=== PATIENT | female | born 1950 | race Hispanic/Latino ===

== ENCOUNTER 2017-12-26 18:25 | Emergency (ER) | payer MEDICARE ==
[~2017-12-26] VITALS: Ht 157.5 cm; Wt 98.0 kg
[~2017-12-26 18:25] MED LIST: ALDACTONE25 MG PO; ASPIRIN81 MG PO; ATORVASTATIN CA20 MG PO; CLOPIDOGREL75 MG PO; FAMOTIDINE20 MG PO; FUROSEMIDE40 MG PO; HYDROXYZINE HCL25 MG PO; LISINOPRIL10 MG PO; LOSARTAN POTASS25 MG PO; METOPROLOL TART25 MG PO; METOPROLOL TART50 MG PO; PREDNISONE10 MG PO; PROTONIX40 MG/ML PO
[2017-12-26] MEDS ORDERED: METHYLPREDNISOLONE SOD SUCC 125 MG/2ML VIAL IM ONE (18:45)
[2017-12-26 19:08] VITALS: BP 145/71
== END 2017-12-26 19:13 | disposition home or self-care (01) ==
LOC: FSED 18:25
DX: L27.0 Generalized skin eruption due to drugs and medicaments taken internally (principal); T39.1X5A Adverse effect of 4-Aminophenol derivatives, initial encounter
CPT/HCPCS: 99282; J2930

== ENCOUNTER 2018-12-13 17:32 | Emergency (ER) | payer MEDICARE ==
[~2018-12-13] VITALS: Ht 157.5 cm; Wt 98.0 kg
--- OUTSIDE RECORDS SUMMARY | 2018-12-13 17:34 | XMS REPORT | Clinical Summary ---
Author Author [facility] Organization [facility] Address Unknown Phone Unavailable Care Team Providers Care Guitar Maker Hand Name Role Phone Sharpless PCP Diego Salvador Unavailable Allergies Comments Active Allergy Reactions Severity Noted Date Rash, eosinophilia Ertapenem 03/09/2015 Medications End Date Status Medication Sig Dispensed Refills Start Date Active insulin lispro (HUMALOG) <150 No 10 mL 0 100 unit/mL injection Insulin. 5 151 - 200 1 unit 201 - 250 2 units 251 - 300 4 units 301 - 350 6 units 351 - 400 8 units. >400, give 8 u call pcp. Active famotidine (PEPCID) 40 MG Take 40 mg by 0 tablet mouth daily. Active docusate sodium (COLACE) Take 100 mg 0 100 MG capsule by mouth 2 (two) times daily. Active Problems Problem Noted Date Acute myocardial infarction of inferolateral wall, initial episode of care 02/11/2015 Multiple vessel coronary artery disease 02/11/2015 Chronic total occlusion of coronary artery 02/11/2015 Diabetes mellitus with complication 02/11/2015 Cardiac arrest 02/07/2015 Social History Date Tobacco Use Types Packs/Day Years Used Unknown If Ever Smoked Alcohol Use Drinks/Week oz/Week Comments No Sex Assigned at Date Recorded Not on file Industry Job Start Date Occupation Not on file Not on file Not on file Travel End Travel History Travel Start No recent travel history available. 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 02/17/2016 [id number] / / [id number] Promus Premier [place] Implanted: Qty: 1 on 02/07/2015 SCIENTIFIC 04/14/2016 [id number] / / [id number] Promus Premier [place] Implanted: Qty: 1 on 02/07/2015 [employer]ENTIFIC 03/10/2016 [id number] / / [id number] Promus Premier [place] Implanted: Qty: 1 on 02/07/2015 [employer]ENTIFIC Results Not on fileafter 12/12/2017 Insurance Payer Benefit Subscriber ID Type Phone Address Plan / Group MEDICARE MEDICARE A xxxxxxxxxx Medicare B MEDICAID MEDICAID xxxxxxxxx Medicaid OF [place] Advance Directives For more information, please contact: [facility] [address] [place] [address] Date Inactivated Comments Code Status Date Activated 05/22/2015 11:31 PM Full Code 02/07/2015 11:51 AM This code status was determined by: Patient
--- OUTSIDE RECORDS SUMMARY | 2018-12-13 17:34 | XMS REPORT ---
Author Author [facility] Address Unknown Phone Unavailable Care Team Providers Care Greenhouse Specialist Name Role Phone RITIKA GILBERT Unavailable Unavailable Problems This patient has no known problems. Allergies, Adverse Reactions, Alerts This patient has no known allergies or adverse reactions. Medications This patient has no known medications. Results Test Description Test Time Test Comments Text Results Atomic Results Result Comments AMIKACIN LEVEL, RANDOM 2017-10-28 11:13:00 AMIKACIN, RANDOM (HAY) (test [id number]) 13.4 mcg/mL SCAN RESULT (test [id number])
--- NOTE | 2018-12-13 21:02 | Diagnostic Imaging Report ---
CXR 2 VIEW - HOPD, 12/13/2018 12:00 AM Technique: CXR 2 VIEW - HOPD Comparison: None available. Clinical history: Flu Findings: See Impression Impression: 1. Mildly enlarged cardiac silhouette. 2. Prominent ben which may be related to enlargement of the central pulmonary arteries. Adenopathy not excluded but considered less likely. Recommend comparison with priors or attention on follow-up. 3. No consolidation or edema. No effusion or pneumothorax. Signed by: Dr Laura Al MD on 12/13/2018 8:59 PM
[2018-12-13 21:32] VITALS: BP 143/81
== END 2018-12-13 21:36 | disposition home or self-care (01) ==
LOC: FSED 17:32
DX: R05 Cough (principal); J20.9 Acute bronchitis, unspecified; J02.9 Acute pharyngitis, unspecified
CPT/HCPCS: 71046; 80053; 81003; 82553; 83518; 84484; 85025; 87400; 93005; 99283

== ENCOUNTER 2020-04-30 20:49 | Inpatient (IN) | payer MEDICARE, OTHER ==
[~2020-04-30] VITALS: Ht 157.5 cm; Wt 98.9 kg
[~2020-04-30 20:49] MED LIST changes: +ETOMIDATE 2 MG/ML 10 ML INJ IV ONE; +MIDAZOLAM HCL 2 MG/2 ML VIAL ONE; +SUCCINYLCHOLINE CHLORIDE 20 MG/ML 10ML VIAL ONE
[2020-04-30] MEDS ORDERED: AMIODARONE HCL 150MG 100 ML ONE (21:20)
[2020-04-30] MEDS ORDERED: PROPOFOL IV EMULSION 10MG/ML 100 ML ONE (21:21)
[2020-04-30] MEDS ORDERED: AMIODARONE 900MG 500 ML IV ONE (21:30)
[2020-04-30] MEDS ORDERED: SODIUM CHLORIDE 0.9% 1000ML 2,000 ML ONE (21:45)
[2020-04-30 21:46] LABS: BASOPHILS % 0.1 % (0.0-1.0); EOSINOPHILS % 0.4 % (0.0-6.0); HEMATOCRIT 39.1 % (34.2-44.1); HEMOGLOBIN 11.8 g/dL (12.0-16.0); LYMPHOCYTES # (AUTO) 1.5 (1.0-3.2); LYMPHOCYTES % 20.3 % (18.0-39.1); MEAN CORPUSCULAR HEMOGLOBIN 29.4 pg (28-32); MEAN CORPUSCULAR HGB CONC 30.2 g/dL (31-35); MEAN CORPUSCULAR VOLUME 97.3 fL (81-99); MONOCYTES # (AUTO) 0.2 (0.2-0.8); MONOCYTES % 2.1 % (4.4-11.3); NEUTROPHILS # (AUTO) 5.6 (2.1-6.9); NEUTROPHILS % 75.4 % (38.7-80.0); PLATELET COUNT 143 x10e3/uL (140-360); RED BLOOD COUNT 4.02 x10e6/uL (3.6-5.1); RED CELL DISTRIBUTION WIDTH 13.6 % (11.7-14.4)
[2020-04-30 21:58] LABS: INR 0.98; PROTHROMBIN TIME 13.6 seconds (11.9-14.5)
[2020-04-30 21:59] LABS: PARTIAL THROMBOPLASTIN TIME 35.7 seconds (23.8-35.5)
[2020-04-30] MEDS ORDERED: CEFTRIAXONE SOD 1 GM/NS 50 ML 50 ML IV ONE (22:00)
[2020-04-30] MEDS ORDERED: AZITHROMYCIN 500MG/NS 250 ML 250 ML IV ONE (22:00)
[2020-04-30] MEDS ORDERED: SODIUM CHLORIDE 0.9% 1000ML 1,000 ML IV ONE ×2 (22:00)
[2020-04-30] MEDS ORDERED: ACETAMINOPHEN 325 MG/10 ML UDC NG ONE (22:00)
[2020-04-30 22:03] LABS: ABG PH 7.26 (7.35-7.45)
[2020-04-30 22:04] LABS: ABG HCO3 20 mmol/L (22-26); ABG PCO2 46 mmHg (35-45); ABG PO2 66 mmHg (80-105)
[2020-04-30 22:07] LABS: ALBUMIN 2.5 g/dL (3.5-5.0); ALBUMIN/GLOBULIN RATIO 0.6 (0.8-2.0); ANION GAP 16.6 mmol/L (8-16); CREATININE, SERUM 1.56 mg/dL (0.57-1.11); POTASSIUM 4.6 mmol/L (3.5-5.1)
[2020-04-30] MEDS ORDERED: PROPOFOL IV EMULSION 10MG/ML 100 ML IV PRN (22:15)
[2020-04-30 22:21] LABS: CALCIUM 7.5 mg/dL (8.4-10.2)
--- NOTE | 2020-04-30 22:22 | NUR ---
DEBORAH MARIE NOTIFIED AND AWARE OF CRITICAL LAB VALUE, BLOOD GLUCOSE 457.
[2020-04-30] MEDS ORDERED: INSULIN REGULAR, HUMAN 100 UNIT/1 ML 3ML VIAL SQ ONE (22:30)
[2020-04-30 22:41] LABS: CLARITY,URINE CLOUDY (CLEAR); COLOR,URINE YELLOW (YELLOW); KETONES,URINE NEGATIVE (NEGATIVE); LEUKOCYTE ESTERASE ,URINE NEGATIVE (NEGATIVE); NITRITE,URINE NEGATIVE (NEGATIVE)
[2020-04-30 22:42] LABS: BILIRUBIN,URINE NEGATIVE (NEGATIVE); PROTEIN,URINE DIPSTICK >=300 (NEGATIVE)
[2020-04-30 22:54] LABS: AMORPHOUS SEDIMENT,URINE MANY (FEW); BACTERIA,URINE MANY /HPF; EPITHELIAL CELLS,URINE MANY /LPF; RBC,URINE >50 /HPF (0-5); WBC,URINE (MAN) 21-50 /HPF (0-5)
[2020-04-30] MEDS ORDERED: ACETAMINOPHEN 1000 MG/100 ML IV STA (23:01)
[2020-04-30] MEDS ORDERED: NOREPINEPHRINE 8 MG/D5W 250 ML 250 ML ONE (23:06)
[2020-04-30] MEDS ORDERED: AMIODARONE HCL 150 MG/100 ML BAG IV ONE (23:15)
[2020-04-30] MEDS ORDERED: NOREPINEPHRINE INJ 4MG/4ML 8 MG in DEXTROSE 5% 250ML 250 ML IV PRN (23:15)
[2020-04-30] MEDS ORDERED: MIDAZOLAM HCL 5MG/ML 10ML VIAL 100 ML IV ONE (23:27)
[2020-04-30] MEDS ORDERED: FENTANYL 2000MCG/NS 250 250 ML ONE (23:27)
[2020-04-30] MEDS: MIDAZOLAM HCL 50 MG in SODIUM CHLORIDE 0.9% 100 ML 90 ML IV PRN (23:28)
[2020-04-30] MEDS: FENTANYL CITRATE INJ 2,000 MCG in SODIUM CHLORIDE 0.9% 250ML 210 ML IV PRN (23:28)
[2020-05-01] VITALS (38 sets, daily range): BP systolic 80–141; BP diastolic 42–117
[2020-05-01] MEDS: NOREPINEPHRINE INJ 4MG/4ML 8 MG in DEXTROSE 5% 250ML 242 ML IV PRN ×2 (00:12→06:00)
--- NOTE | 2020-05-01 00:39 | Emergency Department Note ---
History of Present Illnes History of Present Illness Chief Complaint: Respiratory History of Present Illness This is a 69 year old female ARRIVED VIA EMS WITH REPORT OF SEIZURE ACTIVITY AND NOW UNRESPONSIVE AND NOT BREATHING.PT IS BEING BAGGED BY EMS ON ARRIVAL WITH 02 SATS OF 86 %. . 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 Any updates have been documented here. 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) Sulfa (Sulfonamide Antibiotics) (Verified Allergy, Unknown, 08/11/16) losartan (Verified Allergy, Unknown, rash over body, 08/12/16) Triage Vital Signs Vital Signs Date Time Temp Pulse Resp B/P (MAP) Pulse Ox O2 Delivery O2 Flow Rate FiO2 04/30/20 21:20 133 30 89 33.0 04/30/20 23:16 100.8 102/58 Vital signs reviewed: Yes Physical Exam CONSTITUTIONAL Constitutional: Present ill appearing, Present other (BEING BAGGED BY EMS ON ARRIVAL) HENT HENT: Present normocephalic, Present atraumatic HENT L/R: Present left ext ear normal, Present right ext ear normal EYES Eyes: Reports PERRL, Reports conjunctivae normal NECK Neck: Present ROM normal PULMONARY Pulmonary: Present respiratory distress, Present rhonchi (AT BASE BILATERAL), Present other (BEING BAGGED BY EMS ON ARRIVAL) CARDIOVASCULAR Cardiovascular: Present regular rhythm, Present heart sounds normal, Present ca pillary refill normal, Present normal rate GASTROINTESTINAL Abdominal: Present soft, Present nontender, Present bowel sounds normal GENITOURINARY Genitourinary: Present exam deferred SKIN Skin: Present warm, Present dry MUSCULOSKELETAL Musculoskeletal: Present ROM normal NEUROLOGICAL Neurological: Present other (PT UNRESPONSIVE, NO RESPONSE TO PAINFUL STIMULI ) PSYCHOLOGICAL Psychological: Present mood/affect normal, Present judgement normal Results Laboratory Result Diagram: 04/30/20213004/30/202130 Laboratory Laboratory Tests Test 04/30/20 23:29 04/30/20 22:07 04/30/20 21:49 04/30/20 21:31 Lactic Acid Level 2.2 mmol/L (0.5-2.0) 5.0 mmol/L (0.5-2.0) B-Type Natriuretic Peptide 358.0 pg/mL (0-100) Arterial Blood pH 7.26 (7.35-7.45) Arterial Blood Partial Pressure CO2 46 mmHg (35-45) Arterial Blood Partial Pressure O2 66 mmHg (80-105) Arterial Blood HCO3 20 mmol/L (22-26) Arterial Blood Oxygen Saturation 89.0 % (95-98) Arterial Blood Base Excess -7.0 mmol/L (-2 - 3) FiO2 100 % White Blood Count 7.49 x10e3/uL (4.8-10.8) Red Blood Count 4.02 x10e6/uL (3.6-5.1) Hemoglobin 11.8 g/dL (12.0-16.0) Hematocrit 39.1 % (34.2-44.1) Mean Corpuscular Volume 97.3 fL (81-99) Mean Corpuscular Hemoglobin 29.4 pg (28-32) Mean Corpuscular Hemoglobin Concent 30.2 g/dL (31-35) Red Cell Distribution Width 13.6 % (11.7-14.4) Platelet Count 143 x10e3/uL (140-360) Neutrophils (%) (Auto) 75.4 % (38.7-80.0) Lymphocytes (%) (Auto) 20.3 % (18.0-39.1) Monocytes (%) (Auto) 2.1 % (4.4-11.3) Eosinophils (%) (Auto) 0.4 % (0.0-6.0) Basophils (%) (Auto) 0.1 % (0.0-1.0) Neutrophils # (Auto) 5.6 (2.1-6.9) Lymphocytes # (Auto) 1.5 (1.0-3.2) Monocytes # (Auto) 0.2 (0.2-0.8) Eosinophils # (Auto) 0.0 (0.0-0.4) Basophils # (Auto) 0.0 (0.0-0.1) Absolute Immature Granulocyte (auto 0.13 x10e3/uL (0-0.1) Prothrombin Time 13.6 seconds (11.9-14.5) Prothromb Time International Ratio 0.98 Activated Partial Thromboplast Time 35.7 seconds (23.8-35.5) Urine Color Yellow (YELLOW) Urine Clarity Cloudy (CLEAR) Urine pH 6 (5 - 7) Urine Specific [place] >=1.030 (1.010-1.025) Urine Protein >=300 (NEGATIVE) Urine Glucose (UA) 2+ (NEGATIVE) Urine Ketones Negative (NEGATIVE) Urine Blood 2+ (NEGATIVE) Urine Nitrite Negative (NEGATIVE) Urine Bilirubin Negative (NEGATIVE) Urine Urobilinogen 4.0 mg/dL (0.2 - 1) Urine Leukocyte Esterase Negative (NEGATIVE) Urine RBC >50 /HPF (0-5) Urine WBC 21-50 /HPF (0-5) Urine Epithelial Cells Many /LPF (NONE) Urine Amorphous Sediment Many (FEW) Urine Bacteria Many /HPF (NONE) Urine Hyaline Casts 2-5 (0-1) Urine Fine Granular Casts 6-10 (0) Urine Coarse Granular Casts 6-10 (0) Sodium Level 132 mmol/L (136-145) Potassium Level 4.6 mmol/L (3.5-5.1) Chloride Level 99 mmol/L (98-107) Carbon Dioxide Level 21 mmol/L (22-29) Anion Gap 16.6 mmol/L (8-16) Blood Urea Nitrogen 15 mg/dL (7-26) Creatinine 1.56 mg/dL (0.57-1.11) Estimat Glomerular Filtration Rate 33 ML/MIN (60-) BUN/Creatinine Ratio 10 (6-25) Glucose Level 457 mg/dL (74-118) Calcium Level 7.5 mg/dL (8.4-10.2) Total Bilirubin 0.5 mg/dL (0.2-1.2) Aspartate Amino Transf (AST/SGOT) 175 IU/L (5-34) Alanine Aminotransferase (ALT/SGPT) 75 IU/L (0-55) Alkaline Phosphatase 185 IU/L (40-150) Creatine Kinase 201 IU/L (29-168) Creatine Kinase MB 3.00 ng/mL (0-5.0) Troponin I 0.033 ng/mL (0-0.300) Total Protein 6.5 g/dL (6.5-8.1) Albumin 2.5 g/dL (3.5-5.0) Globulin 4.0 g/dL (2.3-3.5) Albumin/Globulin Ratio 0.6 (0.8-2.0) Lab results reviewed: Yes Imaging Imaging results reviewed: Yes Impressions EXAMINATION: CHEST SINGLE (PORTABLE) INDICATION: Short of breath, intubated COMPARISON: None FINDINGS: TUBES and LINES: ET tube tip 4.2 cm above eliseo.. LUNGS: Extensive bilateral patchy airspace opacities. PLEURA: No pleural effusion or pneumothorax. HEART AND MEDIASTINUM: The cardiomediastinal silhouette is unremarkable. BONES AND SOFT TISSUES: No acute osseous lesion. Soft tissues are unremarkable. UPPER ABDOMEN: No free air under the diaphragm. IMPRESSION: Extensive airspace disease concerning for multifocal pneumonia, likely viral. Edema is also a possibility. ET tube tip 4.2 cm above eliseo.. Signed by: Rupert Coronel DO on 05/01/2020 1:[address] MPRESSION: 1. No acute intracranial abnormalities. 2. Mild supratentorial chronic microvascular ischemic change with old right charles radiata lacunar infarct. 3. Mild generalized cerebral volume loss. Signed by: Dr. Roque Angeles M.D. on 05/01/2020 1:45 AM Imaging Comments et tube advance 2 cm Procedures 12 Lead ECG Interpretation ECG Interpretation : ECG: ECG 1 Conductor/Engineer: Interpreted by ED physician Date: May 01, 2020 Time: 21:01 Rhythm: atrial flutter Rate: tachycardia BPM: 129 QRS axis: normal ST segments normal: No (NON SPECIFIC CHANGES) T waves normal: No (NON PSECIFIC CHANGES) Q waves: II, III, aVF, V1 Clinical Impression: abnormal ECG Central Line Placement Central Line Location: right femoral Time out performed: No Patient Placed on Monitor/Puls: Yes Prep: mask, gown, gloves Central Line Prep: Chlorhexidine scrub Ultrasound Used for Placement: No Central Line Lumen Inserted: triple Post Procedure: sutured in place, good blood return, all ports aspirated/flushed/capped, sterile dressing applied Patient tolerated procedure: well Complications: none Intubation Time out performed: No Sedative: Etomidate Mg given: 20 Paralytic: Succinylcholine Mg given: 100 Laryngoscope: fiber optic video scope Endotracheal tube size: 7.5 ET tube uncuffed: Yes Tube secured depth (cm): 22 Tube secured location: teeth Tube placement confirmation: visualize tube passing cords, equal breath sounds bilaterally, no breath sounds over epigastrium, capnometry Patient tolerated procedure: well Complications: none Critical Care Time Total Critical Care Time (min): 55 Time ED Physician saw patient: 20:50 Critical care time exclusive o: treating other patients Critcal care necessary due to: circulatory failure, PARKING INSPECTOR failure or compromise, respiratory failure, sepsis, shock Critcal care time spent by me: develop tx plan w patient/surrogate, discussion w consultants, interpret cardiac output measures, evaluation patient response to tx, examination of patient, obtaining hx from patient/surrogate, order/perform tx or interventions, order/review laboratory studies, order/review radiographic studies, pulse oximetry, re-evaluation of patient condition, review of old charts, vascular access procedures, ventilator management Assessment & Plan Medical Decision Making MDM PT UNRESPONSIVE, FEBRILE WITH RESPIRATORY DISTRESS ON ARRIVAL CBC, CMP, EKG, LACTIC ACID, BLOOD CULTURE, URINE CULTURE, UA, CXR, CT BRAIN , COVID 19, CARDIAC ENZYMES, ORDERED TO EVAL FOR SEPSIS, PNEUMONIA, UTI, COVID 19, ELECTROLYTE ABNORMALITY, MYOCARDIAL INFARCTION, PULMONARY EDEMA, PT REQUIRES INTUBATION ON ARRIVAL ROCEPHIN 1 GRAM IV ORDERED ZITHROMAX 500 MG IV ORDERED PT BECAME HYPOTENSIVE, NS 30CC/KG ORDERED PT'S IDEAL BODY WEIGHT OF 50 KG USED FOR THIS BOLUS PT BECAME HYPOTENSIVE AGAIN AT 0005 AND LEVOPHED STARTED, I COMPLETED BEDSIDE FLUID RESUSCITATION EXAM AT 0005 PT'S FAMILY SHOWED UP AT 2225 AND STATES PT HAD A POSITIVE COVID 19 TEST ON FRIDAY, as we have no icu beds pt will need transfer to another facility i spoke with dr Garner at [facility] and he accepts pt for transfer Assessment & Plan Final Impression: (1) COVID-19 (2) Viral pneumonia (3) UTI (urinary tract infection) (4) Respiratory failure (5) Septic shock Depart Disposition: TRANS TO OTHER [facility] FAC[facility] Last Vital Signs Date Time Temp Pulse Resp B/P (MAP) Pulse Ox O2 Delivery O2 Flow Rate FiO2 05/01/20 00:19 100.2 77 24 71/46 90 04/30/20 21:20 33.0 Home Meds Active Scripts Pantoprazole Sod (PROTONIX) 40 Mg/Ml Susp, 40 MG PO ACB for 30 Days Prov:DILCIA DIXON 08/12/16 Lisinopril (LISINOPRIL) 10 Mg Tablet, 10 MG PO Q12HR for 30 Days Prov:DILCIA DIXON 08/12/16 Reported Medications Furosemide (FUROSEMIDE) 40 Mg Tablet, 20 MG PO Daily, #30 TAB 08/11/16 Metoprolol Tartrate (METOPROLOL TARTRATE) 50 Mg Tablet, 50 MG PO DAILY, TAB 08/11/16 Aspirin (ASPIRIN) 81 Mg Tab.chew, 81 MG PO DAILY 11/14/15 Atorvastatin Calcium (ATORVASTATIN CALCIUM) 20 Mg Tablet, 20 MG PO 2100, TAB 11/14/15 Clopidogrel Bisulfate (CLOPIDOGREL) 75 Mg Tablet, 75 MG PO DAILY, #30 TAB 11/14/15 Medications in the ED Amiodarone HCl 100 ml @ ud STK-MED ONCE .ROUTE ; Start 04/30/20 at 21:20; Stop 04/30/20 at 21:15; Status DC Propofol 100 ml @ ud STK-MED ONCE .ROUTE ; Start 04/30/20 at 21:21; Stop at 21:15; Status DC Amiodarone HCl 500 ml @ ud STK-MED ONCE IV ; Start 04/30/20 at 21:30; Stop 04/30/20 at 21:25; Status DC Sodium Chloride 2,000 ml @ ud STK-MED ONCE .ROUTE ; Start 04/30/20 at 21:45; Stop 04/30/20 at 21:40; Status DC Sodium Chloride 1,000 ml @ 0 mls/hr Q0M ONCE IV Last administered on 04/30/20at 22:00; Admin Dose 999 MLS/HR; Start 04/30/20 at 22:00; Stop 04/30/20 at 22:01; Status DC Sodium Chloride 1,000 ml @ 0 mls/hr Q0M ONCE IV Last administered on 04/30/20at 22:30; Admin Dose 999 MLS/HR; Start 04/30/20 at 22:00; Stop 04/30/20 at 22:01; Status DC Ceftriaxone Sodium 50 ml @ 100 mls/hr ONCE ONCE IV Last administered on 04/30/20at 23:28; Admin Dose 100 MLS/HR; Start 04/30/20 at 22:00; Stop 04/30/20 at 22:29; Status DC Azithromycin 250 ml @ 200 mls/hr NOW ONCE IV Last administered on 04/30/20at 23:28; Admin Dose 200 MLS/HR; Start 04/30/20 at 22:00; Stop 04/30/20 at 23:14; Status DC Acetaminophen 975 mg ONCE ONCE NG ; Start 04/30/20 at 22:00; Stop 04/30/20 at 23:02; Status DC Propofol 100 ml @ 0 mls/hr TITRATE PRN IV SEDATION; Start 04/30/20 at 22:15; Stop 05/30/20 at 22:14 Insulin Human Regular 12 unit ONCE ONCE SQ Last administered on 04/30/20at 22:35; Admin Dose 12 UNIT; Start 04/30/20 at 22:30; Stop 04/30/20 at 22:34; Status DC Acetaminophen 1,000 mg NOW STAT IV Last administered on 04/30/20at 22:15; Admin Dose 1,000 MG; Start 04/30/20 at 23:01; Stop 04/30/20 at 23:03; Status DC Norepinephrine Bitartrate 250 ml @ ud STK-MED ONCE .ROUTE ; Start 04/30/20 at 23:06; Stop 04/30/20 at 23:01; Status DC Norepinephrine 8 mg/Dextrose 258 ml @ 0 mls/hr TITRATE PRN IV HYPOTENSION; Start 04/30/20 at 23:15; Stop 04/30/20 at 23:12; Status DC Norepinephrine 8 mg/Dextrose 250 ml @ 0 mls/hr TITRATE PRN IV HYPOTENSTION Last administered on 05/01/20at 00:12; Admin Dose 9.4 MLS/HR; Start 04/30/20 at 23:15; Stop 05/30/20 at 23:14 Amiodarone HCl 150 mg ONCE ONCE IV Last administered on 04/30/20at 21:30; Admin Dose 150 MG; Start 04/30/20 at 23:15; Stop 04/30/20 at 23:16; Status DC Midazolam HCl 50 mg/Sodium Chloride 100 ml @ 0 mls/hr TITRATE PRN IV SEDATION Last administered on 04/30/20at 23:28; Admin Dose 6 MLS/HR; Start 04/30/20 at 23:30; Stop 05/07/20 at 23:29 Fentanyl 2000 mcg/ Sodium Chloride 250 ml @ 0 mls/hr TITRATE PRN IV SEDATION Last administered on 04/30/20at 23:28; Admin Dose 12.5 MLS/HR; Start 04/30/20 at 23:30; Stop 05/07/20 at 23:29 Midazolam HCl 100 ml @ ud STK-MED ONCE IV ; Start 04/30/20 at 23:27; Stop 04/30/20 at 23:22; Status DC Fentanyl Citrate 250 ml @ ud STK-MED ONCE .ROUTE ; Start 04/30/20 at 23:27; S top 04/30/20 at 23:22; Status DC DUSTIN FLOYD MD May 01, 2020 00:39
[2020-05-01] MEDS ORDERED: DEXTROSE 50% SYRINGE 50 ML IV STA (00:53)
[2020-05-01] MEDS ORDERED: DEXTROSE 50% SYRINGE 50 ML IV ONE ×2 (00:54→00:56)
--- NOTE | 2020-05-01 01:16 | Diagnostic Imaging Report ---
EXAMINATION: CHEST SINGLE (PORTABLE) INDICATION: Short of breath, intubated COMPARISON: None FINDINGS: TUBES and LINES: ET tube tip 4.2 cm above eliseo.. LUNGS: Extensive bilateral patchy airspace opacities. PLEURA: No pleural effusion or pneumothorax. HEART AND MEDIASTINUM: The cardiomediastinal silhouette is unremarkable. BONES AND SOFT TISSUES: No acute osseous lesion. Soft tissues are unremarkable. UPPER ABDOMEN: No free air under the diaphragm. IMPRESSION: Extensive airspace disease concerning for multifocal pneumonia, likely viral. Edema is also a possibility. ET tube tip 4.2 cm above eliseo.. Signed by: Rupert Coronel DO on 05/01/2020 1:12 AM
--- NOTE | 2020-05-01 01:49 | Diagnostic Imaging Report ---
CT BRAIN WO HISTORY: Altered mental status COMPARISON: None. Technique: Noncontrast axial scans were obtained from skull base to the vertex. Coronal and sagittal reconstructions obtained from the axial data. One or more of the following dose reduction techniques were used: Automated exposure control, adjustment of the mA and/or kV according to patient size, and/or utilization of iterative reconstruction technique. DISCUSSION: Scalp/Skull: Unremarkable. Brain sulci: Mildly prominent. Ventricles: Compensatory dilatation. Extra-axial spaces: No masses or fluid collections. Carotid siphon calcifications are present. Parenchyma: Mild bilateral deep white matter hypodensity is likely chronic microvascular ischemic change. There is an old lacunar infarct in the right charles radiata. Otherwise, no masses, hemorrhage, or large vascular territory acute infarct. Dural sinuses: No abnormal densities. Sellar/Suprasellar region: Nonspecific empty sella. Skull base: Intact. Incidental findings: Mild scattered bilateral paranasal sinus mucosal thickening is present. A small amount of fluid layers in the nasopharynx. Sclerotic left mastoid air cells may be from remote/chronic inflammation. IMPRESSION: 1. No acute intracranial abnormalities. 2. Mild supratentorial chronic microvascular ischemic change with old right charles radiata lacunar infarct. 3. Mild generalized cerebral volume loss. Signed by: Dr. Roque Angeles M.D. on 05/01/2020 1:45 AM
--- NOTE | 2020-05-01 02:29 | Diagnostic Imaging Report ---
EXAM: CT Chest WITHOUT contrast INDICATION: Short of breath COMPARISON: None TECHNIQUE: Chest was scanned utilizing a multidetector helical scanner from the lung apex through the level of the adrenal glands without administration of IV contrast. Absence of intravenous contrast decreases sensitivity for detection of lymphadenopathy and vascular pathology. Coronal and sagittal reformations were obtained. Routine protocol was performed. IV CONTRAST: None COMPLICATIONS: None RADIATION DOSE: Total DLP: 1290 mGy*cm Estimated effective dose: (DLP x 0.014 x size factor) mSv CTDIvol has been reviewed. It is below the limits set by the Radiation Protocol Committee (RPC). Dose modulation, iterative reconstruction, and/or weight based adjustment of the mA/kV was utilized to reduce the radiation dose to as low as reasonably achievable. FINDINGS: LINES/ TUBES: ET tube tip 4 cm above eliseo.. LUNGS AND AIRWAYS: Extensive groundglass and consolidative opacities scattered throughout the lungs Airways are normal. PLEURA: The pleural spaces are clear. HEART AND MEDIASTINUM: The thyroid gland is normal. No mediastinal, hilar or axillary lymphadenopathy. Mild cardiomegaly.. There is no pericardial effusion. Calcifications of the aorta and major branches including the coronary arteries. Left ventricular lateral papillary muscle calcification. Mild pulmonary artery dilation. UPPER ABDOMEN: Fatty infiltration of the pancreas. BONES: The visualized bony thorax is within normal limits. Degenerative changes. Osseous demineralization. SOFT TISSUES: Unremarkable. IMPRESSION: Extensive groundglass and consolidative opacities scattered throughout the lungs can be severe multifocal pneumonia, possibly viral, although edema is also possible. Triple vessel coronary artery calcific atherosclerosis. Mild cardiomegaly. Left ventricular lateral papillary muscle calcification can be due to prior/remote myocardial infarction. Mild pulmonary artery dilation can be seen with pulmonary hypertension. Signed by: Rupert Coronel DO on 05/01/2020 2:26 AM
--- NOTE | 2020-05-01 03:45 | NUR ---
PT SPO2 DESATURATED TO 80% ON VENT. PT TOO UNSTABLE TO TRANSFER TO RECEIVING HOS[facility]. ER MD, ER STAFF AND RT AT BEDSIDE.
[2020-05-01] MEDS ORDERED: DEXAMETHASONE SOD PHOS 10 MG/1 ML VIAL ONE (03:48)
[2020-05-01] MEDS ORDERED: DEXAMETHASONE SOD PHOS 10 MG/1 ML VIAL IV ONE (04:00)
[2020-05-01] MEDS ORDERED: SODIUM CHLORIDE 0.9% 1000ML 1,000 ML IV ONE (04:15)
[2020-05-01] MEDS ORDERED: DEXTROSE 50% SYRINGE 50 ML IV PRN ×2 (04:15→04:45)
--- NOTE | 2020-05-01 04:27 | NUR ---
SPOKE WITH [facility]ANDNI [place], [employer]EDIT [employer]F TO CANCEL TRANSFER TO [facility].
--- NOTE | 2020-05-01 04:30 | NUR ---
SPOKE TO XAVIER AMARAL ER CHARGE AT [facility] TO NOTIFY CANCEL OF TRANSFER. PLUMBING WAREHOUSE HELPER NOTIFIED AND AWARE.
[2020-05-01] MEDS ORDERED: VECURONIUM BROMIDE FOR INJ 20 MG VIAL IV PRN (04:45)
[2020-05-01] MEDS ORDERED: INSULIN REGULAR, HUMAN 3ML VL 300 UNIT in SODIUM CHLORIDE 0.45% 100 ML 300 ML IV SCH ×2 (04:45)
[2020-05-01] MEDS ORDERED: WATER STERILE 10 ML VIAL IV PRN (04:45)
[2020-05-01] MEDS ORDERED: VECURONIUM BROMIDE FOR INJ 20 MG VIAL ONE (04:50)
[2020-05-01] MEDS ORDERED: SODIUM BICARBONATE 8.4% SYRING 50 ML ONE ×3 (05:28→06:30)
[2020-05-01] MEDS ORDERED: NOREPINEPHRINE 8 MG/D5W 250 ML 250 ML ONE ×2 (05:36→15:24)
[2020-05-01] MEDS ORDERED: ROCURONIUM BROMIDE IV ONE (05:48)
[2020-05-01] MEDS ORDERED: SODIUM CHLORIDE 0.9% 250ML 250 ML ONE (05:48)
[2020-05-01 05:50] LABS: ABG PCO2 63 mmHg (35-45); ABG PH 7.21 (7.35-7.45)
[2020-05-01 05:51] LABS: ABG PO2 49 mmHg (80-105)
[2020-05-01] MEDS ORDERED: ROCURONIUM BROMIDE 1 ML IV ONE (05:51)
[2020-05-01 05:52] LABS: ABG HCO3 25 mmol/L (22-26)
--- NOTE | 2020-05-01 05:59 | Consultation ---
DATE OF CONSULTATION: Pulmonary Critical Care Consultation ADDITIONAL ATTENDING PHSYICIAN: Dr. Diego Espinoza. CHIEF COMPLAINT: Difficulty breathing, poor responsiveness and a positive COVID test. HISTORY OF PRESENT ILLNESS: The patient is a 69-year-old woman. She has a history of diabetes and hypertension. She also has a history of prior cardiac disease. She had 3 prior cardiac stents. According to the family, she has had difficulty breathing for about a week. She has also had increased cough and some fever. She had diarrhea. An outside COVID test was positive. PAST SURGICAL HISTORY: 1. Status post cardiac stents x3. 2. Status post knee replacement. 3. Tubal ligation. PAST MEDICAL HISTORY: 1. Hypertension. 2. Diabetes. 3. Congestive heart failure. SOCIAL HISTORY: Not obtainable. ALLERGIES: NO KNOWN DRUG ALLERGIES. FAMILY HISTORY: Noncontributory. REVIEW OF SYSTEMS: The patient did have some fevers. There is no headache. She has no neck pain. She did not complain of chest pain. She had dyspnea and cough. She has no abdominal pain. She had some diarrhea. She had no leg edema. PHYSICAL EXAMINATION: VITAL SIGNS: The patient is afebrile. The blood pressure is now 90/45 on Levophed at 30 mcg. She is on a PRVC mode of ventilation at a rate of 30 with a tidal volume of 390 and a PEEP of 20. Her FiO2 is set at 100%. Her saturations are 86%. She is on Versed at 8 mg along with fentanyl 150 mcg. She received vecuronium. She has no oral endotracheal tube. CARDIAC: Reveals regular rate and rhythm with normal S1 and S2. LUNGS: Auscultation of lungs shows decreased breath sounds at the bases. There is no wheezing. ABDOMEN: Soft and nontender. There is no rebound or guarding. EXTREMITIES: Shows no leg edema or calf tenderness. There is no cyanosis or clubbing. NEUROLOGICAL: Shows the patient to be paralyzed. LABORATORY DATA: White blood cell count is 7.49, hemoglobin is 11.8. The platelet count is 143. BUN to creatinine ratio is 15 to 1.86. The AST is 175 and the ALT is 75. Alkaline phosphatase is 185. Albumin is 2.5. RADIOGRAPHIC DATA: Chest CT shows extensive ground-glass infiltrates. There are also calcified coronary arteries. IMPRESSION: 1. Acute respiratory failure. 2. Viral pneumonia and COVID-19 infection. 3. Chronic systolic congestive heart failure. 4. Acute kidney injury. 5. Diabetic ketoacidosis. 6. Hepatitis secondary to COVID-19 infection. 7. Gastroenteritis. 8. Anemia, unspecified. PLAN: 1. The patient will be continued on PRVC mode of ventilation. We will obtain a stat ABG. 2. Continue to adjust pressures and PEEP to try and optimize blood pressure. 3. Echocardiogram. 4. Begin insulin drip. 5. The patient has started antibiotics. 6. Dexamethasone daily. 7. Lovenox to prevent DVT prophylaxis. 8. Specialty bed. 9. Place NG tube and begin enteral feedings. 10. Prognosis is poor. Ayush Welch MD [facility]/HARDIK /[id number]
[2020-05-01] MEDS: ROCURONIUM BROMIDE 250 MG in SODIUM CHLORIDE 0.9% 250ML 225 ML IV PRN ×4 (06:00→22:30)
--- NOTE | 2020-05-01 06:01 | Diagnostic Imaging Report ---
EXAMINATION: CHEST SINGLE (PORTABLE) INDICATION: Short of breath COMPARISON: Day prior chest CT FINDINGS: TUBES and LINES: ET tube tip 4 cm above eliseo. LUNGS: Normal lung volumes. Extensive bilateral patchy and consolidated airspace opacities. PLEURA: No pleural effusion or pneumothorax. HEART AND MEDIASTINUM: Cardiac size is mildly enlarged. BONES AND SOFT TISSUES: No acute osseous lesion. Soft tissues are unremarkable. UPPER ABDOMEN: No free air under the diaphragm. IMPRESSION: Multifocal pneumonia, likely viral. A component of pulmonary edema is possible. Mild cardiomegaly. Signed by: Rupert Coronel DO on 05/01/2020 5:57 AM
[2020-05-01 06:17] LABS: BASOPHILS % 0.1 % (0.0-1.0); EOSINOPHILS % 0.1 % (0.0-6.0); HEMATOCRIT 38.5 % (34.2-44.1); HEMOGLOBIN 11.8 g/dL (12.0-16.0); LYMPHOCYTES # (AUTO) 0.4 (1.0-3.2); LYMPHOCYTES % 5.3 % (18.0-39.1); MEAN CORPUSCULAR HEMOGLOBIN 29.4 pg (28-32); MEAN CORPUSCULAR HGB CONC 30.6 g/dL (31-35); MEAN CORPUSCULAR VOLUME 95.8 fL (81-99); MONOCYTES # (AUTO) 0.1 (0.2-0.8); MONOCYTES % 1.5 % (4.4-11.3); NEUTROPHILS # (AUTO) 7.4 (2.1-6.9); NEUTROPHILS % 92.3 % (38.7-80.0); PLATELET COUNT 159 x10e3/uL (140-360); RED BLOOD COUNT 4.02 x10e6/uL (3.6-5.1); RED CELL DISTRIBUTION WIDTH 13.9 % (11.7-14.4)
[2020-05-01] MEDS ORDERED: SODIUM BICARBONATE 8.4% INJ 50 ML SYR IV STA (06:27)
[2020-05-01 06:41] LABS: ALBUMIN 2.2 g/dL (3.5-5.0); ALBUMIN/GLOBULIN RATIO 0.6 (0.8-2.0); ANION GAP 13.5 mmol/L (8-16); CALCIUM 7.1 mg/dL (8.4-10.2); CREATININE, SERUM 1.78 mg/dL (0.57-1.11); POTASSIUM 3.5 mmol/L (3.5-5.1)
--- NOTE | 2020-05-01 07:25 | Operative Report ---
DATE OF PROCEDURE: SURGEON: Ayush Welch MD PROCEDURE: Central line placement under ultrasound guidance. PREOPERATIVE DIAGNOSES: Acute kidney injury; hypotension, requiring Levophed; and coronavirus disease 2019 infection. POSTOPERATIVE DIAGNOSES: Acute kidney injury; hypotension, requiring Levophed; and coronavirus disease 2019 infection. CONSENT: Consent was deemed emergent due to refractory hypotension. ANESTHESIA: 1% lidocaine for local anesthesia. DESCRIPTION OF PROCEDURE: The patient was placed in a supine position. An ultrasound machine was used to locate the right internal jugular vein. The patient was then prepped sterilely with chlorhexidine. A full-length sterile drape, sterile gown, sterile gloves, and mask were used. 1% lidocaine was applied for local anesthesia. A 16-gauge needle was placed into the right internal jugular vein under direct visualization. A wire was placed through the needle and a dilator was used to open the skin. A triple-lumen catheter was placed over the wire by the Seldinger technique. All the ports were flushed. COMPLICATIONS: None. ESTIMATED BLOOD LOSS: None. Ayush Welch MD [facility]/MODL /[id number]
[2020-05-01] MEDS ORDERED: PANTOPRAZOLE SOD 40 MG TABEC PO SCH (07:30)
[2020-05-01] MEDS ORDERED: INSULIN REGULAR, HUMAN 100 UNIT/1 ML 3ML VIAL SQ SCH (07:30)
--- NOTE | 2020-05-01 07:36 | NUR ---
blood glucose checked result was 120.
--- NOTE | 2020-05-01 07:43 | NUR ---
Patient reevaluated in the emergency department, on maximum dose of Levothroid, requiring multiple bicarbonate pushes, on a Rocoronium drip as a paralytic. Spoke at length to patient's daughter-Hayden Farfan about her mother's clinical status. Patient is critical and is a high degree of mortality over the next few hours. Spoke to daughter about chest x-ray/chest CT findings and grave concerns about end organ dysfunction. Daughter requested initiation of Redesmivir- daughter informed that infectious disease can evaluate the patient and the ED, however, given the extent o her disease process coupled with the need for pressor support she will unlikely be a candidate for this trial medication. Patient's daughter informed that there is no cure for Coban 19, I encouraged supportive care and that CPR will not result in prolongation of life. Daughter expressed understanding and understands critical status mother, however, wishes the patient be full code. Will Comply with daughter's wishes at this time, daughter understands that despite aggressive resuscitation patient will not survive. The preceding discussion was made in a language that was understandable to the patient and she expressed understanding with her mother's current status as well as prognosis. Patient will be monitored in the ED. Dr. Espinoza informed of change of status.
[2020-05-01 07:54] LABS: BAND NEUTROPHILS % (MANUAL) 7 %; LYMPHOCYTES % (MANUAL) 6 % (19-48); MONOCYTES % (MANUAL) 1 % (3.4-9.0); NEUTROPHILS % (MANUAL) 86 % (40-74)
[2020-05-01 07:55] LABS: PLATELET ESTIMATE ADEQUATE; PLATELET MORPHOLOGY COMMENT NORMAL; RBC MORPHOLOGY COMMENT NORMAL
--- NOTE | 2020-05-01 08:25 | NUR ---
additional bag of versed spike and hung.
--- NOTE | 2020-05-01 08:40 | NUR ---
senior games technician and Dr. Welch at bedside.
--- NOTE | 2020-05-01 08:44 | NUR ---
Levophed decreased to [address] Welch.
--- NOTE | 2020-05-01 09:10 | Diagnostic Imaging Report ---
X-ray chest AP portable Comparison: 05/01/2020 at 4:06 AM History: Right IJ central line placement Findings: A right IJ central line is placed with the tip overlying SVC. There is no pneumothorax. There is no pleural effusion. Pulmonary infiltrates remain relatively unchanged compared with the previous exam. An endotracheal tube ends approximately 5 cm above the eliseo. No other acute changes. Impression: Right IJ central line with the tip overlying SVC. Signed by: Tarik Garces MD on 05/01/2020 9:06 AM
[2020-05-01] MEDS: PANTOPRAZOLE 40 MG 10ML VIAL IV SCH (10:00)
[2020-05-01] MEDS: ENOXAPARIN SOD INJ 40 MG/0.4 ML SYR SC SCH ×3 (10:00→22:30)
--- NOTE | 2020-05-01 10:06 | NUR ---
SECOND BAG OF LEVOPHED AND ROCURONIUM HUNG.
[2020-05-01] MEDS ORDERED: MIDAZOLAM HCL 5MG/ML 10ML VIAL 100 ML IV ONE (12:08)
[2020-05-01] MEDS ORDERED: FENTANYL 2000MCG/NS 250 250 ML ONE (12:09)
[2020-05-01] MEDS ORDERED: FUROSEMIDE INJ 10 MG/ML 4 ML VIAL IV SCH (12:30)
[2020-05-01] MEDS ORDERED: ALBUMIN 25% 12.5GM 0.25 GM/ML BTL IV SCH (12:30)
[2020-05-01 12:33] LABS: ABG HCO3 22 mmol/L (22-26); ABG PCO2 48 mmHg (35-45); ABG PH 7.27 (7.35-7.45); ABG PO2 55 mmHg (80-105)
[2020-05-01] MEDS: FENTANYL CITRATE INJ 2,000 MCG in SODIUM CHLORIDE 0.9% 250ML 210 ML IV PRN (12:48)
[2020-05-01] MEDS: MIDAZOLAM HCL 50 MG in SODIUM CHLORIDE 0.9% 100 ML 90 ML IV PRN (14:12)
[2020-05-01 14:38] LABS: ALBUMIN 2.8 g/dL (3.5-5.0); ALBUMIN/GLOBULIN RATIO 0.8 (0.8-2.0); ANION GAP 16.1 mmol/L (8-16); CALCIUM 7.1 mg/dL (8.4-10.2); CREATININE, SERUM 1.87 mg/dL (0.57-1.11); POTASSIUM 3.1 mmol/L (3.5-5.1)
[2020-05-01 15:08] LABS: CREATINE KINASE MB 6.1 ng/mL (0-5.0)
[2020-05-01] MEDS ORDERED: FUROSEMIDE INJ 10 MG/ML 4 ML VIAL IV ONE ×2 (15:15→17:30)
[2020-05-01] MEDS ORDERED: MIDAZOLAM HCL 5MG/ML 10ML VIAL 100 ML IV PRN (15:30)
[2020-05-01] MEDS ORDERED: NOREPINEPHRINE 8 MG/D5W 250 ML 250 ML IV PRN (15:30)
--- NOTE | 2020-05-01 15:30 | NUR ---
Patient placed in prone position per Dr Welch's order, tolerating well.
--- NOTE | 2020-05-01 16:20 | NUR ---
Dr Bo consulted per Dr Welch's orders, spoke with Vandana. Awaiting return call
[2020-05-01] MEDS ORDERED: POTASSIUM CHLORIDE 20MEQ/100ML 200 ML IV ONE (17:30)
[2020-05-01] MEDS ORDERED: POTASSIUM CHLORIDE 20MEQ/100ML 100 ML IV ONE (18:00)
--- NOTE | 2020-05-01 20:15 | NUR ---
Notified Dr. Welch of AB results. ordered to titrate FiO2 to 65% as pt tolerates. Zuhair PARK aware. Addendum: 05/02/20 at 0011 by Tanisha Ames RN VENOUS BLOOD GAS PERFORMED, AWARE
[2020-05-01] MEDS: MIDAZOLAM HCL 5MG/ML 10ML VIAL 100 ML IV PRN (20:24)
[2020-05-01] MEDS ORDERED: ATORVASTATIN 20 MG TAB PO SCH (21:00)
--- NOTE | 2020-05-01 21:54 | Consultation ---
DATE OF CONSULTATION: Initial Nephrology Consultation Report REASON FOR CONSULTATION: Elevated serum creatinine, acute kidney injury. HISTORY OF PRESENT ILLNESS: Ms. Rome Farfan is a 69-year-old lady with multiple medical problems among which are diabetes, hypertension. She presents to the hospital, she is here in the ICU. She is intubated. She is on a ventilator. She is on some pressors. I am not able to obtain a history, so the history is obtained from the patient's medical record and nursing staff and caregivers. The patient had some shortness of breath prior to coming into the hospital. She present to the emergency room. COVID test was done and COVID test was positive. As far as the patient's serum creatinine is 1.87 at this time. Apparently, it seems that when the patient presented the serum creatinine was about 1.54, then it went to 1.78 and now it is 1.87. Going back to 2016, there was a creatinine of 1.08, but then there was also another one later about 1.4, so it appears that she has been in and out of acute kidney injury in the past. The patient right now is not making much urine. PAST MEDICAL HISTORY: 1. The patient has a history of diabetes. 2. Hypertension. 3. Coronary artery disease. 4. Coronary artery stent placement. PAST SURGICAL HISTORY: She has had a knee replacement. REVIEW OF SYSTEMS: Really cannot be obtained. FAMILY HISTORY: Cannot be obtained. MEDICINES: As per MAR. PHYSICAL EXAMINATION: VITAL SIGNS: Blood pressure is 110/61, pulse is 66. The patient is on about 10 mcg of Levophed. The patient is intubated on a ventilator. She is in the prone position. CARDIOVASCULAR: Regular rate and rhythm. LUNGS: Decreased breath sounds. ABDOMEN: Decreased bowel sounds. EXTREMITIES: Trace edema of the ankles. LABORATORY RESULTS: White count 8, hemoglobin and hematocrit 11 and 38 respectively, platelet count 159,000. Sodium 143, potassium 3.1, chloride 107, bicarb 23, BUN and creatinine 20 and 1.8 respectively, glucose is 137, calcium is 7.1, AST 156, ALT 84, albumin is 2.8. Urinalysis shows protein in the urine, ketones positive, blood on the dipstick, greater than 50 red cells, 21-50 white cells, many bacteria, some granular casts. Chest x-ray shows extensive bilateral patchy consolidative airspace opacities. IMPRESSION: 1. Acute kidney injury. 2. Rule out urinary tract infection, urosepsis. 3. Coronavirus disease. 4. Possible multifocal pneumonia secondary to coronavirus disease. 5. Diabetes. 6. Hypertension. 7. History of coronary artery disease. 8. History of congestive heart failure. PLAN: At the present time, the patient is intubated on a ventilator. She is having some renal failure and it appears that she does have a component of ATN, which is causing the renal failure as demonstrated by the granular casts on her urinalysis. Her urinalysis is also showing red cells and white cells, which showed many bacteria, however, the leukocyte esterase and nitrite are both negative. However, urine culture will still be sent nonetheless. NSAIDs, EVANS-2 inhibitors, and IV contrast should be avoided. The main emphasis will be to keep the patient slightly negative fluid balance. She was given 40 mg of Lasix, she did not respond much to this. I will go ahead and give her 80 mg of Lasix IV x1 and also I gave her some Zaroxolyn about 30 minutes after that, we will see if she has a diuresis with this. I do not want to give her any IV fluids at this time since that will probably worsen her respiratory status. There is no need for renal replacement therapy at this time. I will follow the patient with you. Thank you, Dr. Espinoza, for allowing me to participate in the care of this patient with you. Ather MD LEONARDO Sánchez/MODL /[id number]
[2020-05-01] MEDS ORDERED: AZITHROMYCIN 500MG/NS 250 ML 250 ML IV SCH (22:00)
[2020-05-01] MEDS ORDERED: CEFTRIAXONE SOD 1 GM/NS 50 ML 50 ML IV SCH (22:00)
--- NOTE | 2020-05-01 22:09 | Consultation ---
DATE OF CONSULTATION: REASON FOR CONSULTATION: Sepsis, septic shock, pneumonia, bacteria, and COVID-19. HISTORY OF PRESENT ILLNESS: This patient, who is a 69-year-old female, who has history of congestive heart failure before, chronic kidney disease. The patient apparently had coronary artery disease, status post cardiac stent, osteoarthritis, total knee replacement, tubal ligation, hypertension, diabetes mellitus, . She has been sick for the last 3 to 4 days, became really short of breath. Family brought her to the emergency room. In the emergency room, she had to be intubated, started on vasopressor. She was admitted here urgently and she was seen by Dr. Ayush Welch. She is currently intubated. Discussed with Dr. Welch events since she came here, seems to be a little bit more stable now since been intubated and vent settings are being addressed. I also called the family and discussed with her daughter. Apparently, the family all were sick in the last week, diagnosed with COVID-19. PHYSICAL EXAMINATION: GENERAL: She is currently intubated and sedated. VITAL SIGNS: Stable, currently afebrile. Temperature , heart rate 62, respirations 32, and pulse oximetry 86. HEENT: Normocephalic. NECK: Supple. Oral intubation. CHEST: Few crackles. COR: S1 and S2. No S3, S4, or murmurs. ABDOMEN: Soft. LABORATORY DATA: White count 8.05, hemoglobin 11.9, and platelet 159. Her sodium 143, potassium 3.1 with a creatinine of 1.87. ALT of 156. IMPRESSION: 1. Multiorgan failure, respiratory failure. 2. COVID-19. 3. Vweae-sb-qtqugfz kidney disease. 4. Congestive heart failure. 5. Concern about hepatitis. 6. Superimposed bacterial pneumonia. RECOMMENDATIONS: Agree with Rocephin, azithromycin, and Lovenox. Agree with supportive care as ordered. She is not a candidate for remdesivir at the present point. She is in renal failure and elevated liver enzyme. Recheck CBC. Recheck chem panel. Discussed with the medical team. Prognosis is very poor. Agree with renal evaluation and cardiac evaluation. Discussed with family. Please refer to the orders. MD ELIZABETH Demarco/HARDIK /[id number]
[2020-05-01] MEDS ORDERED: AZITHROMYCIN 500MG/NS 250 ML 250 ML ONE (22:28)
[2020-05-01] MEDS ORDERED: CEFTRIAXONE SOD 1 GM/NS 50 ML 50 ML IV ONE (22:28)
[2020-05-02] VITALS (60 sets, daily range): BP systolic 87–125; BP diastolic 43–79
[2020-05-02] MEDS: FENTANYL 2000MCG/NS 250 250 ML IV PRN ×2 (02:03→14:11)
[2020-05-02] MEDS: MIDAZOLAM HCL 5MG/ML 10ML VIAL 100 ML IV PRN ×4 (02:03→20:24)
[2020-05-02] MEDS: ROCURONIUM BROMIDE 250 MG in SODIUM CHLORIDE 0.9% 250ML 225 ML IV PRN ×2 (03:52→07:30)
[2020-05-02] MEDS: NOREPINEPHRINE 8 MG/D5W 250 ML 250 ML IV PRN (06:11)
[2020-05-02 06:36] LABS: INR 1.31; PROTHROMBIN TIME 17.2 seconds (11.9-14.5)
[2020-05-02 06:47] LABS: ALBUMIN 2.2 g/dL (3.5-5.0); ALBUMIN/GLOBULIN RATIO 0.6 (0.8-2.0); ANION GAP 18.2 mmol/L (8-16); CREATININE, SERUM 1.61 mg/dL (0.57-1.11); POTASSIUM 4.2 mmol/L (3.5-5.1)
[2020-05-02 06:53] LABS: CALCIUM 6.8 mg/dL (8.4-10.2)
[2020-05-02 07:08] LABS: MAGNESIUM 1.4 MG/DL (1.3-2.1); PHOSPHORUS 4.7 MG/DL (2.3-4.7)
[2020-05-02 07:32] LABS: BASOPHILS # (AUTO) 0.1 (0.0-0.1); BASOPHILS % 0.5 % (0.0-1.0); LYMPHOCYTES # (AUTO) 0.6 (1.0-3.2); LYMPHOCYTES % 2.7 % (18.0-39.1); MEAN CORPUSCULAR HEMOGLOBIN 29.6 pg (28-32); MEAN CORPUSCULAR HGB CONC 31.4 g/dL (31-35); MEAN CORPUSCULAR VOLUME 94.1 fL (81-99); MONOCYTES # (AUTO) 0.5 (0.2-0.8); MONOCYTES % 2.3 % (4.4-11.3); NEUTROPHILS # (AUTO) 18.2 (2.1-6.9); NEUTROPHILS % 83.7 % (38.7-80.0); PLATELET COUNT 151 x10e3/uL (140-360); RED BLOOD COUNT 3.72 x10e6/uL (3.6-5.1); RED CELL DISTRIBUTION WIDTH 14.1 % (11.7-14.4)
--- NOTE | 2020-05-02 08:16 | Progress Note ---
DATE: SUBJECTIVE: The patient was placed in the prone position last night. She is now back in the supine position. She is on 65% oxygen. She is on a PRVC at a rate of 32 with the respiratory tidal volume of 380. Her PEEP is set at 10. Her Levophed is weaned down to 10 mcg. She remains sedated on Versed and fentanyl. She is also on low-dose rocuronium. PHYSICAL EXAMINATION: VITAL SIGNS: Blood pressure is 96/84 and the pulse is 72, saturation is 95%. HEENT: Shows no facial swelling. There is a right IJ line in good position. The site looks clean. There is an oral endotracheal tube. CARDIAC: Reveals a regular rate and rhythm with normal S1, S2. LUNGS: Auscultation of lungs reveals rhonchorous breath sounds bilaterally. There is no wheezing. ABDOMEN: Soft, nontender. There is no rebound or guarding. EXTREMITIES: Shows no leg edema or calf tenderness. There is no cyanosis or clubbing. SKIN: Shows no rashes. NEUROLOGIC: Shows the patient to be sedated. LABORATORY DATA: The BUN to creatinine ratio has improved to 25/1.61 and the sodium is 146. The carbon dioxide is 24. There is an increased anion gap of 18 and the glucose is 125. The total bilirubin is 1.3 and the AST is 115. The ALT is 86. The albumin is 2.2. RADIOGRAPHIC DATA: Shows bilateral pulmonary infiltrates. IMPRESSION: 1. Acute respiratory failure. 2. Viral pneumonia and coronavirus disease 2019 infection. 3. Iviaj-dw-pldjxuy systolic congestive heart failure. 4. Acute kidney injury. 5. Diabetes. 6. Hepatitis. 7. Gastroenteritis. 8. Anemia. PLAN: 1. Repeat ABG and continue current ventilation. Continue lung protective strategy. 2. Stop rocuronium, but continue Versed and fentanyl. 3. Continue insulin drip. 4. Continue current antibiotics. 5. Lovenox to prevent DVT prophylaxis. 6. Specialty bed. 7. Enteral feedings. 8. Case discussed with shift supervisor melting nursing, dayshift nursing, Respiratory, Infectious Disease, Nephrology, administration, and family. Greater than 35 minutes in direct critical care time apart from any procedures performed. Ayush Welch MD [facility]/HARDIK /[id number]
[2020-05-02] MEDS: ZINC SULFATE 220 MG CAP PO SCH (09:00)
[2020-05-02] MEDS: ASCORBIC ACID 500 MG TAB PO SCH ×2 (09:00→16:38)
[2020-05-02] MEDS: EYE LUBRICANT OPTH OINT 3.5GM TUBE OP SCH (09:05)
[2020-05-02] MEDS: PANTOPRAZOLE 40 MG 10ML VIAL IV SCH (09:05)
[2020-05-02] MEDS: ENOXAPARIN SOD INJ 40 MG/0.4 ML SYR SC SCH (09:06)
--- NOTE | 2020-05-02 09:53 | Diagnostic Imaging Report ---
EXAMINATION: CHEST SINGLE (PORTABLE) INDICATION: Respiratory failure COMPARISON: Chest radiograph of 05/01/2020 FINDINGS: LINES/TUBES:Support lines and tubes unchanged. LUNGS:The lungs are moderately inflated. Slight interval increase in bilateral multifocal interstitial and airspace opacities. PLEURA:No pleural effusion or pneumothorax. MEDIASTINUM:The cardiomediastinal silhouette appears unchanged in size and shape. BONES/SOFT TISSUES:No acute osseous injury. ABDOMEN:No free air under the diaphragm. IMPRESSION: Slight interval increase in bilateral multifocal airspace and interstitial opacities. Signed by: Graciela Henning MD on 05/02/2020 9:49 AM
[2020-05-02 11:38] LABS: BAND NEUTROPHILS % (MANUAL) 22 %; LYMPHOCYTES % (MANUAL) 1 % (19-48); METAMYELOCYTES % (MANUAL) 4 % (0-0); MONOCYTES % (MANUAL) 5 % (3.4-9.0); MYELOCYTES % (MANUAL) 1 % (0-0); NEUTROPHILS % (MANUAL) 67 % (40-74)
--- NOTE | 2020-05-02 11:42 | History and Physical ---
PRIMARY CARE PHYSICIAN: Dr. Callum Hernandes. CONSULTANTS: 1. Dr. Ayush Welch. 2. Dr. Nabil Manuel. 3. Dr. Lashay Sánchez. 4. Dr. Mariely Hugo. CHIEF COMPLAINT: Sepsis, respiratory failure, intubated. COVID-19 positive. HISTORY OF PRESENT ILLNESS: The patient is a 69-year-old female, who came in with septic shock, pneumonia, bacterial; COVID-19 rapid test positive. The patient is a 69-year-old female with multiple medical problems including congestive heart failure with chronic kidney disease. The patient has also had coronary artery disease with previous stenting. She has multiple surgical intervention including total knee replacement, tubal ligation. The patient had shortness of breath for the past three-four days. The patient was brought to the emergency room. The patient is subsequently intubated. The patient is on pressor support. The patient is admitted to the ICU for ventilator support and treatment. PAST MEDICAL HISTORY: As above. PAST SURGICAL HISTORY: As above. SOCIAL HISTORY: The patient does not smoke or use alcohol. No regular drug. ALLERGIES: LOSARTAN, SPIRONOLACTONE, SULFA. HOME MEDICATION: Not available. PHYSICAL EXAMINATION: VITAL SIGNS: Temperature was 101, blood pressure 102/58, pulse rate 84, respiration 22. GENERAL: The patient is on ventilator support. HEENT: Normocephalic and atraumatic. Anicteric. NECK: Supple grossly. PULMONARY: Diminished breath sounds significantly with coarses. CARDIOVASCULAR: Regular rate and rhythm, tachycardia. ABDOMEN: Soft, obese. EXTREMITIES: No cyanosis or edema. NEUROLOGIC: The patient is sedated on vent support. LABORATORY DATA: WBC 7.5, hemoglobin 11.8, hematocrit 39, platelets 143. Chemistry; sodium is 132, potassium 4.6, chloride 99, bicarb 21, BUN is 15, creatinine 1.6, glucose is 257. Lactic acid was 5.0. Chest x-ray, extensive airspace disease. CT scan follow up with that showed that the patient had extensive ground-glass and consolidation opacities scattered throughout the lungs, severe multilobar pneumonia. Triple vessel coronary artery atherosclerosis. IMPRESSION: 1. Sepsis with shock. 2. Respiratory failure. 3. COVID-19 positive. 4. Ventilated mechanical ventilator support. 5. Multiorgan failure. 6. Multiple baseline problems. PLAN: The patient is in the ICU. Dr. Ayush Welch is the critical care physician. Continue with order by Dr. Ayush Welch. Continue with ventilator support. Supportive medication. Antibiotics. The patient did receive dexamethasone in the emergency room. Leukocytosis will increase. Continue with current management. MD VIRAJ Phipps/MODL /[id number]
[2020-05-02 11:50] LABS: PLATELET ESTIMATE ADEQUATE; PLATELET MORPHOLOGY COMMENT NORMAL; RBC MORPHOLOGY COMMENT NORMAL
--- NOTE | 2020-05-02 12:23 | Diagnostic Imaging Report ---
EXAMINATION: CHEST SINGLE (PORTABLE) INDICATION: NG tube placement COMPARISON: Chest radiograph of 05/02/2020 FINDINGS: LINES/TUBES:Interval placement of nasogastric tube which is coiled in the upper esophagus. Endotracheal tube and right IJ central venous catheter unchanged. LUNGS:The lungs are moderately inflated. Unchanged bilateral focal patchy airspace opacities. PLEURA:No pleural effusion or pneumothorax. MEDIASTINUM:The cardiomediastinal silhouette appears unchanged in size and shape. BONES/SOFT TISSUES:No acute osseous injury. ABDOMEN:No free air under the diaphragm. IMPRESSION: NG tube is coiled in the upper esophagus. Recommend repositioning followed by repeat radiograph. Otherwise, no significant interval change. Signed by: Graciela Henning MD on 05/02/2020 12:20 PM
--- NOTE | 2020-05-02 14:00 | NUR ---
NG tube insertion attempted X 2, Dr Welch made aware, per MD "We can attempt again tomorrow."
[2020-05-02] MEDS: FUROSEMIDE INJ 100 MG in SODIUM CHLORIDE 0.9% 100 ML 90 ML IV SCH (14:11)
--- NOTE | 2020-05-02 16:04 | NUR ---
Patient placed in prone position at this time per Dr Welch's order, patient tolerating well at this time.
[2020-05-02] MEDS ORDERED: BALSAM PERU/CASTOR OIL 60 GM OINT...G. TP PRN (16:15)
--- NOTE | 2020-05-02 19:36 | Diagnostic Imaging Report ---
EXAM: Abdomen Radiograph INDICATION: ^[id number] ^[id number] ^NG TUBE PLACEMENT COMPARISON: None FINDINGS: TUBES and LINES: Suboptimal position for evaluation of NG tube. No definite NG tube seen. There is a temperature probe. LOWER CHEST: No abnormalities in the lower chest. ABDOMEN: The bowel loops are unremarkable with no dilatation or signs of obstruction. No pneumoperitoneum. No abnormal abdominal calcifications. BONES AND SOFT TISSUES: No acute osseous lesion. Soft tissues are unremarkable. IMPRESSION: No acute abdominal radiographic abnormality. Signed by: Mariusz So MD on 05/02/2020 7:33 PM
--- NOTE | 2020-05-02 21:03 | Progress Note ---
DATE: SUBJECTIVE: Ms. Peter remains in intensive care unit and intubated. She seems to be little bit more better. She is on 65% oxygen with the rate of 32 and PEEP of 10. Her Levophed was reduced to 10 mcg. PHYSICAL EXAMINATION: GENERAL: She is currently intubated, sedated. VITAL SIGNS: Stable, afebrile. HEENT: She is not icteric. NECK: Supple. CHEST: Crackles, bilateral coarse. COR: S1, S2. No murmur. ABDOMEN: Soft. IMPRESSION: 1. Sepsis on admission, multiorgan failure seems to be getting better. Her white count is 21.78, but she received Decadron yesterday in the emergency room. Platelet 151. 2. Coronavirus disease-19 as mentioned. 3. Leukocytosis, probably reactive. 4. Upper respiratory failure. 5. We will recheck CBC. Recheck Chem panel. Continue with the Lovenox, azithromycin, Rocephin. Supportive care as ordered. We will follow. MD ELIZABETH Demarco/MODL /[id number]
--- NOTE | 2020-05-02 21:29 | Consultation ---
DATE OF CONSULTATION: 05/02/2020 Cardiology Consultation REQUESTING PHYSICIAN: Diego Espinoza MD. REASON FOR CONSULTATION: Heart failure. HISTORY OF PRESENT ILLNESS: This is a 69-year-old woman with history of chronic systolic heart failure, coronary disease status post LAD and circumflex stents, diabetes mellitus, hypertension, and hyperlipidemia, who presented with complaints of altered mental status and hypoxia. She was reported to have had seizure-like activity with subsequent unresponsiveness. On the patient arrival to the ER, she was hypoxic with oxygen saturation of 86%. The patient was subsequently intubated in the ER for acute hypoxic respiratory failure. She was treated with IV antibiotics and bolused fluids and given NS for fluid resuscitation for sepsis. After family arrived, she was reported to have had shortness of breath, cough, and fever with positive COVID test at an outside facility. This was confirmed on testing at [facility]. She was subsequently admitted to the ICU for further care. Cardiology is consulted for management of congestive heart failure. No history could be obtained from the patient due to her intubation and sedation. REVIEW OF SYSTEMS: Unable to obtain secondary to intubation and sedation. PAST MEDICAL HISTORY: As above. PAST SURGICAL HISTORY: 1. Knee replacement. 2. Tubal ligation. ALLERGIES: PLEASE SEE EMR. MEDICATIONS: Please see medication list. SOCIAL HISTORY: Unable to obtain. FAMILY HISTORY: Noncontributory to current illness. PHYSICAL EXAMINATION: VITAL SIGNS: Temperature 97.7 degrees, pulse 74, respiratory rate 30, blood pressure 114/79, oxygen saturation 91% on mechanical ventilation. The patient was not examined due to isolation for COVID-19. LABORATORY DATA: Sodium 146, potassium 4.2, chloride 108, CO2 24, BUN 25, and creatinine 1.61. CK 480, CK-MB 6.1, troponin 0.271. WBC 21.78, hemoglobin 11, hematocrit 35, platelets 151. Chest x-ray, NG tube is coiled in the upper esophagus. Otherwise, no significant interval change. EKG, sinus rhythm with premature atrial complexes with aberrant conduction. IMPRESSION: 1. Acute hypoxic respiratory failure. 2. Coronavirus disease-2019 viral pneumonia. 3. Acute kidney injury. 4. Elevated CK. 5. Elevated BNP. 6. Chronic systolic heart failure. 7. Coronary artery disease with prior left anterior descending and circumflex stents. 8. Diabetes mellitus. 9. Hypertension. 10. Hyperlipidemia. RECOMMENDATIONS: Although CKs were elevated, she only had a mild troponin elevation, which has now resolved. I suspect this is demand ischemia in the setting of acute hypoxic respiratory failure and sepsis secondary to COVID-19 pneumonia. Recommend medical therapy with aspirin and statin. No beta-blockade can be used at this time due to pressor requirement. Continue supportive care with Levophed. Given her known systolic heart failure and rising BNP, I agree with IV Lasix for diuresis. Monitor volume status closely. Management of COVID-19 per Infectious Disease. I agree with anticoagulation. Ventilator management per Pulmonary. The patient's prognosis is poor, can consider further ischemic evaluation once the patient improves from her acute illness. Thank you for this consult. We will continue to follow. Khloe Hayward MD ABS/MODL /[id number] MTDD
[2020-05-02] MEDS ORDERED: AZITHROMYCIN 500MG/NS 250 ML 250 ML IV SCH (22:00)
[2020-05-02] MEDS ORDERED: CEFTRIAXONE SOD 1 GM/NS 50 ML 50 ML IV SCH (23:00)
[2020-05-02 23:43] LABS: ABG PCO2 53 mmHg (35-45); ABG PH 7.32 (7.35-7.45); ABG PO2 48 mmHg (80-105)
[2020-05-02 23:44] LABS: ABG HCO3 27 mmol/L (22-26)
[2020-05-03] VITALS (24 sets, daily range): BP systolic 94–148; BP diastolic 49–72
[2020-05-03] MEDS: NOREPINEPHRINE 8 MG/D5W 250 ML 250 ML IV PRN (00:30)
[2020-05-03] MEDS: FENTANYL 2000MCG/NS 250 250 ML IV PRN ×2 (02:00→17:54)
[2020-05-03] MEDS: MIDAZOLAM HCL 5MG/ML 10ML VIAL 100 ML IV PRN ×2 (02:44→11:00)
[2020-05-03] MEDS ORDERED: FUROSEMIDE INJ 10 MG/ML 10 ML VIAL ONE (06:23)
[2020-05-03] MEDS ORDERED: SODIUM CHLORIDE 0.9% 100 ML ONE (06:24)
[2020-05-03] MEDS: FUROSEMIDE INJ 100 MG in SODIUM CHLORIDE 0.9% 100 ML 90 ML IV SCH (06:25)
[2020-05-03 07:02] LABS: BASOPHILS # (AUTO) 0.1 (0.0-0.1); BASOPHILS % 0.5 % (0.0-1.0); HEMATOCRIT 34.2 % (34.2-44.1); HEMOGLOBIN 10.9 g/dL (12.0-16.0); LYMPHOCYTES # (AUTO) 0.6 (1.0-3.2); LYMPHOCYTES % 2.3 % (18.0-39.1); MEAN CORPUSCULAR HEMOGLOBIN 29.9 pg (28-32); MEAN CORPUSCULAR HGB CONC 31.9 g/dL (31-35); MONOCYTES # (AUTO) 0.4 (0.2-0.8); MONOCYTES % 1.6 % (4.4-11.3); NEUTROPHILS # (AUTO) 22.8 (2.1-6.9); NEUTROPHILS % 88.9 % (38.7-80.0); PLATELET COUNT 192 x10e3/uL (140-360); RED BLOOD COUNT 3.64 x10e6/uL (3.6-5.1); RED CELL DISTRIBUTION WIDTH 14.2 % (11.7-14.4)
[2020-05-03 07:22] LABS: ALBUMIN 2.1 g/dL (3.5-5.0); ALBUMIN/GLOBULIN RATIO 0.6 (0.8-2.0); ANION GAP 14.9 mmol/L (8-16); CALCIUM 7.2 mg/dL (8.4-10.2); CREATININE, SERUM 1.6 mg/dL (0.57-1.11); POTASSIUM 3.9 mmol/L (3.5-5.1)
[2020-05-03 08:27] LABS: ABG HCO3 27 mmol/L (22-26); ABG PCO2 44 mmHg (35-45); ABG PO2 65 mmHg (80-105)
--- NOTE | 2020-05-03 08:44 | Diagnostic Imaging Report ---
EXAM: CHEST SINGLE (PORTABLE) DATE: 05/03/2020 8:20 AM INDICATION: Respiratory failure COMPARISON: 05/02/2020 FINDINGS: Endotracheal tube terminates approximately 4.4 cm above the eliseo. Right IJ central venous catheter again terminates over the SVC. Enteric tube is no longer visualized. Again identified are grossly stable appearing bilateral patchy airspace opacities. There is no evidence for pneumothorax or significant volume pleural effusion. The cardiomediastinal silhouette is stable in appearance. No acute osseous abnormalities identified. IMPRESSION: No significant interval change from 05/02/2020. Grossly stable appearing bilateral multifocal airspace opacities again identified. Signed by: Dr. Antonio Lees MD on 05/03/2020 8:41 AM
[2020-05-03] MEDS: ASCORBIC ACID 500 MG TAB PO SCH ×2 (09:00→17:00)
[2020-05-03] MEDS: ZINC SULFATE 220 MG CAP PO SCH (09:00)
[2020-05-03] MEDS ORDERED: ASPIRIN 81 MG ENTERIC COATED PO SCH (09:00)
[2020-05-03] MEDS: EYE LUBRICANT OPTH OINT 3.5GM TUBE OP SCH (09:00)
[2020-05-03] MEDS: PANTOPRAZOLE 40 MG 10ML VIAL IV SCH (09:07)
[2020-05-03] MEDS: ENOXAPARIN SOD INJ 40 MG/0.4 ML SYR SC SCH ×2 (09:08→20:52)
--- NOTE | 2020-05-03 09:11 | Progress Note ---
DATE: Pulmonary Critical Care Progress Note SUBJECTIVE: The patient was placed in the prone position last night. She is now back in the supine position. She is on a PRVC at a rate of 30 with a tidal volume of 380. Her PEEP is set at 10 and her FiO2 is set at 55%. Her oxygen saturation is 91%. Her Levophed has been decreased to 5 mcg. She is on Versed at 5 mg as well as fentanyl. The patient was seen by Cardiology yesterday. PHYSICAL EXAMINATION: VITAL SIGNS: The blood pressure is 118/61, saturation is 93%, and the respiratory rate is 30. She is on a PRVC. The Levophed is at 5. She has an oral endotracheal tube. She has a right IJ line. The site looks clean. There is no drainage. CARDIAC: Reveals regular rate and rhythm with normal S1 and S2. LUNGS: Auscultation of lungs reveals crackles at the bases. There is no wheezing. ABDOMEN: Soft and nontender. There is no rebound or guarding. EXTREMITIES: Shows no leg edema or calf tenderness. There is no cyanosis or clubbing. SKIN: Shows no rashes. NEUROLOGICAL: Shows no focal abnormalities. The patient is sedated. LABORATORY DATA: White blood cell count is increased to 25.6 and the hemoglobin is 10.9. The platelet count is 192. The BUN to creatinine ratio is 37 to 1.6, and the other electrolytes are within normal limits. The total bilirubin is 2.3 and the albumin is 2.1. RADIOGRAPHIC DATA: Chest x-ray shows bilateral infiltrates. IMPRESSION: 1. Acute respiratory failure. 2. Viral pneumonia and COVID-19 infection. 3. Chronic systolic congestive heart failure. 4. Acute kidney injury. 5. Diabetes. 6. Elevated liver enzymes. 7. Viral gastroenteritis. 8. Anemia, unspecified. PLAN: 1. Switch antibiotics to Zyvox and Merrem today to cover for any superimposed bacterial infection. 2. Repeat ABG and continue to adjust ventilator as tolerated. 3. Begin tube feedings. 4. Specialty bed to prevent decubitus ulcers. 5. Lovenox at half a mg subcu twice daily. 6. Continue to monitor creatinine. 7. Continue to wean Levophed. 8. Case discussed with nightshift nursing, dayshift nursing, Respiratory, Infectious Disease, Nephrology, and family. Greater than 35 minutes in direct critical care time. MD NIRANJAN Artis/HARDIK /[id number]
[2020-05-03] MEDS: LINEZOLID 600 MG/D5W 300ML 300 ML IV SCH ×2 (10:00→20:52)
[2020-05-03] MEDS: MEROPENEM 1GM 100 ML IV SCH ×2 (10:50→19:04)
--- NOTE | 2020-05-03 11:15 | Diagnostic Imaging Report ---
EXAM: ABDOMEN-1VIEW (KUB) DATE: 05/03/2020 10:52 AM INDICATION: Dobbhoff placement COMPARISON: None FINDINGS/IMPRESSION: Enteric tube identified coursing below the diaphragm with distal tip terminating over the mid abdomen in the expected region of the pylorus. Bowel gas pattern appears nonobstructive. No abnormal intra-abdominal calcification is identified. No acute osseous abnormality is identified. Signed by: Dr. Antonio Lees MD on 05/03/2020 11:12 AM
[2020-05-03 11:23] LABS: LYMPHOCYTES % (MANUAL) 5 % (19-48); MONOCYTES % (MANUAL) 1 % (3.4-9.0); NEUTROPHILS % (MANUAL) 94 % (40-74); PLATELET ESTIMATE ADEQUATE; PLATELET MORPHOLOGY COMMENT NORMAL; RBC MORPHOLOGY COMMENT NORMAL
--- NOTE | 2020-05-03 12:36 | NUR ---
WOUND CARE CONSULT FOR 69 YO FEMALE HX OF covid 19,RESP FAIL ,SEPTIC MOISES 10 ON STRICT PUP STATUS AND INTERVENTIONS AND ALTERNATING PRESSURE MATTRESS LABS: WBC-25.67 HGB_10.9 GLUCOSE-PEND [id number] SKIN ASSESSMENT COMPLETE PATIENT PRESENTS WITH PARTIAL THICKNESS WOUND LEFT SIDE OF NECK [id number] SACRUM STAGE 2 ULCERATION 16CM X2CM X0.1CM RECOMMENDATIONS: NURSING TO CONTINUE TO MAINTAIN STRICT PUP STATUS AND INTERVENTIONS AND ALTERNATING PRESSURE MATTRESS NURSING TO CONTINUE TO ASSIST PATIENT OUT OF BED FOR MEALS AND MUCH TOLERATED NURSING TO CONTINUE TO ASSIST PATIENT NEEDED WITH MEALS AND NUTRITIONAL SUPPLEMENTS TO ENSURE PROPER REQUIREMENTS FOR HEALING NURSING TO CONTINUE TO OFFLOAD FEET AND HEELS NEEDED WITH PILLOW SUSPENSION WHEN IN BED NURSING TO CLEAN PARTIAL THICKNESS WOUND LEFT SIDE OF NECK WITH NORMAL SALINE DAILY AND APPLY BACTROBAN OINTMENT AND LEAVE OPEN TO AIR NURSING TO CLEAN SACRAL STAGE 2 ULCERATION WITH NORMAL SALINE DAILY AND APPLY VENELEX OINTMENT AND ALLEVYN FOAM DRESSING Addendum: 05/03/20 at 1247 by Kenny Bill RN Amended: Links added.
[2020-05-03] MEDS ORDERED: SODIUM CHLORIDE 0.9% 1000ML 1,000 ML ONE (13:35)
--- NOTE | 2020-05-03 14:22 | NUR ---
Nutrition Intervention Note RD Recommendation(s) for Physician: - Recommend TF of Vital AF at 10 ml/hr, as hemodynamically stable advance TF as tolerated to goal rate of 45 ml/hr (to provide 1296 kcal and 81 gm protein) - Water flushes per MD Plan of Care: RD following, TF rec's, monitoring for tolerance and adequacy Nutrition reason for involvement: Vent, EN RD Assessment 05/03: 69 YOF admitted for respiratory failure, septic shock, and covid-19. Pt evaluated today per intubation and pending TF. Pt remains intubated and sedated with 1 low dose pressor. Pt required proning yesterday. TF pending initiation. Pt appears well nourished. Chart reviewed. TF rec's provided. Will continue to monitor. Principal Problems/Diagnoses: covid-19, respiratory failure, septic shock PMH: CHF, CKD, CAD, DM GI: LBM 05/03- liquid stool Skin: sacrum stage II PU Labs: 05/03: Na 148, K 3.9, BUN 37, Cr 1.6, Gluc 147, POC Gluc 91-117 Meds: zinc sulfate, vitamin C, protonix, abx IVF/Drips: Levophed at 3 mcg/min, furosemide drip, fentanyl drip Ht: 62 in Wt: 226 lb BMI: 41.3 kg/m2 IBW: 110 lb Malnutrition Evaluation (05/03/20) The patient does not meet criteria for a specified degree of malnutrition at this time. Will re-evaluate at follow-up as appropriate. Unable to assess per current isolation precautions Nutrition Prescription (Diet Order): Vital AF at 20 ml/hr- pending initiation Estimated Nutritional Needs: [id number] calories/day (22-25 kcal/kg IBW) 75-100 g protein/day (1.5-2 g pro/kg IBW) Diet Adequacy: Not meeting calorie needs, Not meeting protein needs Diet Tolerance: pending Diet Education Needs Assessment: Diet education not indicated, pt intubated. Nutrition Care Level: moderate Nutrition Diagnosis: Inadequate energy and protein intake related to intubation as evidenced by requiring EN on vent Goal: Patient will meet 75-100% of estimated needs by follow up Progress: N/A Interventions: - Composition, Rate, Route, IVF, Prescription medications, Recommended Modifications Monitoring/Evaluation: - Total energy intake, Total protein intake, Formula/Solution, IVF, Prescription medication Signed: Yu Wells RD, LD, CNSC
[2020-05-03] MEDS ORDERED: CALCIUM GLUCONATE 10% INJ 4.65 MEQ in SODIUM CHLORIDE 0.9% 50ML 50 ML IV ONE (16:15)
[2020-05-03] MEDS: BALSAM PERU/CASTOR OIL 60 GM OINT...G. TP SCH (16:19)
[2020-05-03] MEDS: MUPIROCIN 2% OINT 22 GM TUBE TOP SCH (16:19)
--- NOTE | 2020-05-03 18:01 | Diagnostic Imaging Report ---
EXAM: CHEST SINGLE (PORTABLE) DATE: 05/03/2020 5:32 PM INDICATION: Respiratory failure COMPARISON: 05/03/2020 at 8:26 AM FINDINGS: Endotracheal tube terminates approximately 3.8 cm above the eliseo. Right IJ central venous catheter again terminates over the SVC. Enteric tube is no longer visualized. Bilateral patchy airspace opacities are unchanged. Bibasilar opacities have a slightly worsened, likely due to combination of atelectasis and effusion.. The cardiomediastinal silhouette is stable in appearance. No acute osseous abnormalities identified. IMPRESSION: 1. Slightly worsened bibasilar opacities, likely due to combination of atelectasis and effusion. 2. Stable bilateral patchy airspace opacities are likely due to multifocal pneumonia. Signed by: Mariusz So MD on 05/03/2020 5:57 PM
--- NOTE | 2020-05-03 19:12 | Progress Note ---
DATE: 05/03/2020 Cardiology Progress Note SUBJECTIVE: Patient discussed with nursing staff. The patient remains intubated and sedated, remains on Levophed. OBJECTIVE: VITAL SIGNS: Temperature 97.3 degrees, pulse 64, respiratory rate 30, blood pressure 118/61, oxygen saturation 93% on mechanical ventilation. Patient was not examined due to isolation for COVID-19. CARDIAC MEDICATIONS: 1. Enoxaparin 40 mg subcu q.12 hours. 2. Furosemide drip. 3. Levophed drip. 4. Aspirin 81 mg p.o. daily. LABORATORY DATA: WBC 25.67, hemoglobin 10.9, hematocrit 34.2, platelets 192. Sodium 148, potassium 3.9, chloride 109, CO2 of 28, BUN 37, and creatinine 1.6. TELEMETRY: Personally reviewed and interpreted, revealing normal sinus rhythm. IMPRESSION: 1. Acute hypoxic respiratory failure. 2. COVID- 19 viral pneumonia. 3. Acute kidney injury. 4. Elevated CK and troponin. 5. Elevated BNP. 6. Chronic systolic heart failure. 7. Coronary disease with prior LAD and circumflex stents. 8. Diabetes mellitus. 9. Hypertension. 10. Hyperlipidemia. RECOMMEND: Suspect troponin elevation secondary to demand ischemia in the setting of acute hypoxic respiratory failure and sepsis secondary to COVID-19 pneumonia. Medical therapy with aspirin and statin. No beta blockade at this time due to pressor requirement. Continue Levophed. Continue IV diuretics. She has had adequate urine output. Monitor volume status closely. Replete electrolytes. Monitor creatinine. Continue anticoagulation. Ventilator management per Pulmonary. The patient's prognosis is poor. Further ischemic evaluation can be considered if the patient improves from her current illness. Thank you for this consult. We will continue to follow. Khloe Hayward MD ABS/MODL /[id number] MTDD
--- NOTE | 2020-05-03 20:28 | Progress Note ---
DATE: SUBJECTIVE: Ms. Peter is still in the hospital day #3 on the ventilator. The patient who is on PEEP of 10, FiO2 of 55%, O2 saturation 91%. Levophed was able to be reduced to 5. PHYSICAL EXAMINATION: GENERAL: The patient is intubated and sedated. VITAL SIGNS: Blood pressure 118/61, O2 saturation 93%, respiratory rate of 30. HEENT: She is not icteric. CHEST: Few crackles. HEART: S1, S2. No murmur. ABDOMEN: Soft. IMPRESSION: Acute respiratory failure, pneumonia, COVID-19, acute kidney injury, diabetes mellitus, liver injury, hepatitis, viral gastroenteritis, and anemia. LABORATORY DATA: Reviewed. White count today went up to 25, hemoglobin 10,. Sodium 148, creatinine 1.60. Concerned about aspiration pneumonia. We will change to her to meropenem and Zyvox. Continue with supportive care. Recheck CBC. We will start her on steroid. Continue with Lovenox. MD ELIZABETH Demarco/MODL /[id number]
[2020-05-03] MEDS: DEXAMETHASONE SOD PHOS 10 MG/1 ML VIAL IV SCH (20:52)
[2020-05-03] MEDS ORDERED: ROCURONIUM BROMIDE 250 MG in SODIUM CHLORIDE 0.9% 250ML 225 ML IV SCH (21:00)
[2020-05-03 22:17] LABS: ABG PCO2 46 mmHg (35-45); ABG PH 7.46 (7.35-7.45); ABG PO2 64 mmHg (80-105)
[2020-05-03 22:18] LABS: ABG HCO3 33 mmol/L (22-26)
[2020-05-04] VITALS (24 sets, daily range): BP systolic 84–195; BP diastolic 36–91
--- NOTE | 2020-05-04 00:04 | NUR ---
PLACED IN PRONE POSITION
[2020-05-04] MEDS: FUROSEMIDE INJ 100 MG in SODIUM CHLORIDE 0.9% 100 ML 90 ML IV SCH (01:18)
[2020-05-04] MEDS: ACETAMINOPHEN 325 MG/10 ML UDC NG PRN (01:18)
[2020-05-04] MEDS: MEROPENEM 1GM 100 ML IV SCH ×3 (02:03→17:59)
[2020-05-04] MEDS: FENTANYL 2000MCG/NS 250 250 ML IV PRN ×2 (03:41→16:00)
[2020-05-04 05:22] LABS: BASOPHILS # (AUTO) 0.1 (0.0-0.1); BASOPHILS % 0.6 % (0.0-1.0); EOSINOPHILS % 0.1 % (0.0-6.0); HEMATOCRIT 33.1 % (34.2-44.1); HEMOGLOBIN 10.5 g/dL (12.0-16.0); LYMPHOCYTES # (AUTO) 0.6 (1.0-3.2); MEAN CORPUSCULAR HEMOGLOBIN 30.1 pg (28-32); MEAN CORPUSCULAR HGB CONC 31.7 g/dL (31-35); MEAN CORPUSCULAR VOLUME 94.8 fL (81-99); MONOCYTES # (AUTO) 0.2 (0.2-0.8); MONOCYTES % 1.3 % (4.4-11.3); NEUTROPHILS % 94.3 % (38.7-80.0); PLATELET COUNT 182 x10e3/uL (140-360); RED BLOOD COUNT 3.49 x10e6/uL (3.6-5.1); RED CELL DISTRIBUTION WIDTH 14.1 % (11.7-14.4)
[2020-05-04 06:03] LABS: ALBUMIN 1.9 g/dL (3.5-5.0); ALBUMIN/GLOBULIN RATIO 0.5 (0.8-2.0); ANION GAP 17.6 mmol/L (8-16); CALCIUM 7.9 mg/dL (8.4-10.2); CREATININE, SERUM 1.39 mg/dL (0.57-1.11); MAGNESIUM 1.7 MG/DL (1.3-2.1); POTASSIUM 3.6 mmol/L (3.5-5.1)
[2020-05-04 06:43] LABS: INR 1.05; PROTHROMBIN TIME 14.4 seconds (11.9-14.5)
[2020-05-04 07:53] LABS: ABG HCO3 32 mmol/L (22-26); ABG PCO2 44 mmHg (35-45); ABG PH 7.47 (7.35-7.45); ABG PO2 83 mmHg (80-105)
[2020-05-04] MEDS: BALSAM PERU/CASTOR OIL 60 GM OINT...G. TP SCH (08:00)
[2020-05-04] MEDS: ASPIRIN 81 MG CHEW TAB PO SCH (08:00)
[2020-05-04] MEDS: PANTOPRAZOLE 40 MG 10ML VIAL IV SCH (08:00)
[2020-05-04] MEDS: DEXAMETHASONE SOD PHOS 10 MG/1 ML VIAL IV SCH (08:00)
[2020-05-04] MEDS: ENOXAPARIN SOD INJ 40 MG/0.4 ML SYR SC SCH ×2 (08:00→20:31)
[2020-05-04] MEDS: LINEZOLID 600 MG/D5W 300ML 300 ML IV SCH ×2 (08:00→20:31)
[2020-05-04] MEDS ORDERED: POTASSIUM PHOSPHATE 15 MM in SODIUM CHLORIDE 0.9% 250ML 250 ML IV ONE (08:50)
[2020-05-04] MEDS: ZINC SULFATE 220 MG CAP PO SCH (09:00)
[2020-05-04] MEDS: ASCORBIC ACID 500 MG TAB PO SCH ×2 (09:00→17:00)
[2020-05-04 09:20] LABS: LYMPHOCYTES % (MANUAL) 5 % (19-48); MONOCYTES % (MANUAL) 2 % (3.4-9.0); NEUTROPHILS % (MANUAL) 93 % (40-74); PLATELET ESTIMATE ADEQUATE; PLATELET MORPHOLOGY COMMENT NORMAL; RBC MORPHOLOGY COMMENT NORMAL
[2020-05-04] MEDS ORDERED: ATROPINE SULFATE INJ 0.4 MG/ML VIAL IV PRN (10:45)
--- NOTE | 2020-05-04 12:28 | Progress Note ---
DATE: SUBJECTIVE: Ms. Peter remains in the intensive care unit, intubated. OBJECTIVE: VITAL SIGNS: The patient's temperature 98.3, heart rate 89, respiratory rate is 30, blood pressure 114/54, on the ventilator with FiO2 of 70. Physical examination is unchanged. HEENT: Normocephalic. CHEST: Crackles. COR: S1, S2. ABDOMEN: Soft. LABORATORY DATA: Her white count is down to 19.66, hemoglobin of 10. Cultures; there is no growth. MEDICATIONS: She is currently on meropenem, furosemide, dexamethasone, and linezolid. IMPRESSION AND PLAN: 1. Coronavirus disease-19 respiratory failure and superimposed bacterial pneumonia. Continue as above. 2. Renal failure. Seems to be improving slowly. Continue to wean as ordered. MD ELIZABETH Demarco/MODL /[id number]
[2020-05-04] MEDS ORDERED: MAGNESIUM SULFATE 2GM/50ML 50 ML IV ONE (14:30)
[2020-05-04] MEDS: MUPIROCIN 2% OINT 22 GM TUBE TOP SCH (15:00)
--- NOTE | 2020-05-04 15:14 | Progress Note ---
DATE: Pulmonary Critical Care Progress Note SUBJECTIVE: The patient has been in the prone position overnight. She is now being switched back to supine position. She remains on a PRVC mode of ventilation at a rate of 28 with a tidal volume of 380. Her FiO2 is set at 65%. Her PEEP is set at 10. She is off pressors at this time. She remains on Versed at 6 mg as well as fentanyl at 150 mcg. PHYSICAL EXAMINATION: VITAL SIGNS: The patient is afebrile. The blood pressure is 126/58 and the saturation is 97%. She is afebrile. HEENT: No facial swelling or erythema. CARDIAC: Regular rate and rhythm with normal S1, S2. LUNGS: Auscultation of lungs reveals rhonchorous breath sounds bilaterally. There is no wheezing. ABDOMEN: Soft, nontender. There is no rebound or guarding. EXTREMITIES: No leg edema or calf tenderness. There is no cyanosis or clubbing. SKIN: No rashes. NEUROLOGICAL: The patient to be sedated. LABORATORY DATA: BUN to creatinine ratio is improved to 42/1.39. The other electrolytes are within normal limits. Albumin is 1.9. The white blood cell count is 19, and hemoglobin is 10.5. The platelet count is 182. IMPRESSION: 1. Acute respiratory failure. 2. Coronavirus disease-19 and viral pneumonia. 3. Chronic systolic congestive heart failure. 4. Acute kidney injury. 5. Superimposed bacterial pneumonia. 6. Diabetes. 7. Anemia, unspecified. PLAN: 1. Continue current antibiotics. 2. Continue current ventilator settings with a lung protective strategy. 3. Enteral feedings. 4. Insulin as needed. 5. Lovenox twice daily. 6. Continue to monitor creatinine. 7. Sedation as needed. 8. Case discussed with nightshift nursing, dayshift nursing, Respiratory, and Infectious Disease. Case also discussed with Nephrology and family. Greater than 35 minutes in direct critical care time. Ayush Welch MD [facility]/MODL /[id number]
[2020-05-04] MEDS: EYE LUBRICANT OPTH OINT 3.5GM TUBE OP SCH (16:00)
--- NOTE | 2020-05-04 16:20 | Progress Note ---
DATE: 05/04/2020 Cardiology Progress Note SUBJECTIVE: The patient is intubated and sedated. She is being ventilated in a prone position. Patient discussed with nursing staff. OBJECTIVE: VITAL SIGNS: Temperature 96.5 degrees, pulse 51, respiratory rate 28, blood pressure 126/58, and oxygen saturation 97% on mechanical ventilation. The patient was not examined due to isolation for COVID-19. CARDIAC MEDICATIONS: 1. Aspirin 81 mg p.o. daily. 2. Furosemide 5 mg an hour. LABORATORY DATA: WBC 19.06, hemoglobin 10.5, hematocrit 33.3, and platelets 182. Sodium 148, potassium 3.6, chloride 103, CO2 of 42, and creatinine 1.39. TELEMETRY: Personally reviewed and interpreted, revealing sinus bradycardia. IMPRESSION: 1. Acute hypoxic respiratory failure. 2. Coronavirus disease-19 viral pneumonia, on mechanical ventilation. 3. Acute kidney injury, improving. 4. Elevated CK and troponin. 5. Elevated BNP. 6. Chronic systolic heart. 7. Coronary artery disease, prior LAD and circumflex stents. 8. Diabetes mellitus. 9. Hypertension. 10. Hyperlipidemia. RECOMMENDATIONS: Suspect troponin elevation is due to demand ischemia in the setting of acute hypoxic respiratory failure and sepsis secondary to COVID-19 pneumonia. Continue medical therapy with aspirin and statin. No beta blockade at this time due to recent pressor requirement and bradycardia. We would start dopamine if the patient becomes persistently bradycardic into the 40s. Continue IV diuretics. Otherwise, monitor volume status closely. Replete electrolytes. Continue anticoagulation. Ventilator management per Pulmonary. Her prognosis is poor. Further ischemic evaluation can be considered if the patient improves from her current illness. Thank you for this consult. We will continue to follow. Khloe Hayward MD ABS/MODL /[id number] MTDD
[2020-05-04] MEDS ORDERED: ALBUMIN 25% 25GM 100ML 200 ML IV ONE (16:30)
[2020-05-04] MEDS ORDERED: ALBUMIN 25% 25GM 100ML 0.25 GM/ML BTL IV ONE (16:30)
[2020-05-04] MEDS ORDERED: ATROPINE SULFATE 0.1 MG/ML 10ML SYR ONE (17:34)
--- NOTE | 2020-05-04 18:38 | NUR ---
Highlights of the shift: Tone turned off when patient was supined at 1500. Fentanyl at 150, Versed at 6. Norepi at 2. Attempted to start Dopamine at 1245 (for persistent worsening bradycardia (HR 47-49) with patient quickly developing ST with frequent PVCs at 2 mcs/kg/min and high BP. The medication was stopped, eap specialist notified. Atropine advised to use if necessary. Current HR 56. Pt was able to tolerate Fi)2 of 65% while proned. Up to 70% while supine. Sputum cultures sent. No secretions. Peak pressures 27-30. Trickel feeds started via DH to L nare (60 cms). Flexiseal remains in place. Flushed. Briones catheter in place. Patient is net negative 150 mls for the shift. LAsix drip stopped, Albumin administered. Kphos and MAg given. PIV started in addition to CVC. Linear sacral wound. Cleansed, Venilex applied, mepilex changed.
[2020-05-04 20:23] LABS: ANION GAP 16.6 mmol/L (8-16); CALCIUM 7.8 mg/dL (8.4-10.2); CREATININE, SERUM 1.26 mg/dL (0.57-1.11); POTASSIUM 3.6 mmol/L (3.5-5.1)
--- NOTE | 2020-05-04 20:43 | Diagnostic Imaging Report ---
EXAM: CHEST SINGLE (PORTABLE) DATE: 05/04/2020 8:00 PM INDICATION: Respiratory failure COMPARISON: 05/03/2020 at 5:32 PM FINDINGS: Endotracheal tube terminates approximately 3.8 cm above the eliseo. Right IJ central venous catheter again terminates over the SVC. Enteric tube is in place. Bilateral patchy airspace opacities are unchanged. Bibasilar opacities slightly improved, likely due to improving atelectasis and effusion.. The cardiomediastinal silhouette is stable in appearance. No acute osseous abnormalities identified. IMPRESSION: 1. Slightly improved bibasilar opacities, likely due to improving atelectasis and effusion. 2. Stable bilateral patchy airspace opacities are likely due to multifocal pneumonia. Signed by: Mariusz So MD on 05/04/2020 8:40 PM
[2020-05-04 20:47] LABS: MAGNESIUM 2.3 MG/DL (1.3-2.1)
[2020-05-04] MEDS: MIDAZOLAM HCL 5MG/ML 10ML VIAL 100 ML IV PRN (21:14)
[2020-05-05] VITALS (26 sets, daily range): BP systolic 54–190; BP diastolic 37–89
[2020-05-05] MEDS: MEROPENEM 1GM 100 ML IV SCH ×3 (02:30→17:29)
[2020-05-05] MEDS ORDERED: SODIUM BICARBONATE 8.4% INJ 50 ML SYR IV STA (03:41)
[2020-05-05] MEDS ORDERED: SODIUM CHLORIDE 0.9% 500ML 500 ML IV ONE (03:45)
[2020-05-05] MEDS: VASOPRESSIN 100 UNIT in DEXTROSE 5% 100ML 100 ML IV SCH (03:45)
[2020-05-05] MEDS ORDERED: SODIUM CHLORIDE 0.9% 1000ML 1,000 ML ONE (03:45)
[2020-05-05] MEDS ORDERED: ALBUMIN 25% 12.5GM 50ML 100 ML IV ONE (04:01)
[2020-05-05 04:15] LABS: ABG PCO2 69 mmHg (35-45); ABG PH 7.31 (7.35-7.45)
[2020-05-05 04:16] LABS: ABG HCO3 35 mmol/L (22-26); ABG PO2 66 mmHg (80-105)
--- NOTE | 2020-05-05 04:32 | Diagnostic Imaging Report ---
Examination: Single AP view of the chest. COMPARISON: Portable chest 05/04/2020 INDICATION: Respiratory failure, suspected pneumothorax IMPRESSION: 1. Lines and Tubes: Supporting lines and tubes are unchanged. 2. Interval worsening of right basal airspace opacity with obscuration of the right hemidiaphragm, which may represent new pleural effusion. Other bilateral multifocal airspace opacities are unchanged. No pneumothorax is identified. Signed by: Dr. Riley Payan M.D. on 05/05/2020 4:29 AM
[2020-05-05 05:08] LABS: BASOPHILS # (AUTO) 0.1 (0.0-0.1); BASOPHILS % 0.6 % (0.0-1.0); EOSINOPHILS # (AUTO) 0.1 (0.0-0.4); EOSINOPHILS % 0.4 % (0.0-6.0); HEMATOCRIT 36.8 % (34.2-44.1); HEMOGLOBIN 11.3 g/dL (12.0-16.0); LYMPHOCYTES # (AUTO) 0.8 (1.0-3.2); LYMPHOCYTES % 4.5 % (18.0-39.1); MEAN CORPUSCULAR HEMOGLOBIN 30.1 pg (28-32); MEAN CORPUSCULAR HGB CONC 30.7 g/dL (31-35); MEAN CORPUSCULAR VOLUME 97.9 fL (81-99); MONOCYTES # (AUTO) 0.4 (0.2-0.8); MONOCYTES % 2.5 % (4.4-11.3); NEUTROPHILS % 89.3 % (38.7-80.0); PLATELET COUNT 219 x10e3/uL (140-360); RED BLOOD COUNT 3.76 x10e6/uL (3.6-5.1); RED CELL DISTRIBUTION WIDTH 14.3 % (11.7-14.4)
[2020-05-05] MEDS: FUROSEMIDE INJ 100 MG in SODIUM CHLORIDE 0.9% 100 ML 90 ML IV SCH (05:23)
[2020-05-05] MEDS: ROCURONIUM BROMIDE 250 MG in SODIUM CHLORIDE 0.9% 250ML 225 ML IV SCH ×2 (05:23→12:00)
[2020-05-05] MEDS: MIDAZOLAM HCL 5MG/ML 10ML VIAL 100 ML IV PRN (05:36)
[2020-05-05] MEDS: FENTANYL 2000MCG/NS 250 250 ML IV PRN ×3 (05:36→16:57)
[2020-05-05 05:37] LABS: ALBUMIN/GLOBULIN RATIO 0.8 (0.8-2.0); ANION GAP 18.2 mmol/L (8-16); CREATININE, SERUM 1.56 mg/dL (0.57-1.11); POTASSIUM 4.2 mmol/L (3.5-5.1)
[2020-05-05 06:09] LABS: ANION GAP 20.2 mmol/L (8-16); CALCIUM 7.9 mg/dL (8.4-10.2); CREATININE, SERUM 1.55 mg/dL (0.57-1.11); MAGNESIUM 2.3 MG/DL (1.3-2.1); PHOSPHORUS 4.7 MG/DL (2.3-4.7); POTASSIUM 4.2 mmol/L (3.5-5.1)
--- NOTE | 2020-05-05 07:22 | Progress Note ---
DATE: Pulmonary Critical Care Progress Note SUBJECTIVE: The patient had some tachycardia last night and again this morning. The patient also had some increased tachypnea and her pressure fell. Her Levophed was temporarily increased to max dose since she received a 500 mL fluid bolus. Her blood pressure subsequently improved and her Levophed wean back to 5 mcg. She remains on mechanical ventilation at a rate of 28 with a tidal volume of 380. Her plateau pressure is 29. Her peak airway pressure is 33, and her mean airway pressure is 19. Her FiO2 is now set at 70%. Her PEEP is set at 10. Her saturation is 95%. PHYSICAL EXAMINATION: VITAL SIGNS: Blood pressure 142/68, ventilator settings are as noted above. The heart rate is 100-110. HEENT: She has an oral endotracheal tube in place. There is a right IJ line in place. The site looks clean. CARDIAC: Reveals regular rate and rhythm with normal S1, S2. LUNGS: Auscultation of lungs shows decreased breath sounds at the bases. ABDOMEN: Soft and nontender. There is no rebound or guarding. EXTREMITIES: Some edema in all four extremities. The right hand is warm now, but becomes colder when she is in the prone position. Shows leg edema or calf tenderness. NEUROLOGICAL: Shows the patient to be sedated. LABORATORY DATA: White blood cell count from yesterday was 19 and is pending this morning. Her EAF-ki-qfwfjwgnyh ratio from yesterday was 49 to 1.26 and is pending this morning. ABG is 7.31, 69, 66, and 35. RADIOGRAPHIC DATA: Shows worsening bilateral infiltrates in new pleural effusion on the right side. IMPRESSION: 1. Acute on chronic respiratory failure. 2. Acute on chronic systolic congestive heart failure. 3. Acute kidney injury. 4. Superimposed bacterial pneumonia. 5. COVID-19 and viral pneumonia. 6. Diabetes. 7. Anemia, unspecified. 8. Thoracic outlet syndrome on the right side. PLAN: 1. Continue current ventilator settings with lung protective strategy. 2. Place the patient in the prone position again today. 3. Continue dexamethasone. 4. Begin rocuronium in addition to Versed and fentanyl. 5. Repeat ABG later this evening. 6. Enteral feedings while in the supine position. 7. Continue to wean pressors as tolerated. 8. Restart Lasix drip. Case discussed with nightshift nursing, dayshift nursing, Respiratory, and Nephrology, Infectious Disease, administration, and family. Greater than 35 minutes in direct critical care time. MD NIRANJAN Artis/HARDIK /[id number]
[2020-05-05 08:08] LABS: ABG PCO2 54 mmHg (35-45); ABG PH 7.41 (7.35-7.45); ABG PO2 76 mmHg (80-105)
[2020-05-05 08:09] LABS: ABG HCO3 34 mmol/L (22-26)
--- NOTE | 2020-05-05 09:04 | NUR ---
Patient proned at 08:30. Tolerated well.
[2020-05-05] MEDS: ENOXAPARIN SOD INJ 40 MG/0.4 ML SYR SC SCH ×2 (09:10→20:52)
[2020-05-05] MEDS: LINEZOLID 600 MG/D5W 300ML 300 ML IV SCH ×2 (09:10→20:52)
[2020-05-05] MEDS: ASPIRIN 81 MG CHEW TAB PO SCH (09:10)
[2020-05-05] MEDS: ZINC SULFATE 220 MG CAP PO SCH (09:10)
[2020-05-05] MEDS: EYE LUBRICANT OPTH OINT 3.5GM TUBE OP SCH (09:10)
[2020-05-05] MEDS: PANTOPRAZOLE 40 MG 10ML VIAL IV SCH (09:10)
[2020-05-05] MEDS: DEXAMETHASONE SOD PHOS 10 MG/1 ML VIAL IV SCH (09:10)
[2020-05-05] MEDS: ASCORBIC ACID 500 MG TAB PO SCH ×2 (09:10→17:31)
[2020-05-05] MEDS: BALSAM PERU/CASTOR OIL 60 GM OINT...G. TP SCH (09:11)
[2020-05-05] MEDS: MUPIROCIN 2% OINT 22 GM TUBE TOP SCH (09:11)
[2020-05-05 11:03] LABS: BAND NEUTROPHILS % (MANUAL) 2 %; LYMPHOCYTES % (MANUAL) 4 % (19-48); MONOCYTES % (MANUAL) 3 % (3.4-9.0); NEUTROPHILS % (MANUAL) 91 % (40-74); PLATELET ESTIMATE ADEQUATE; PLATELET MORPHOLOGY COMMENT NORMAL; RBC MORPHOLOGY COMMENT NORMAL
--- NOTE | 2020-05-05 12:55 | Progress Note ---
DATE: 05/05/2020 Cardiology Progress Note. SUBJECTIVE: The patient remains intubated and sedated. She is being ventilated in a prone position, currently on Levophed. Patient discussed with nursing staff. OBJECTIVE: VITAL SIGNS: Temperature 98.9 degrees, pulse 62, respiratory rate 28, blood pressure 132/66, oxygen saturation 99% on mechanical ventilation. The patient was not examined due to isolation for COVID-19. CARDIAC MEDICATIONS: 1. Aspirin 81 mg p.o. daily. 2. Lovenox 40 mg subcu q.12 hours. 3. Furosemide drip. LABORATORY DATA: WBC 16.83, hemoglobin 11.3, hematocrit 36.8, platelets 219. Sodium 150, potassium 4.2, chloride 102, CO2 of 32, BUN 57, and creatinine 1.55. Telemetry was personally reviewed and interpreted revealing sinus bradycardia. She had an episode of atrial fibrillation and atrial flutter with rapid ventricular response overnight. IMPRESSION: 1. Acute hypoxic respiratory failure. 2. COVID-19 viral pneumonia on mechanical ventilation. 3. Atrial fibrillation/flutter. 4. Acute kidney injury. 5. Elevated CK and troponin. 6. Elevated BNP. 7. Chronic systolic heart failure. 8. Coronary artery disease with prior LAD and circumflex stents. 9. Diabetes mellitus. 10. Hypertension. 11. Hyperlipidemia. RECOMMENDATIONS: Troponin elevation is likely due to demand ischemia in the setting of acute hypoxic respiratory failure and sepsis secondary to COVID-19 pneumoniae. Continue medical therapy with aspirin and statin. Due to pressor requirement and bradycardia, no beta-blockade at this time. Monitor patient closely on telemetry. The patient needs free water. Check BNP. May need to decrease diuresis. Continue anticoagulation. Ventilator management per Pulmonary. Her prognosis is poor. Further ischemic evaluation can be considered if the patient recovers from her current illness. Thank you for this consult. We will continue to follow. Khloe Hayward MD ABS/MODL /[id number] JOSE JUAN
[2020-05-05 18:44] LABS: ALBUMIN 2.7 g/dL (3.5-5.0); ALBUMIN/GLOBULIN RATIO 0.8 (0.8-2.0); ANION GAP 13.8 mmol/L (8-16); CALCIUM 7.7 mg/dL (8.4-10.2); CREATININE, SERUM 1.26 mg/dL (0.57-1.11); POTASSIUM 3.8 mmol/L (3.5-5.1)
[2020-05-05 21:12] LABS: ABG HCO3 38 mmol/L (22-26); ABG PCO2 51 mmHg (35-45); ABG PH 7.48 (7.35-7.45); ABG PO2 81 mmHg (80-105)
[2020-05-06] VITALS (59 sets, daily range): BP systolic 87–182; BP diastolic 41–86
[2020-05-06] MEDS: MEROPENEM 1GM 100 ML IV SCH ×3 (01:39→17:08)
[2020-05-06] MEDS: FUROSEMIDE INJ 100 MG in SODIUM CHLORIDE 0.9% 100 ML 90 ML IV SCH (01:39)
[2020-05-06] MEDS: VASOPRESSIN 100 UNIT in DEXTROSE 5% 100ML 100 ML IV SCH (03:45)
[2020-05-06] MEDS: ROCURONIUM BROMIDE 250 MG in SODIUM CHLORIDE 0.9% 250ML 225 ML IV SCH (05:00)
[2020-05-06 05:27] LABS: BASOPHILS % 0.3 % (0.0-1.0); EOSINOPHILS % 0.3 % (0.0-6.0); HEMATOCRIT 32.8 % (34.2-44.1); HEMOGLOBIN 10.2 g/dL (12.0-16.0); LYMPHOCYTES # (AUTO) 0.5 (1.0-3.2); MEAN CORPUSCULAR HEMOGLOBIN 28.8 pg (28-32); MEAN CORPUSCULAR HGB CONC 31.1 g/dL (31-35); MEAN CORPUSCULAR VOLUME 92.7 fL (81-99); MONOCYTES # (AUTO) 0.3 (0.2-0.8); MONOCYTES % 5.3 % (4.4-11.3); NEUTROPHILS # (AUTO) 5.1 (2.1-6.9); PLATELET COUNT 167 x10e3/uL (140-360); RED BLOOD COUNT 3.54 x10e6/uL (3.6-5.1); RED CELL DISTRIBUTION WIDTH 13.7 % (11.7-14.4)
[2020-05-06 05:30] LABS: INR 1.05; PROTHROMBIN TIME 14.3 seconds (11.9-14.5)
[2020-05-06 06:01] LABS: ALBUMIN 2.7 g/dL (3.5-5.0); ALBUMIN/GLOBULIN RATIO 0.8 (0.8-2.0); ANION GAP 15.7 mmol/L (8-16); CALCIUM 7.7 mg/dL (8.4-10.2); CREATININE, SERUM 1.29 mg/dL (0.57-1.11); MAGNESIUM 1.9 MG/DL (1.3-2.1); PHOSPHORUS 2.8 MG/DL (2.3-4.7); POTASSIUM 3.7 mmol/L (3.5-5.1)
--- NOTE | 2020-05-06 07:36 | Diagnostic Imaging Report ---
EXAMINATION: CHEST SINGLE (PORTABLE) INDICATION: ARDS, INTUBATED COMPARISON: Multiple prior chest x-ray examinations most recent dated 05/05/2020. FINDINGS: AP view TUBES and LINES: None. LUNGS/PLEURA: Unchanged bilateral pleural effusions pleural effusion. Unchanged bilateral multifocal airspace opacities consistent with ARDS. No pneumothorax is identified HEART AND MEDIASTINUM: The cardiomediastinal silhouette is unremarkable. BONES AND SOFT TISSUES: No acute osseous lesion. Soft tissues are unremarkable. UPPER ABDOMEN: No free air under the diaphragm. IMPRESSION: Unchanged bilateral pleural effusions pleural effusion. Unchanged bilateral multifocal airspace opacities consistent with ARDS. Signed by: Mariusz So MD on 05/06/2020 7:32 AM
[2020-05-06] MEDS ORDERED: DEXTROSE 50% SYRINGE 50 ML IV PRN ×2 (08:30→10:15)
[2020-05-06] MEDS ORDERED: ACETAZOLAMIDE SODIUM 500 MG/VIAL IV ONE (08:45)
--- NOTE | 2020-05-06 09:04 | Progress Note ---
DATE: Pulmonary Critical Care Progress Note SUBJECTIVE: The patient is remaining on the ventilator. She is on a PRVC mode of ventilation at a rate of 28 with a tidal volume of 380 and a PEEP of 10. FiO2 is set at 65% and her saturations are 97%. Her peak airway pressure is 28. Her mean airway pressure is 17. She remains on Levophed at 5. She continues to be on a Lasix drip. She is receiving some enteral feedings as well as some free water. PHYSICAL EXAMINATION: VITAL SIGNS: The patient is afebrile, blood pressure is 109/52, and saturation is 97%. The PRVC mode of ventilation is as noted above. HEENT: There is an oral endotracheal tube in place. There is a right IJ line. The site looks clean. CARDIAC: Reveals regular rate and rhythm with normal S1 and S2. LUNGS: Auscultation of lungs reveals crackles at the bases. There is no wheezing. ABDOMEN: Soft and nontender. There is no rebound or guarding. EXTREMITIES: There is some leg edema bilaterally. LABORATORY DATA: BUN and creatinine ratio is 66 and 1.29 and the other electrolytes are within normal limits. The blood sugars are 260 to 338. Total bilirubin is 1.6. Albumin is 2.7. RADIOGRAPHIC DATA: Chest x-ray shows bilateral pleural effusions and bilateral pulmonary infiltrates. IMPRESSION: 1. Vnduj-am-tfjvrpz respiratory failure. 2. Ldpzj-ok-rspgxqd systolic congestive heart failure. 3. Acute kidney injury. 4. Superimposed bacterial pneumonia. 5. Coronavirus disease 2019 and viral pneumonia. 6. Diabetes. 7. Anemia, unspecified. PLAN: 1. Stop Lasix drip and give Bumex. 2. Continue PRVC mode of ventilation with lung protective strategy. 3. Complete dexamethasone. 4. Continue enteral feedings. 5. Insulin drip. 6. Continue to wean Levophed. 7. Continue antibiotics. 8. Case discussed with dayshift nursing, nightshift nursing, Respiratory, family, and administration. Greater than 35 minutes in direct critical care time. Ayush Welch MD [facility]/MODL /[id number]
[2020-05-06 09:20] LABS: ABG HCO3 38 mmol/L (22-26); ABG PCO2 46 mmHg (35-45); ABG PH 7.53 (7.35-7.45); ABG PO2 78 mmHg (80-105)
[2020-05-06] MEDS: PANTOPRAZOLE 40 MG 10ML VIAL IV SCH (09:23)
[2020-05-06] MEDS: EYE LUBRICANT OPTH OINT 3.5GM TUBE OP SCH (09:23)
[2020-05-06] MEDS: DEXAMETHASONE SOD PHOS 10 MG/1 ML VIAL IV SCH (09:23)
[2020-05-06] MEDS: ASPIRIN 81 MG CHEW TAB PO SCH (09:24)
[2020-05-06] MEDS: ZINC SULFATE 220 MG CAP PO SCH (09:25)
[2020-05-06] MEDS: BALSAM PERU/CASTOR OIL 60 GM OINT...G. TP SCH (09:25)
[2020-05-06] MEDS: MUPIROCIN 2% OINT 22 GM TUBE TOP SCH (09:25)
[2020-05-06] MEDS: ASCORBIC ACID 500 MG TAB PO SCH ×2 (09:25→17:08)
[2020-05-06] MEDS: ENOXAPARIN SOD INJ 40 MG/0.4 ML SYR SC SCH ×2 (09:25→20:27)
[2020-05-06] MEDS: LINEZOLID 600 MG/D5W 300ML 300 ML IV SCH ×2 (09:38→20:27)
[2020-05-06] MEDS ORDERED: INSULIN GLARGINE 100 UNITS/ML VIAL SQ NR (10:15)
[2020-05-06] MEDS: INSULIN REGULAR, HUMAN 3ML VL 100 UNIT in SODIUM CHLORIDE 0.45% 100 ML 99 ML IV SCH ×2 (11:27)
--- NOTE | 2020-05-06 11:49 | Progress Note ---
DATE: Cardiology Progress Note SUBJECTIVE: Nursing reports the patient noted to be bradycardic at times with reported rates in the 50s. Denies any pauses noted. OBJECTIVE: VITAL SIGNS: Temperature 98.6, pulse 50, respiratory rate 28, blood pressure 113/49, oxygen saturation 96% on mechanical ventilator. CARDIOVASCULAR MEDICATIONS: Lovenox 40 mg subcu q.12 hours, aspirin 81 mg p.o. daily. LABORATORY DATA: WBC 6.26, hemoglobin 10.2, hematocrit 32.8, platelets 167. Sodium 145, potassium 3.7, BUN 66, creatinine 1.29, glucose 330. Calcium 7.7, AST 34, ALT 58. BNP 632.1. Chest x-ray with unchanged bilateral pleural effusion, unchanged bilateral multifocal airspace opacities consistent with ARDS. IMPRESSION: 1. Acute hypoxic respiratory failure. 2. Coronavirus disease-19 viral pneumonia on mechanical ventilator. 3. Atrial fibrillation/flutter. Currently in sinus bradycardia. 4. Acute kidney injury. 5. Elevated CK and troponin. 6. Elevated BNP. 7. Systolic heart failure. 8. Coronary artery disease with prior left anterior descending artery and left circumflex stent. 9. Diabetes mellitus. 10. Hypertension. 11. Hyperlipidemia. RECOMMENDATIONS: Elevated troponin likely due to demand ischemia in the setting of acute hypoxic respiratory failure and sepsis secondary to COVID-19. Continue medical therapy with aspirin and statin. Due to pressor requirement and bradycardia, not on beta blockers at this time. We will continue to monitor bradycardia on telemetry. Continue anticoagulation. Ventilator support for pulmonary. Prognosis is poor. Further ischemic evaluation will be considered depending on patient's recovery. Dictated by Darcie Villa NP MD VALENTE Diaz/HARDIK /[id number]
--- NOTE | 2020-05-06 11:49 | Progress Note ---
DATE: SUBJECTIVE: The patient is in ICU room 191. The patient was discussed with the nursing staff and Dr. Hugo, overall slightly improved with FiO2 of 70% to 65% off paralytic agents, remains sedated and orally intubated. Overall, maybe slightly improved since yesterday. REVIEW OF SYSTEMS: Unable to obtain review of systems secondary to patient's medical condition. OBJECTIVE: VITAL SIGNS: Temperature 99.4, pulse is 59, respiration 28, blood pressure 148/59. GENERAL: Orally intubated. CV: S1, S2. CHEST: Bilateral crackles. ABDOMEN: Obese and soft. EXTREMITIES: With edema. MEDICATIONS: Reviewed from ID point of view. The patient is on Zyvox, Merrem. LABORATORY DATA: Leukocytosis resolved to 6.26 from 16.83, hemoglobin 10.2, platelet 167. Sodium 145, potassium 3.7, creatinine 1.29. Coronavirus PCR detected on 04/30/2020. MICROBIOLOGY: Sputum showed yeast. Urine culture negative. Blood culture negative. Chest x-ray 05/06, unchanged bilateral pleural effusion. Also unchanged bilateral multifocal airspace opacities consistent with ARDS. ASSESSMENT AND PLAN: 1. Coronavirus disease-19 respiratory failure. 2. Superimposed bacterial pneumonia. 3. Respiratory failure. 4. Renal failure. 5. Leukocytosis, resolved. 6. Continue to monitor. Further management of this patient is based on daily findings on laboratory and physical examination. The patient remains on dexamethasone. Please refer to chart for more information. Dictated by Mariusz Gonzalez PA-C (Al) Mariely Hugo MD /MODL /[id number]
[2020-05-06] MEDS: ACETAMINOPHEN 325 MG/10 ML UDC NG PRN ×2 (12:27→23:53)
[2020-05-06] MEDS: FENTANYL 2000MCG/NS 250 250 ML IV PRN (13:00)
[2020-05-06] MEDS ORDERED: INSULIN LISPRO 100 UNIT/1 ML 3ML VIAL SQ SCH (14:00)
[2020-05-06] MEDS: NOREPINEPHRINE 8 MG/D5W 250 ML 250 ML IV PRN (16:00)
[2020-05-06] MEDS: INSULIN GLARGINE 100 UNITS/ML VIAL SQ SCH (20:22)
[2020-05-07] VITALS (25 sets, daily range): BP systolic 79–173; BP diastolic 36–75
[2020-05-07] MEDS: MIDAZOLAM HCL 5MG/ML 10ML VIAL 100 ML IV PRN (00:51)
[2020-05-07] MEDS: MEROPENEM 1GM 100 ML IV SCH ×3 (02:00→17:45)
[2020-05-07] MEDS: VASOPRESSIN 100 UNIT in DEXTROSE 5% 100ML 100 ML IV SCH (03:45)
[2020-05-07 05:46] LABS: BASOPHILS # (AUTO) 0.1 (0.0-0.1); BASOPHILS % 0.4 % (0.0-1.0); EOSINOPHILS # (AUTO) 0.4 (0.0-0.4); EOSINOPHILS % 2.6 % (0.0-6.0); HEMATOCRIT 36.1 % (34.2-44.1); HEMOGLOBIN 11.3 g/dL (12.0-16.0); LYMPHOCYTES # (AUTO) 1.3 (1.0-3.2); LYMPHOCYTES % 9.7 % (18.0-39.1); MEAN CORPUSCULAR HEMOGLOBIN 29.7 pg (28-32); MEAN CORPUSCULAR HGB CONC 31.3 g/dL (31-35); MONOCYTES # (AUTO) 0.9 (0.2-0.8); MONOCYTES % 6.9 % (4.4-11.3); NEUTROPHILS # (AUTO) 9.9 (2.1-6.9); NEUTROPHILS % 74.6 % (38.7-80.0); PLATELET COUNT 217 x10e3/uL (140-360); RED CELL DISTRIBUTION WIDTH 13.7 % (11.7-14.4)
[2020-05-07 06:38] LABS: ALBUMIN 2.5 g/dL (3.5-5.0); ALBUMIN/GLOBULIN RATIO 0.8 (0.8-2.0); ANION GAP 12.5 mmol/L (8-16); CALCIUM 7.9 mg/dL (8.4-10.2); CREATININE, SERUM 1.18 mg/dL (0.57-1.11); POTASSIUM 3.5 mmol/L (3.5-5.1)
--- NOTE | 2020-05-07 07:01 | Diagnostic Imaging Report ---
Examination: Single AP view of the chest. COMPARISON: Portable chest 05/06/2020 INDICATION: Respiratory failure, pneumonia IMPRESSION: 1. Lines and Tubes: Supporting lines and tubes are unchanged. 2. No interval change in bilateral multifocal interstitial and alveolar opacities as well as bilateral pleural effusions. Signed by: Dr. Riley Payan M.D. on 05/07/2020 6:58 AM
[2020-05-07 08:19] LABS: BAND NEUTROPHILS % (MANUAL) 2 %; EOSINOPHILS % (MANUAL) 2 % (0-7); LYMPHOCYTES % (MANUAL) 8 % (19-48); MONOCYTES % (MANUAL) 5 % (3.4-9.0); NEUTROPHILS % (MANUAL) 83 % (40-74)
[2020-05-07] MEDS: PANTOPRAZOLE 40 MG 10ML VIAL IV SCH (08:45)
[2020-05-07] MEDS: LINEZOLID 600 MG/D5W 300ML 300 ML IV SCH ×2 (08:45→20:47)
[2020-05-07] MEDS: DEXAMETHASONE SOD PHOS 10 MG/1 ML VIAL IV SCH (08:45)
[2020-05-07 09:00] LABS: ABG HCO3 34 mmol/L (22-26); ABG PCO2 47 mmHg (35-45); ABG PH 7.47 (7.35-7.45); ABG PO2 109 mmHg (80-105)
[2020-05-07] MEDS: ENOXAPARIN SOD INJ 40 MG/0.4 ML SYR SC SCH ×2 (09:14→20:47)
[2020-05-07] MEDS: ZINC SULFATE 220 MG CAP PO SCH (09:14)
[2020-05-07] MEDS: BALSAM PERU/CASTOR OIL 60 GM OINT...G. TP SCH (09:14)
[2020-05-07] MEDS: ASPIRIN 81 MG CHEW TAB PO SCH (09:14)
[2020-05-07] MEDS: EYE LUBRICANT OPTH OINT 3.5GM TUBE OP SCH (09:14)
[2020-05-07] MEDS: MUPIROCIN 2% OINT 22 GM TUBE TOP SCH (09:14)
[2020-05-07] MEDS: ASCORBIC ACID 500 MG TAB PO SCH ×2 (09:14→17:45)
[2020-05-07] MEDS: FENTANYL 2000MCG/NS 250 250 ML IV PRN (09:57)
--- NOTE | 2020-05-07 10:13 | Progress Note ---
DATE: Cardiology Progress Note SUBJECTIVE: Nursing reports no new concerns overnight. Reports to have episodes of sinus bradycardia. No new complaints. OBJECTIVE: VITAL SIGNS: Temperature 98.0, pulse 55, respiratory rate 28, blood pressure 113/56, oxygen saturation 98% on mechanical ventilator. CARDIOVASCULAR MEDICATIONS: 1. Aspirin 81 mg p.o. daily. 2. Lovenox 40 mg subcu q.12 hours. LABORATORY DATA: WBC 13.34, hemoglobin 11.3, hematocrit 36.1, platelets 217. Sodium 145, potassium 3.5, BUN 68, creatinine 1.18, AST 41, ALT 52. Chest x-ray with no interval change in bilateral multifocal interstitial and alveolar opacities as well as bilateral pleural effusions. I have personally reviewed on telemetry, which reveals sinus bradycardia. IMPRESSION: 1. Acute hypoxic renal failure. 2. Coronavirus disease viral pneumonia, on mechanical ventilator. 3. Atrial fibrillation with atrial flutter, now in sinus stacy. 4. Acute kidney injury. 5. Elevated CK and troponin. 6. Elevated BNP. 7. Systolic heart failure. 8. Coronary artery disease with prior left anterior descending and left circumflex stent. 9. Diabetes mellitus. 10. Hypertension. 11. Hyperlipidemia. 12. Abnormal liver function test. RECOMMENDATION: Statin on hold at this time. Continue the above listed cardiac medications. Continue to monitor bradycardia on telemetry at all time. Elevated troponin was likely due to demand ischemia in the setting of acute hypoxic renal failure and sepsis. Continue Infectious Disease management of COVID-19. Continue anticoagulation and CVA prophylaxis. No beta blockades due to bradycardia. We will continue to follow this patient. Dictated by Darcie Villa, JANEEN MD [facility]/HARDIK /[id number]
[2020-05-07] MEDS: NOREPINEPHRINE 8 MG/D5W 250 ML 250 ML IV PRN (10:19)
[2020-05-07] MEDS ORDERED: POTASSIUM CHLORIDE 20MEQ/100ML 200 ML IV ONE (12:00)
--- NOTE | 2020-05-07 13:14 | Progress Note ---
DATE: Pulmonary Critical Care Progress Note SUBJECTIVE: The patient is on less Levophed. She is only on 2 mcg. Her FiO2 is decreased to 55% and her PEEP is 10. She is on a PRVC mode of ventilation with a rate of 26 and tidal volume of 380. Her Versed is decreased to 1 mg and she is on fentanyl at 100 mcg, but is still very somnolent. PHYSICAL EXAMINATION: VITAL SIGNS: The blood pressure is 152/65 and saturation is 97%. She is on PRVC as noted above. There is nasogastric tube in place with enteral feedings. She also has an IJ line. The site looks clean. CARDIAC: Reveals regular rate and rhythm with normal S1 and S2. LUNGS: Auscultation of lungs reveals decreased breath sounds at the bases. There is no wheezing. ABDOMEN: Soft and nontender. There is no rebound or guarding. EXTREMITIES: Shows no leg edema or calf tenderness. There is no cyanosis or clubbing. SKIN: Shows no rashes. NEUROLOGICAL: Shows the patient to be sedated. LABORATORY DATA: BUN to creatinine ratio is 68 to 1.18 and other electrolytes are within normal limits. The albumin is 2.5. White blood cell count is 13.3 and the hemoglobin is 11.3. The platelet count is 217. IMPRESSION: 1. Acute respiratory failure. 2. Alwtd-qy-pxueyim systolic congestive heart failure. 3. Acute kidney injury. 4. Bacterial pneumonia with sepsis, present on admission. 5. Viral pneumonia and COVID-19 infection. 6. Diabetes. 7. Anemia. PLAN: 1. Continue to decrease FiO2 and wean ventilator as tolerated. 2. Continue enteral feedings. 3. Continue dexamethasone. 4. Insulin as needed. 5. Continue to wean Levophed. 6. Albumin today. 7. Continue antibiotics. 8. Case discussed with night auditor nursing, day shift nursing, Respiratory, Internal Medicine, Nephrology, and family. Greater than 35 minutes in direct critical care time. Ayush Welch MD [facility]/MODL /[id number]
[2020-05-07] MEDS ORDERED: ALBUMIN 25% 25GM 100ML 0.25 GM/ML BTL IV SCH (14:00)
[2020-05-07] MEDS: ALBUMIN 25% 25GM 100ML 100 ML IV SCH ×2 (14:30→21:16)
--- NOTE | 2020-05-07 17:00 | NUR ---
Dr Welch called and made aware that ETT tube 22 @ lip; ETT tube was 24@ lip yesterday. Chest X Ray ordered for AM, no other orders received.
[2020-05-07] MEDS: INSULIN GLARGINE 100 UNITS/ML VIAL SQ SCH (20:49)
[2020-05-08] VITALS (15 sets, daily range): BP systolic 90–165; BP diastolic 39–76
[2020-05-08] MEDS: MEROPENEM 1GM 100 ML IV SCH ×3 (02:00→19:07)
[2020-05-08] MEDS: VASOPRESSIN 100 UNIT in DEXTROSE 5% 100ML 100 ML IV SCH (03:45)
[2020-05-08 05:07] LABS: BASOPHILS % 0.3 % (0.0-1.0); EOSINOPHILS # (AUTO) 0.4 (0.0-0.4); HEMATOCRIT 32.8 % (34.2-44.1); HEMOGLOBIN 10.2 g/dL (12.0-16.0); LYMPHOCYTES # (AUTO) 1.6 (1.0-3.2); LYMPHOCYTES % 14.5 % (18.0-39.1); MEAN CORPUSCULAR HGB CONC 31.1 g/dL (31-35); MEAN CORPUSCULAR VOLUME 93.2 fL (81-99); MONOCYTES # (AUTO) 0.7 (0.2-0.8); MONOCYTES % 6.1 % (4.4-11.3); NEUTROPHILS # (AUTO) 7.5 (2.1-6.9); NEUTROPHILS % 69.2 % (38.7-80.0); PLATELET COUNT 212 x10e3/uL (140-360); RED BLOOD COUNT 3.52 x10e6/uL (3.6-5.1); RED CELL DISTRIBUTION WIDTH 13.6 % (11.7-14.4)
[2020-05-08 05:17] LABS: INR 1.03; PROTHROMBIN TIME 14.1 seconds (11.9-14.5)
[2020-05-08 05:26] LABS: ALANINE AMINOTRANSFERASE 35 IU/L (0-55); ALBUMIN 2.8 g/dL (3.5-5.0); ALKALINE PHOSPHATASE 99 IU/L (40-150); ANION GAP 13.3 mmol/L (8-16); BLOOD UREA NITROGEN 58 mg/dL (7-26); BUN/CREATININE RATIO 70 (6-25); CALCIUM 8.4 mg/dL (8.4-10.2); CARBON DIOXIDE 30 mmol/L (22-29); CHLORIDE 103 mmol/L (98-107); CREATININE, SERUM 0.83 mg/dL (0.57-1.11); EST GLOMERULAR FILTRATION RATE > 60 ML/MIN (60-); GLUCOSE 89 mg/dL (74-118); MAGNESIUM 2.4 MG/DL (1.3-2.1); PHOSPHORUS 3.2 MG/DL (2.3-4.7); POTASSIUM 4.3 mmol/L (3.5-5.1); SODIUM 142 mmol/L (136-145)
[2020-05-08] MEDS: ALBUMIN 25% 25GM 100ML 100 ML IV SCH (05:53)
--- NOTE | 2020-05-08 06:56 | Diagnostic Imaging Report ---
Examination: Single AP view of the chest. COMPARISON: Portable chest 05/07/2020 INDICATION: Pneumonia, respiratory failure IMPRESSION: 1. Lines and Tubes: Supporting lines and tubes are unchanged. 2. No significant interval change in bilateral multifocal interstitial and alveolar opacities and bilateral pleural effusions. Signed by: Dr. Riley Payan M.D. on 05/08/2020 6:53 AM
[2020-05-08 09:13] LABS: BAND NEUTROPHILS % (MANUAL) 3 %; EOSINOPHILS % (MANUAL) 4 % (0-7); LYMPHOCYTES % (MANUAL) 16 % (19-48); MONOCYTES % (MANUAL) 7 % (3.4-9.0); NEUTROPHILS % (MANUAL) 70 % (40-74); PLATELET ESTIMATE ADEQUATE; PLATELET MORPHOLOGY COMMENT NORMAL; RBC MORPHOLOGY COMMENT NORMAL
--- NOTE | 2020-05-08 09:52 | Progress Note ---
DATE: 05/05/2020 SUBJECTIVE: Ms. Peter remains intubated and sedated on the vent, on vasopressors, Levophed. OBJECTIVE: VITAL SIGNS: Temperature 99.8, heart rate 62, respirations 28, on mechanical ventilation. cultures are still negative. White count is 16.9, down from 19.0 yesterday. Sodium 130, potassium 4.2, creatinine 1.55. This patient who is currently on meropenem, dexamethasone, linezolid. ASSESSMENT: Coronavirus disease-19, concern superimposed pneumonia, bacteria, respiratory failure, acute kidney injury, diabetes mellitus. Continue to recheck CBC with Chem panel . We will follow. MD ELIZABETH Demarco/MODL /[id number]
[2020-05-08] MEDS: ASPIRIN 81 MG CHEW TAB PO SCH (10:40)
[2020-05-08] MEDS: EYE LUBRICANT OPTH OINT 3.5GM TUBE OP SCH (10:40)
[2020-05-08] MEDS: MUPIROCIN 2% OINT 22 GM TUBE TOP SCH (10:40)
[2020-05-08] MEDS: ASCORBIC ACID 500 MG TAB PO SCH ×2 (10:40→16:04)
[2020-05-08] MEDS: DEXAMETHASONE SOD PHOS 10 MG/1 ML VIAL IV SCH (10:44)
[2020-05-08] MEDS: LINEZOLID 600 MG/D5W 300ML 300 ML IV SCH ×2 (10:44→21:40)
[2020-05-08] MEDS: PANTOPRAZOLE 40 MG 10ML VIAL IV SCH (10:54)
[2020-05-08] MEDS: BALSAM PERU/CASTOR OIL 60 GM OINT...G. TP SCH (10:54)
[2020-05-08] MEDS: ZINC SULFATE 220 MG CAP PO SCH (10:54)
--- NOTE | 2020-05-08 13:48 | Progress Note ---
DATE: SUBJECTIVE: The patient is still sedated. Her fentanyl and Versed were held this morning. Her FiO2 was decreased to 45%. Her PEEP was decreased to 8. She is breathing about 20 times a minute, which is set with the vent. Her tidal volume is 400. She is on only half of mcg of Levophed. She is still receiving enteral feedings. She has a Flexi-Seal and has some diarrhea. PHYSICAL EXAMINATION: VITAL SIGNS: The blood pressure is 127/50 and the saturation is 95% on the settings above. HEENT: Shows no facial swelling or erythema. CARDIAC: Reveals regular rate and rhythm with normal S1 and S2. LUNGS: Auscultation of lungs reveals decreased breath sounds at the bases. There is no wheezing. ABDOMEN: Soft and nontender. There is no rebound or guarding. EXTREMITIES: Shows no leg edema or calf tenderness. There is no cyanosis or clubbing. SKIN: Shows no rashes. NEUROLOGICAL: Shows no focal abnormalities. The patient is still sedated. LABORATORY DATA: BUN to creatinine ratio is 58 to 0.83. Other electrolytes are within normal limits. The white blood cell count is 10.8 and hemoglobin is 10.2. The platelet count is 212. RADIOGRAPHIC DATA: Chest x-ray shows bilateral interstitial infiltrates and small pleural effusions. IMPRESSION: 1. Acute respiratory failure. 2. Umfon-ot-caugfkk systolic congestive heart failure. 3. Acute kidney injury. 4. Bacterial pneumonia with sepsis, present on admission. 5. Viral pneumonia with COVID-19 infection. 6. Diabetes. 7. Anemia. PLAN: 1. Continue to hold sedation. 2. Continue to wean ventilator as tolerated. Repeat ABG. 3. Continue dexamethasone. 4. Complete antibiotics. 5. Wean off Levophed. 6. Case discussed with nursing staff, Respiratory, Nephrology, Internal Medicine, and family. Greater than 35 minutes in direct critical care time. Ayush Welch MD [facility]/MODL /[id number]
[2020-05-08] MEDS ORDERED: FUROSEMIDE INJ 10 MG/ML 4 ML VIAL IV ONE (14:00)
[2020-05-08 14:28] LABS: ABG HCO3 30 mmol/L (22-26); ABG PCO2 40 mmHg (35-45); ABG PH 7.48 (7.35-7.45); ABG PO2 167 mmHg (80-105)
--- NOTE | 2020-05-08 15:57 | NUR ---
Nutrition Intervention Note RD Recommendation(s) for Physician: - Continue Vital AF 1.2. Recommend increasing towards a goal rate of 45 ml/hr when medically appropriate (provides 1296 kcal and 81 gm protein) - Water flushes per MD Plan of Care: RD following, TF rec's, monitoring for tolerance and adequacy Nutrition reason for involvement: follow up RD Assessment 05/08: Follow up. Pt remains intubated and sedated. Tube feeding is currently at 20 mL/hr. Recommendations provided. Will continue to monitor. 05/03: 69 YOF admitted for respiratory failure, septic shock, and covid-19. Pt evaluated today per intubation and pending TF. Pt remains intubated and sedated with 1 low dose pressor. Pt required proning yesterday. TF pending initiation. Pt appears well nourished. Chart reviewed. TF rec's provided. Will continue to monitor. Principal Problems/Diagnoses: covid-19, respiratory failure, septic shock PMH: CHF, CKD, CAD, DM GI: liquid stools Skin: sacrum stage II PU Labs: 05/08: Na 142, K 4.3, BUN 58, Cr 0.83, Glu 89, Mg 2.4 05/03: Na 148, K 3.9, BUN 37, Cr 1.6, Gluc 147, POC Gluc 91-117 Meds: antibiotics, zinc sulfate, protonix, dexmethasone, vitamin C, insulin, norepinephrine, fentanyl, vasopressin Ht: 62 in Wt: 232 lbs (05/08) 226 lb (05/03) BMI: 41.3 kg/m2 (using weight of 226 lbs) IBW: 110 lb Malnutrition Evaluation (05/03/20) The patient does not meet criteria for a specified degree of malnutrition at this time. Will re-evaluate at follow-up as appropriate. Unable to assess per current isolation precautions Nutrition Prescription (Diet Order): Vital AF at 20 ml/hr Estimated Nutritional Needs: 9011-7869 calories/day (22-25 kcal/kg IBW) 75-100 g protein/day (1.5-2 g pro/kg IBW) Diet Adequacy: Not meeting calorie needs, Not meeting protein needs Diet Tolerance: tolerating TF Diet Education Needs Assessment: Diet education not indicated, pt intubated. Nutrition Care Level: moderate Nutrition Diagnosis: Inadequate energy and protein intake related to intubation as evidenced by requiring EN on vent Goal: Patient will meet 75-100% of estimated needs by follow up Progress: goal not met Interventions: - Composition, Rate, Route, Recommended Modifications Monitoring/Evaluation: - Total energy intake, Total protein intake, Formula/Solution Signed: Salima Burr RD, LD
[2020-05-08] MEDS ORDERED: PROPOFOL IV EMULSION 10MG/ML 100 ML IV SCH (16:30)
--- NOTE | 2020-05-08 16:38 | Progress Note ---
DATE: SUBJECTIVE: Ms. Peter is lying on bed in intensive care unit. OBJECTIVE: VITAL SIGNS: Temperature 98.6, respiration rate 26, O2 saturation 99, on the ventilator. HEENT: She is not icteric. NECK: Supple. CHEST: Few crackles bilateral. COR: S1 and S2. No S3, S4, or murmurs. ABDOMEN: Soft. LABORATORY DATA: Reviewed. White count is 10, hemoglobin of 10, and hematocrit 32. Her sodium 142, potassium 4.3, and creatinine 0.83. The patient is currently on meropenem, this is day #5. She is on dexamethasone, day #5; linezolid, day #5. IMPRESSION: COVID-19, respiratory failure, acute kidney injury, and diabetes mellitus. Continue as ordered dexamethasone and current choice of antibiotic for 7 days. We will reassess. MD ELIAZBETH Demarco/MODL /[id number]
--- NOTE | 2020-05-08 16:58 | Progress Note ---
DATE: SUBJECTIVE: Ms. Peter remains in intensive care unit, intubated. The patient is currently on meropenem, dexamethasone, and Zyvox. PHYSICAL EXAMINATION: GENERAL: Intubated and sedated. VITAL SIGNS: Stable. HEENT: Not icteric. CHEST: Few crackles. COR: S1 and S2. No S3, S4, or murmur. LABORATORY DATA: White count is 10. Sodium 142 and creatinine 0.83. IMPRESSION: Respiratory failure, COVID-19, superimposed bacterial pneumonia. PLAN: To continue the same as ordered. We will follow. MD ELIZABETH Demarco/MODL /[id number]
--- NOTE | 2020-05-08 18:44 | Progress Note ---
DATE: 05/08/2020 Cardiology Progress Note. SUBJECTIVE: The patient remains intubated and sedated. Patient discussed with nursing staff. OBJECTIVE: VITAL SIGNS: Temperature 98.1 degrees, pulse 56, respiratory rate 26, blood pressure 107/46, oxygen 93% on mechanical ventilation. The patient was not examined due to isolation for COVID-19. CARDIAC MEDICATIONS: Aspirin 81 mg p.o. daily. LABORATORY DATA: WBC 10.82, hemoglobin 10.2, hematocrit 32.8, platelets 212,000. Sodium 142, potassium 4.3, chloride 103, CO2 30, BUN 58, creatinine 0.83. TELEMETRY: Personally reviewed and interpreted revealing normal sinus rhythm. IMPRESSION: 1. Acute hypoxic respiratory failure. 2. COVID-19 viral pneumonia on mechanical ventilation. 3. Atrial fibrillation/flutter, currently sinus bradycardia. 4. Acute kidney injury. 5. Elevated CK and troponin. 6. Elevated BNP. 7. Chronic systolic heart failure. 8. Coronary artery disease, prior LAD and circumflex stents. 9. Diabetes mellitus. 10. Hypertension. 11. Hyperlipidemia. 12. Elevated LFTs. RECOMMENDATIONS: Statin currently held due to elevated LFTs. Continue aspirin. Recommend continuing anticoagulation given the patient's COVID-19 pneumonia. No beta-blockade at this time due to bradycardia. Monitor the patient closely on telemetry. Continue supportive care. Would recommend keeping the patient negative given elevated BNP and systolic heart failure. Thank you for this consult. We will continue to follow. Khloe Hayward MD [facility]/MODL /[id number]
[2020-05-08] MEDS: INSULIN GLARGINE 100 UNITS/ML VIAL SQ SCH (21:00)
[2020-05-08] MEDS ORDERED: DEXMEDETOMIDINE 200MCG/NS 50ML 100 ML IV ONE (22:27)
[2020-05-08] MEDS: DEXMEDETOMIDINE HCL 200 MCG in SODIUM CHLORIDE 0.9% 50ML 48 ML IV PRN (22:30)
[2020-05-09] VITALS (15 sets, daily range): BP systolic 90–176; BP diastolic 46–117
[2020-05-09] MEDS: MEROPENEM 1GM 100 ML IV SCH ×3 (02:01→18:30)
[2020-05-09] MEDS: VASOPRESSIN 100 UNIT in DEXTROSE 5% 100ML 100 ML IV SCH (03:45)
[2020-05-09 04:35] LABS: BASOPHILS % 0.3 % (0.0-1.0); EOSINOPHILS # (AUTO) 0.3 (0.0-0.4); EOSINOPHILS % 2.5 % (0.0-6.0); HEMATOCRIT 33.4 % (34.2-44.1); HEMOGLOBIN 10.5 g/dL (12.0-16.0); LYMPHOCYTES % 17.4 % (18.0-39.1); MEAN CORPUSCULAR HEMOGLOBIN 28.9 pg (28-32); MEAN CORPUSCULAR HGB CONC 31.4 g/dL (31-35); MONOCYTES # (AUTO) 0.5 (0.2-0.8); MONOCYTES % 4.5 % (4.4-11.3); NEUTROPHILS # (AUTO) 8.1 (2.1-6.9); PLATELET COUNT 206 x10e3/uL (140-360); RED BLOOD COUNT 3.63 x10e6/uL (3.6-5.1); RED CELL DISTRIBUTION WIDTH 13.5 % (11.7-14.4)
[2020-05-09 04:55] LABS: ALANINE AMINOTRANSFERASE 37 IU/L (0-55); ALBUMIN 2.9 g/dL (3.5-5.0); ALKALINE PHOSPHATASE 121 IU/L (40-150); ANION GAP 14.2 mmol/L (8-16); BLOOD UREA NITROGEN 53 mg/dL (7-26); BUN/CREATININE RATIO 62 (6-25); CALCIUM 8.5 mg/dL (8.4-10.2); CARBON DIOXIDE 30 mmol/L (22-29); CHLORIDE 97 mmol/L (98-107); CREATININE, SERUM 0.85 mg/dL (0.57-1.11); EST GLOMERULAR FILTRATION RATE > 60 ML/MIN (60-); GLUCOSE 87 mg/dL (74-118); POTASSIUM 4.2 mmol/L (3.5-5.1); SODIUM 137 mmol/L (136-145)
[2020-05-09] MEDS ORDERED: DEXMEDETOMIDINE 200MCG/NS 50ML 100 ML IV ONE (05:35)
[2020-05-09] MEDS: DEXMEDETOMIDINE HCL 200 MCG in SODIUM CHLORIDE 0.9% 50ML 48 ML IV PRN (06:16)
[2020-05-09 08:31] LABS: EOSINOPHILS % (MANUAL) 2 % (0-7); LYMPHOCYTES % (MANUAL) 13 % (19-48); MONOCYTES % (MANUAL) 6 % (3.4-9.0); MYELOCYTES % (MANUAL) 1 % (0-0); NEUTROPHILS % (MANUAL) 78 % (40-74); PLATELET ESTIMATE ADEQUATE; PLATELET MORPHOLOGY COMMENT NORMAL; RBC MORPHOLOGY COMMENT NORMAL
--- NOTE | 2020-05-09 08:53 | Diagnostic Imaging Report ---
EXAM: CHEST SINGLE (PORTABLE) DATE: 05/09/2020 5:30 AM INDICATION: Pneumonia, respiratory failure COMPARISON: 05/08/2020 FINDINGS: Support lines/tubes identified in stable position. Again identified are grossly stable appearing patchy interstitial airspace opacities bilaterally with a lower lung zone predominance. There is no evidence for pneumothorax or significant volume pleural effusion. The cardiomediastinal silhouette is stable in appearance. No acute osseous abnormalities identified. IMPRESSION: No significant interval change from 05/08/2020. Signed by: Dr. Antonio Lees MD on 05/09/2020 8:50 AM
[2020-05-09] MEDS: ASCORBIC ACID 500 MG TAB PO SCH ×2 (08:58→16:45)
[2020-05-09] MEDS: DEXAMETHASONE SOD PHOS 10 MG/1 ML VIAL IV SCH (08:58)
[2020-05-09] MEDS: ASPIRIN 81 MG CHEW TAB PO SCH (08:58)
[2020-05-09] MEDS: LINEZOLID 600 MG/D5W 300ML 300 ML IV SCH ×2 (08:58→22:03)
[2020-05-09] MEDS: MUPIROCIN 2% OINT 22 GM TUBE TOP SCH (08:58)
[2020-05-09] MEDS: PANTOPRAZOLE 40 MG 10ML VIAL IV SCH (08:58)
[2020-05-09] MEDS: BALSAM PERU/CASTOR OIL 60 GM OINT...G. TP SCH (08:59)
[2020-05-09] MEDS: ZINC SULFATE 220 MG CAP PO SCH (09:00)
[2020-05-09] MEDS: EYE LUBRICANT OPTH OINT 3.5GM TUBE OP SCH (09:47)
--- NOTE | 2020-05-09 09:58 | Progress Note ---
DATE: Pulmonary Critical Care Progress Note SUBJECTIVE: The patient is off sedation through the night and is now responding. She complains of feeling very weak. She was placed on a CPAP of 5 and pressure support of 10 and is breathing about 20 times a minute. Her tidal volumes are 300 to 350 mL. She remains on 0.5 of Levophed. PHYSICAL EXAMINATION: VITAL SIGNS: Blood pressure is 120/63 and the saturation is 94%. The heart rate 61. HEENT: Shows no facial swelling. There is an oral endotracheal tube. There is an IJ line. The site looks clean. There is no drainage. CARDIAC: Reveals regular rate and rhythm. Normal S1 and S2. LUNGS: Auscultation of lungs reveals rhonchorous breath sounds bilaterally. There is wheezing. ABDOMEN: Soft and nontender. There is no rebound or guarding. EXTREMITIES: Shows no leg edema or calf tenderness. There is no cyanosis or clubbing. SKIN: Shows no rashes. NEUROLOGIC: Shows no focal abnormalities. LABORATORY DATA: BUN to creatinine ratio is 53 to 0.85. Other electrolytes within normal limits. White blood cell count is 10.4 and hemoglobin is 10.5, and the platelet count is 206. IMPRESSION: 1. Acute respiratory failure. 2. COVID-19 and viral pneumonia. 3. Kxfqw-sy-owbcwzy systolic congestive heart failure. 4. Acute kidney injury. 5. Diabetes. 6. Anemia. PLAN: 1. Continue spontaneous breathing trial. Repeat ABG. trial and work towards extubation. 2. Wean Levophed. 3. Continue to monitor creatinine. 4. Complete dexamethasone. 5. Complete antibiotics. 6. Hold enteral feedings for now for possible extubation. Case discussed with Internal Medicine, Nursing, Respiratory, administration and family. Greater than 35 minutes in direct critical care time. MD NIRANJAN [facility]/HARDIK /[id number]
[2020-05-09] MEDS ORDERED: SODIUM CHLORIDE 0.9% 250ML 250 ML ONE (10:57)
[2020-05-09 11:22] LABS: ABG HCO3 29 mmol/L (22-26); ABG PCO2 48 mmHg (35-45); ABG PH 7.39 (7.35-7.45); ABG PO2 74 mmHg (80-105)
--- NOTE | 2020-05-09 11:49 | Progress Note ---
DATE: SUBJECTIVE: The patient evaluated with Pulmonology and nurse. Available labs and notes reviewed. REVIEW OF SYSTEMS: Unable to obtain review of systems. The patient is orally intubated; however, opens eyes when her name was called, but too lethargic and went back to sleep. The patient is being intubated with a pressure support, she is at 40% and seems to be doing well overall. OBJECTIVE: VITAL SIGNS: Temperature 98.1, pulse is 61, respirations 21, blood pressure 140/75. GENERAL: Orally intubated, opens eyes, lethargic. CV: S1, S2. CHEST: Decreased breath sounds. Equal expansion. ABDOMEN: Soft, obese, nontender, no distention. HEENT: Moist. No pallor. NECK: No JVD. EXTREMITIES: With some edema. MEDICATIONS: The patient is on meropenem, Zyvox. LABORATORY STUDIES: White count of 11.46, hemoglobin 10.5, platelets 206. Sodium 137, potassium 4.2, creatinine 0.85. Serology; coronavirus PCR detected on 04/30/2020. Microbiology; sputum culture, yeast, Evie albicans on 05/04. Urine culture and blood culture negative on 04/30/2020. RADIOLOGY STUDIES: Chest x-ray from today showed no significant interval change from 05/08. ASSESSMENT AND PLAN: 1. Coronavirus disease-19 positive, as mentioned above. 2. Respiratory failure. 3. Superimposed bacterial infection of the lung/pneumonia. 4. Anemia. 5. Diabetes. 6. Obesity. 7. Hyperlipidemia. As discussed with the Pulmonology, the patient may be extubated tomorrow. She is too lethargic today for extubation, but the extubation is definitely in the talks. We will continue with Merrem, Zyvox, zinc sulfate, dexamethasone, ascorbic acid. Monitor the patient clinically. We will follow with the labs. Overall guarded prognosis. Please refer to chart for more information. Discussed with Dr. Hugo in detail. Dictated by Mariusz Gonzalez PA-C (Al) Mariely Hugo MD /MODL /[id number]
[2020-05-09] MEDS: INSULIN REGULAR, HUMAN 3ML VL 100 UNIT in SODIUM CHLORIDE 0.45% 100 ML 99 ML IV SCH ×2 (12:00)
[2020-05-09] MEDS: INSULIN GLARGINE 100 UNITS/ML VIAL SQ SCH (22:03)
[2020-05-10] VITALS (25 sets, daily range): BP systolic 88–163; BP diastolic 43–83
[2020-05-10] MEDS: MEROPENEM 1GM 100 ML IV SCH ×3 (02:20→17:38)
[2020-05-10] MEDS: DEXMEDETOMIDINE HCL 200 MCG in SODIUM CHLORIDE 0.9% 50ML 48 ML IV PRN (03:26)
--- NOTE | 2020-05-10 03:40 | NUR ---
Pt was able to get a hold of the inline suction tubing on her ETT and pull her ETT out approx 3 cm. RN promptly notified the respiratory therapist. RT Diego arrived to room within 5 minutes to re-advance the ETT to its' proper position. During this time the Patient's vital signs remained stable and Pt did not show any s/s distress. ETT was advanced back to 24 cm at Lip. Vent settings remained unchanged. Patient has daily Chest X-ray already ordered to confirm position.
[2020-05-10 05:38] LABS: BASOPHILS % 0.3 % (0.0-1.0); EOSINOPHILS # (AUTO) 0.3 (0.0-0.4); EOSINOPHILS % 2.4 % (0.0-6.0); HEMATOCRIT 33.6 % (34.2-44.1); HEMOGLOBIN 10.7 g/dL (12.0-16.0); LYMPHOCYTES # (AUTO) 2.6 (1.0-3.2); LYMPHOCYTES % 20.2 % (18.0-39.1); MEAN CORPUSCULAR HEMOGLOBIN 29.3 pg (28-32); MEAN CORPUSCULAR HGB CONC 31.8 g/dL (31-35); MEAN CORPUSCULAR VOLUME 92.1 fL (81-99); MONOCYTES # (AUTO) 0.3 (0.2-0.8); MONOCYTES % 2.3 % (4.4-11.3); NEUTROPHILS # (AUTO) 9.2 (2.1-6.9); NEUTROPHILS % 71.8 % (38.7-80.0); PLATELET COUNT 231 x10e3/uL (140-360); RED BLOOD COUNT 3.65 x10e6/uL (3.6-5.1); RED CELL DISTRIBUTION WIDTH 13.4 % (11.7-14.4)
[2020-05-10 05:49] LABS: ALANINE AMINOTRANSFERASE 36 IU/L (0-55); ALBUMIN 2.6 g/dL (3.5-5.0); ALBUMIN/GLOBULIN RATIO 0.9 (0.8-2.0); ALKALINE PHOSPHATASE 109 IU/L (40-150); ANION GAP 13.3 mmol/L (8-16); BLOOD UREA NITROGEN 38 mg/dL (7-26); BUN/CREATININE RATIO 55 (6-25); CALCIUM 8.2 mg/dL (8.4-10.2); CARBON DIOXIDE 30 mmol/L (22-29); CHLORIDE 101 mmol/L (98-107); CREATININE, SERUM 0.69 mg/dL (0.57-1.11); EST GLOMERULAR FILTRATION RATE > 60 ML/MIN (60-); GLUCOSE 71 mg/dL (74-118); MAGNESIUM 2.1 MG/DL (1.3-2.1); PHOSPHORUS 2.9 MG/DL (2.3-4.7); POTASSIUM 4.3 mmol/L (3.5-5.1); SODIUM 140 mmol/L (136-145)
[2020-05-10 05:59] LABS: PROTHROMBIN TIME 13.8 seconds (11.9-14.5)
[2020-05-10] MEDS: MUPIROCIN 2% OINT 22 GM TUBE TOP SCH (08:07)
[2020-05-10] MEDS: BALSAM PERU/CASTOR OIL 60 GM OINT...G. TP SCH (08:07)
[2020-05-10] MEDS: EYE LUBRICANT OPTH OINT 3.5GM TUBE OP SCH (08:07)
--- NOTE | 2020-05-10 08:31 | Diagnostic Imaging Report ---
EXAMINATION: CHEST SINGLE (PORTABLE) INDICATION: ^ARDS, INTUBATED ^[id number] ^0445 ^Y. COMPARISON: 05/09/2020 FINDINGS: AP view TUBES and LINES: Endotracheal tube tip terminates of the mid thoracic trachea. There is a feeding tube which crosses below the left hemidiaphragm and is incompletely imaged. Right IJ central venous catheter tip terminates over the superior vena cava LUNGS: Redemonstration of patchy bilateral pulmonary passageways, and osteophyte change. There are small bilateral pleural effusions left greater than right, unchanged. No pneumothorax. HEART AND MEDIASTINUM: The cardiomediastinal silhouette is unremarkable. BONES AND SOFT TISSUES: No acute osseous lesion. Soft tissues are unremarkable. UPPER ABDOMEN: No free air under the diaphragm. IMPRESSION: No interval change. Signed by: Eloy Kovacs MD on 05/10/2020 8:28 AM
[2020-05-10] MEDS: ASPIRIN 81 MG CHEW TAB PO SCH (09:19)
[2020-05-10] MEDS: DEXAMETHASONE SOD PHOS 10 MG/1 ML VIAL IV SCH (09:19)
[2020-05-10] MEDS: LINEZOLID 600 MG/D5W 300ML 300 ML IV SCH ×2 (09:19→20:38)
[2020-05-10] MEDS: ASCORBIC ACID 500 MG TAB PO SCH ×2 (09:19→17:38)
[2020-05-10] MEDS: PANTOPRAZOLE 40 MG 10ML VIAL IV SCH (09:19)
[2020-05-10] MEDS: ZINC SULFATE 220 MG CAP PO SCH (09:19)
[2020-05-10 09:37] LABS: ABG HCO3 29 mmol/L (22-26); ABG PCO2 40 mmHg (35-45); ABG PH 7.46 (7.35-7.45); ABG PO2 55 mmHg (80-105)
--- NOTE | 2020-05-10 09:40 | NUR ---
Pt extubated at this time per MD order, on 11L high flow oxygen at this time.
--- NOTE | 2020-05-10 09:53 | Progress Note ---
DATE: SUBJECTIVE: The patient is currently on CPAP of 5 and pressure support of 8. She is breathing 25 times a minute with tidal volumes of 350 to 400 mL. She is not febrile. She is off Levophed. PHYSICAL EXAMINATION: VITAL SIGNS: The blood pressure is 107/54 and the saturation is 95%. She is on the above noted spontaneous breathing trial. She was on low-dose Precedex. She has an NG tube in place, but the feedings are held. She has an oral endotracheal tube. She has an IJ line. The site looks clean. HEART: She has regular rate and rhythm with normal S1, S2. LUNGS: Auscultation of lungs shows decreased breath sounds at the bases. There is no wheezing. ABDOMEN: Soft, nontender. There is no rebound or guarding. EXTREMITIES: Shows no leg edema or calf tenderness. There is no cyanosis, clubbing. SKIN: Shows no rashes. NEUROLOGICAL: Shows the patient to be following commands and arousable. LABORATORY DATA: BUN to creatinine ratio is 38 to 0.7. Other electrolytes are within normal limits. Albumin is 2.6. White blood cell count is 12.4 and hemoglobin is 10.7. The platelet count is 234. RADIOGRAPHIC DATA: Chest x-ray shows bilateral infiltrates with no interval change. IMPRESSION: 1. Acute respiratory failure. 2. COVID-19 and viral pneumonia. 3. Acute on chronic systolic congestive heart failure. 4. Acute kidney injury. 5. Diabetes. 6. Anemia. PLAN: 1. Repeat ABG and probable extubation. 2. Hold Precedex. 3. Complete dexamethasone. 4. Complete antibiotics. 5. Physical therapy. 6. Lovenox for DVT prophylaxis. Case discussed with nursing, Respiratory, Internal Medicine, Infectious Disease, administration, and family. Greater than 35 minutes in direct critical care time. MD NIRANJAN Artis/HARDIK /[id number]
[2020-05-10 10:39] LABS: LYMPHOCYTES % (MANUAL) 16 % (19-48); MONOCYTES % (MANUAL) 3 % (3.4-9.0); NEUTROPHILS % (MANUAL) 81 % (40-74); PLATELET ESTIMATE ADEQUATE; PLATELET MORPHOLOGY COMMENT FEW EDTA CLUMPING; RBC MORPHOLOGY COMMENT NORMAL
--- NOTE | 2020-05-10 14:24 | Progress Note ---
DATE: SUBJECTIVE: The patient is seen and evaluated. Available labs and notes reviewed. Discussed with the nurse. REVIEW OF SYSTEMS: Patient acute distress. Stated that she was cold, other than that no obvious acute finding. Discussed with the nurse. The patient remains on insulin drip on 11 L of high-flow. OBJECTIVE: VITAL SIGNS: Temperature is 98.7, pulse is 90, respiration 25, blood pressure 147/70. GENERAL: Awake, alert, responds appropriately. CV: S1 and S2. CHEST: Equal expansion. Decreased breath sounds. No acute distress. ABDOMEN: Soft, obese, nontender. HEENT: Moist. No pallor. No JVD. EXTREMITIES: No significant edema. Lower extremities severely weak. MEDICATIONS: Reviewed from ID point of view. Patient is on dexamethasone, meropenem, Zyvox, zinc sulfate, and vitamin C. LABORATORY STUDIES: White count of 12.8, hemoglobin 10.7, and platelet 231. Sodium 140, potassium 4.3, creatinine 0.6. Serology: Coronavirus PCR was positive on 04/30. Microbiology: No new microbiology studies available and oriented. The patient is successfully extubated, remains on 11 L of high-flow. ASSESSMENT: 1. Coronavirus disease - 19. 2. Respiratory failure-successful extubation. 3. Superimposed bacterial infection of the lung/pneumonia, currently on antibiotics. 4. Diabetes. 5. Anemia. 6. Obesity. 7. Hyperlipidemia. PLAN: Continue with antibiotics as mentioned above. Monitor platelets while the patient is on Zyvox. Continue with dexamethasone, ascorbic acid, zinc sulfate. Continue to monitor patient clinically and follow with the labs, overall seems improved. Please refer to chart for more information. Discussed with Dr. Hugo in details. Dictated by Mariusz Gonzalez PA-C (Al) Mariely Hugo MD /MODL /[id number]
[2020-05-10 17:21] LABS: ABG PCO2 40 mmHg (35-45); ABG PO2 178 mmHg (80-105)
[2020-05-10 17:22] LABS: ABG HCO3 31 mmol/L (22-26)
[2020-05-10] MEDS: INSULIN REGULAR, HUMAN 3ML VL 100 UNIT in SODIUM CHLORIDE 0.45% 100 ML 99 ML IV SCH ×2 (18:10)
--- NOTE | 2020-05-10 18:32 | NUR ---
ABG results called to Dr Welch, no new orders at this time.
[2020-05-10] MEDS: INSULIN GLARGINE 100 UNITS/ML VIAL SQ SCH (20:38)
[2020-05-11] VITALS (23 sets, daily range): BP systolic 102–161; BP diastolic 49–67
[2020-05-11] MEDS: MEROPENEM 1GM 100 ML IV SCH ×3 (03:14→18:12)
[2020-05-11 05:43] LABS: BASOPHILS # (AUTO) 0.1 (0.0-0.1); BASOPHILS % 0.3 % (0.0-1.0); EOSINOPHILS # (AUTO) 0.4 (0.0-0.4); EOSINOPHILS % 2.4 % (0.0-6.0); HEMATOCRIT 36.5 % (34.2-44.1); HEMOGLOBIN 11.6 g/dL (12.0-16.0); LYMPHOCYTES # (AUTO) 2.5 (1.0-3.2); LYMPHOCYTES % 15.6 % (18.0-39.1); MEAN CORPUSCULAR HEMOGLOBIN 29.1 pg (28-32); MEAN CORPUSCULAR HGB CONC 31.8 g/dL (31-35); MEAN CORPUSCULAR VOLUME 91.7 fL (81-99); MONOCYTES # (AUTO) 0.7 (0.2-0.8); MONOCYTES % 4.5 % (4.4-11.3); NEUTROPHILS % 75.3 % (38.7-80.0); PLATELET COUNT 284 x10e3/uL (140-360); RED BLOOD COUNT 3.98 x10e6/uL (3.6-5.1); RED CELL DISTRIBUTION WIDTH 13.6 % (11.7-14.4)
[2020-05-11 05:52] LABS: ALANINE AMINOTRANSFERASE 42 IU/L (0-55); ALBUMIN 2.7 g/dL (3.5-5.0); ALBUMIN/GLOBULIN RATIO 0.8 (0.8-2.0); ALKALINE PHOSPHATASE 136 IU/L (40-150); ANION GAP 12.4 mmol/L (8-16); BLOOD UREA NITROGEN 33 mg/dL (7-26); BUN/CREATININE RATIO 45 (6-25); CALCIUM 7.9 mg/dL (8.4-10.2); CARBON DIOXIDE 30 mmol/L (22-29); CHLORIDE 101 mmol/L (98-107); CREATININE, SERUM 0.74 mg/dL (0.57-1.11); EST GLOMERULAR FILTRATION RATE > 60 ML/MIN (60-); GLUCOSE 67 mg/dL (74-118); POTASSIUM 4.4 mmol/L (3.5-5.1); SODIUM 139 mmol/L (136-145)
--- NOTE | 2020-05-11 06:52 | NUR ---
Blood sugar checked with same blood sample that was sent to lab, glucometer resulted 110, as her previous sugars were 110 & 119 throughout night. Blood sugar resulted on BMP said 67. Insulin left at 1 unit/hr and tube feedings are running due to glucometer reading the same as previous sugars.
--- NOTE | 2020-05-11 08:24 | Diagnostic Imaging Report ---
EXAMINATION: CHEST SINGLE (PORTABLE) INDICATION: ARDS COMPARISON: Multiple prior chest radiograph, most recently of 05/10/2020 FINDINGS: LINES/TUBES:Interval removal of endotracheal tube. Feeding tube projects below the diaphragm with tip not visualized. Right IJ central venous catheter unchanged. LUNGS:The lungs are moderately inflated. Unchanged bilateral multifocal lower lung predominant opacities. PLEURA:No pleural effusion or pneumothorax. MEDIASTINUM:The cardiomediastinal silhouette appears unchanged in size and shape. BONES/SOFT TISSUES:No acute osseous injury. ABDOMEN:No free air under the diaphragm. IMPRESSION: Interval extubation. Otherwise, no significant interval change. Signed by: Graciela Henning MD on 05/11/2020 8:20 AM
[2020-05-11] MEDS: EYE LUBRICANT OPTH OINT 3.5GM TUBE OP SCH (09:36)
[2020-05-11] MEDS: ZINC SULFATE 220 MG CAP PO SCH (09:36)
[2020-05-11] MEDS: ASCORBIC ACID 500 MG TAB PO SCH ×2 (09:36→18:12)
[2020-05-11] MEDS: LINEZOLID 600 MG/D5W 300ML 300 ML IV SCH ×2 (09:36→21:09)
[2020-05-11] MEDS: BALSAM PERU/CASTOR OIL 60 GM OINT...G. TP SCH (09:36)
[2020-05-11] MEDS: ASPIRIN 81 MG CHEW TAB PO SCH (09:36)
[2020-05-11] MEDS: PANTOPRAZOLE 40 MG 10ML VIAL IV SCH (09:36)
--- NOTE | 2020-05-11 11:25 | NUR ---
Received order for LTAC eval. Called and spoke to pt's daughter Kate Velasquez [phone]. Discussed LTAC and locations. She states she will speak to her family and will call CM back with decision.
[2020-05-11 12:27] LABS: LYMPHOCYTES % (MANUAL) 14 % (19-48); MONOCYTES % (MANUAL) 2 % (3.4-9.0); NEUTROPHILS % (MANUAL) 84 % (40-74)
--- NOTE | 2020-05-11 12:36 | NUR ---
ST NOTE: Acknowledge BSE order, pt intubated from 04/30 - 05/10. Will complete BSE on 05/12 to give her 48 hours post extubation for reducing swelling and improved success with swallow function. Handoff to XAVIER Araya
--- NOTE | 2020-05-11 12:39 | Progress Note ---
DATE: SUBJECTIVE: The patient is now on 4 L of oxygen. She is saturating 98%. She still has a nasogastric feeding tube in place. She is still on an insulin drip at 102 units an hour. PHYSICAL EXAMINATION: VITAL SIGNS: The blood pressure is 124/67 and the saturation is 98%. HEENT: Shows no facial swelling or erythema. CARDIAC: Reveals regular rate and rhythm with normal S1 and S2. LUNGS: Auscultation of lungs reveals rhonchorous breath sounds bilaterally. There is no wheezing. ABDOMEN: Soft and nontender. There is no rebound or guarding. EXTREMITIES: Shows no leg edema. There is some sacral breakdown. She also has some breakdown on her area and anterior neck from being prone. LABORATORY DATA: BUN to creatinine ratio is normal. Other electrolytes are within normal limits. White blood cell count is 15.9 and hemoglobin is 11.6. Platelet count is 284. IMPRESSION: 1. Dnlfr-ok-yilwxzk respiratory failure. 2. Jofrr-ew-ghizahm systolic congestive heart failure. 3. COVID-19 and viral pneumonia. 4. Acute kidney injury. 5. Diabetes. PLAN: 1. Continue enteral feedings with speech therapy to evaluate. 2. Complete antibiotics. 3. Complete dexamethasone. 4. Continue Lovenox. 5. Physical therapy. 6. Wound Care. Ayush Welch MD [facility]/MODL /[id number]
--- NOTE | 2020-05-11 14:39 | Progress Note ---
DATE: SUBJECTIVE: The patient is seen and evaluated. Discussed with the nurse. No new events. The patient remains on 6 L of O2 nasal cannula and seems to be comfortable with saturation level of 95% to 99%. PHYSICAL EXAMINATION: VITAL SIGNS: Temperature 99.4, pulse 96, respiration 24, and blood pressure 124/67. GENERAL: Alert and oriented. No acute distress. CV : S1 and S2. CHEST: Equal expansion. Decreased breath sounds. No acute distress. ABDOMEN: Soft and nontender. No distention. HEENT: Moist. No pallor. No JVD. EXTREMITIES: Weak. No significant edema. MEDICATIONS: Reviewed and from ID point of view, the patient is on meropenem, Zyvox, zinc sulfate, and vitamin C. LABORATORY STUDIES: White count of 15.98, hemoglobin 11.6, and platelet 284. Sodium 139, potassium 4.4, and creatinine 0.74. MICROBIOLOGY: Blood culture 04/20, negative. No new cultures available. RADIOLOGY STUDIES: Chest x-ray from today showed interval extubation, otherwise no significant interval changes. ASSESSMENT AND PLAN: 1. COVID-19 infection. 2. Respiratory failure-resolved. Successful extubation. 3. Superimposed bacterial infection of the lung/pneumonia. 4. Diabetes. 5. Leukocytosis. 6. Hyperlipidemia. 7. Obesity. 8. Recheck CBC for tomorrow. Remains on Zyvox and Merrem. Also on zinc sulfate and ascorbic acid. Monitor the patient clinically and follow with the labs. Clinically, no acute distress. Dictated by Mariusz Gonzalez PA-C (Al) Mariely Hugo MD /MODL /[id number]
[2020-05-11] MEDS ORDERED: DEXTROSE 50% SYRINGE 50 ML IV PRN (19:00)
--- NOTE | 2020-05-11 20:30 | NUR ---
Pt transferred to Covid unit room 182 via bed. Report given to XAVIER Alves. All belongings transferred with patient. Pt on telemetry and 4L NC.
[2020-05-11] MEDS: INSULIN GLARGINE 100 UNITS/ML VIAL SQ SCH (21:00)
--- NOTE | 2020-05-11 21:00 | NUR ---
Received patient from ICU. NGT to right nares intact. Rectal tube in place. Briones draining to yellowish urine. Psatient is alert and oreinted. Call light within reached.
[2020-05-11] MEDS ORDERED: SODIUM CHLORIDE 0.9% 250ML 250 ML ONE (21:05)
[2020-05-11] MEDS: INSULIN LISPRO 100 UNIT/1 ML 3ML VIAL SQ SCH (22:00)
[2020-05-12] VITALS (7 sets, daily range): BP systolic 130–159; BP diastolic 66–122
--- NOTE | 2020-05-12 01:26 | Progress Note ---
DATE: 05/11/2020 Cardiology Progress Note SUBJECTIVE: No major events. OBJECTIVE: VITAL SIGNS: Temperature afebrile, pulse 62, respiratory rate 26, blood pressure 107/46, saturating 97% on 4 L nasal cannula. The patient was not examined. INPATIENT MEDICATIONS: Reviewed. LABORATORY DATA: Reviewed. TELEMETRY DATA: Reviewed, shows normal sinus rhythm. ASSESSMENT/PLAN: 1. Acute hypoxemic respiratory failure. 2. Coronavirus disease-2019 pneumonia. 3. Paroxysmal atrial fibrillation, atrial flutter, currently in sinus rhythm. 4. Type 2 myocardial infarction. 5. Coronary artery disease, status post prior left anterior descending and left circumflex stent. 6. Qhlcv-rv-citjqry systolic congestive heart failure. RECOMMENDATIONS: Continue current cardiovascular medications. The patient is stable from cardiovascular standpoint. We will continue to manage volume status as needed. MD ZOHRA Tolbert/MODL /[id number]
[2020-05-12] MEDS: MEROPENEM 1GM 100 ML IV SCH ×3 (01:36→17:36)
[2020-05-12] MEDS: INSULIN LISPRO 100 UNIT/1 ML 3ML VIAL SQ SCH ×6 (01:37→21:54)
[2020-05-12 06:51] LABS: BASOPHILS % 0.2 % (0.0-1.0); EOSINOPHILS # (AUTO) 0.5 (0.0-0.4); EOSINOPHILS % 3.7 % (0.0-6.0); HEMATOCRIT 36.3 % (34.2-44.1); HEMOGLOBIN 11.4 g/dL (12.0-16.0); LYMPHOCYTES # (AUTO) 1.6 (1.0-3.2); MEAN CORPUSCULAR HEMOGLOBIN 29.3 pg (28-32); MEAN CORPUSCULAR HGB CONC 31.4 g/dL (31-35); MEAN CORPUSCULAR VOLUME 93.3 fL (81-99); MONOCYTES # (AUTO) 0.7 (0.2-0.8); MONOCYTES % 4.5 % (4.4-11.3); NEUTROPHILS # (AUTO) 11.6 (2.1-6.9); NEUTROPHILS % 79.6 % (38.7-80.0); PLATELET COUNT 281 x10e3/uL (140-360); RED BLOOD COUNT 3.89 x10e6/uL (3.6-5.1); RED CELL DISTRIBUTION WIDTH 13.8 % (11.7-14.4)
--- NOTE | 2020-05-12 07:00 | NUR ---
SHIFT REPORT COMPLETED WITH OFF GOING NIGHT NURSE. PATIENT IN STABLE CONDITION, NO S/S OF DISTRESS NOTED. NO PAIN VOICED. TELEMETRY APPLIED. IV SITE ASYMPTOMATIC AND PATENT, TRANSPARENT DRESSING C/D/I. MARQUEZ APPLIED AND PATENT DRAINING CLEAR YELLOW URINE INTO THE DRAINAGE BAG. DOFF APPLIED. BED IN LOWEST POSITION AND LOCKED. CALL LIGHT WITHIN REACH.
[2020-05-12 07:01] LABS: ALANINE AMINOTRANSFERASE 42 IU/L (0-55); ALBUMIN 2.5 g/dL (3.5-5.0); ALBUMIN/GLOBULIN RATIO 0.8 (0.8-2.0); ALKALINE PHOSPHATASE 140 IU/L (40-150); ANION GAP 12.7 mmol/L (8-16); BLOOD UREA NITROGEN 31 mg/dL (7-26); BUN/CREATININE RATIO 43 (6-25); CARBON DIOXIDE 29 mmol/L (22-29); CHLORIDE 102 mmol/L (98-107); CREATININE, SERUM 0.72 mg/dL (0.57-1.11); EST GLOMERULAR FILTRATION RATE > 60 ML/MIN (60-); GLUCOSE 116 mg/dL (74-118); MAGNESIUM 2.1 MG/DL (1.3-2.1); PHOSPHORUS 3.2 MG/DL (2.3-4.7); POTASSIUM 4.7 mmol/L (3.5-5.1); SODIUM 139 mmol/L (136-145)
[2020-05-12 07:10] LABS: INR 1.03; PROTHROMBIN TIME 14.1 seconds (11.9-14.5)
--- NOTE | 2020-05-12 08:01 | Diagnostic Imaging Report ---
EXAMINATION: CHEST SINGLE (PORTABLE) INDICATION: ^ARDS, INTUBATED ^[id number] ^0600 ^Y COMPARISON: 05/11/2020 FINDINGS: AP view TUBES and LINES: Stable right adjacent to the venous catheter and infradiaphragmatic enteric tube. LUNGS: Lungs are well inflated. Stable drym-pw-jaxfxpxl bilateral, left greater than right, interstitial opacities. PLEURA: No pleural effusion or pneumothorax. HEART AND MEDIASTINUM: The cardiomediastinal silhouette is unremarkable.. BONES AND SOFT TISSUES: No acute osseous lesion. Soft tissues are unremarkable. UPPER ABDOMEN: No free air under the diaphragm. IMPRESSION: Stable bilateral vqsu-jp-trtdeaae viral pneumonia with likely superimposed ARDS. Signed by: Dr. Ember Chen M.D. on 05/12/2020 7:58 AM
[2020-05-12] MEDS: ASCORBIC ACID 500 MG TAB PO SCH ×2 (09:00→17:36)
[2020-05-12] MEDS: ZINC SULFATE 220 MG CAP PO SCH (09:00)
[2020-05-12] MEDS: BALSAM PERU/CASTOR OIL 60 GM OINT...G. TP SCH (09:00)
[2020-05-12] MEDS: ASPIRIN 81 MG CHEW TAB PO SCH (09:00)
[2020-05-12] MEDS: LINEZOLID 600 MG/D5W 300ML 300 ML IV SCH ×2 (09:00→21:33)
[2020-05-12] MEDS: EYE LUBRICANT OPTH OINT 3.5GM TUBE OP SCH (09:00)
[2020-05-12] MEDS: PANTOPRAZOLE 40 MG 10ML VIAL IV SCH (09:00)
--- NOTE | 2020-05-12 15:09 | NUR ---
WOUND CARE FOLLOW UP CONSULT FOR 69 YO FEMALE ADMITTED TO [facility] WITH A PRESENT HX OF COVID-19, RESPIRATORY FAILURE, SEPTIC. MOISES 8 ON STRICT PUP AND INTERVENTIONS SURFACE: ALTERNATING PRESSURE LABS: WBC- 14.07 HGB- 11.4 ALBUMIN/GLOBIN 0.8 GLUCOSE -116 SPUTUM: SHWETHA ALBICANS. SKIN ASSESSMENT COMPLETE PATIENT PRESENTS WITH 1) MULTIPLE HEALING BRUISES TO BILATERAL UPPER RELATED TO VENIPUNCTURES. 2) MOISTURE RELATED DENUDED SKIN TO ANTERIOR NECK MEASURING 8 CM X 6.5 CM X 0.1 CM. MINIMAL SEROSANGUINEOUS DRAINAGE PRESENT. 3) MOISTURE LOOSE STOOL RELATED DENUDED AREA TO SACRAL GLUTEAL FOLD, MEASURING 7 CM X 0.5 CM X 0.1 CM; MINIMAL SEROSANGUINEOUS DRAINAGE. RECOMMENDATIONS NURSING TO APPLY A THIN FILM OF VENELEX TO DENUDED SKIN TO ANTERIOR NECK AND TO APPLY A 4X4 GAUZE IN PLACE DAILY. NURSING TO APPLY VENELEX TO DENUDED AREA TO SACRAL GLUTEAL FOLD, COVER WITH ALLEVYN FOAM DAILY. NURSING TO CONTINUE TO MONITOR PATIENT AND KEEP SKIN CLEAN AND FREE FROM STOOL OR IRRITATING MOISTURE AND CONTINUE TO FOLLOW STRICT PUP INTERVENTIONS DAILY. NURSING TO ENCOURAGE PT TO SELF REPOSITION IN BED NEEDED. NURSING TO CONTINUE TO OFFLOAD FEET AND HEELS AT ALL TIMES WITH PILLOW SUSPENSION WHEN IN BED. NURSING TO ASSIST PT OUT OF BED FOR MEALS AND NEEDED. NURSING TO CONTINUE TO ASSIST WITH PT NUTRITIONAL SUPPLEMENTS TO ENSURE PROPER REQUIREMENTS FOR HEALING. NURSING TO RE- CONSULT WOUND CARE NEEDED. Addendum: 05/12/20 at 1510 by Nadia Padilla RN Amended: Links added.
--- NOTE | 2020-05-12 15:33 | NUR ---
CALL TO PT'S DTR, FACUNDO Neil @ [phone]. GETTING BUSY SIGNAL. WILL F/U
--- NOTE | 2020-05-12 16:55 | NUR ---
Nutrition Intervention Note RD Recommendation(s) for Physician: - Continue Vital AF 1.2. Recommend increasing towards a goal rate of 45 ml/hr (provides 1296 kcal and 81 gm protein) - Water flushes per MD Plan of Care: RD following, TF rec's, monitoring for tolerance and adequacy Nutrition reason for involvement: follow up RD Assessment 05/12: Follow up. Pt was extubated on 05/10. Pts tube feed is currently at 30 mL/hr per chart. Speech therapy evaluated pts swallowing ability and recommend pt remain NPO with NG feeds at this time. Recommendations provided. Will continue to monitor. 05/08: Follow up. Pt remains intubated and sedated. Tube feeding is currently at 20 mL/hr. Recommendations provided. Will continue to monitor. 05/03: 69 YOF admitted for respiratory failure, septic shock, and covid-19. Pt evaluated today per intubation and pending TF. Pt remains intubated and sedated with 1 low dose pressor. Pt required proning yesterday. TF pending initiation. Pt appears well nourished. Chart reviewed. TF rec's provided. Will continue to monitor. Principal Problems/Diagnoses: covid-19, respiratory failure, septic shock PMH: CHF, CKD, CAD, DM GI: last recorded BM 05/12 x 2 Skin: sacrum stage II PU Labs: 05/12: Na 139, K 4.7, BUN 31, Cr 0.72, Glu 116, Ca 8.0 05/08: Na 142, K 4.3, BUN 58, Cr 0.83, Glu 89, Mg 2.4 05/03: Na 148, K 3.9, BUN 37, Cr 1.6, Gluc 147, POC Gluc 91-117 Meds: insulin, antibiotics, zinc sulfae, vitamin C, protonix, dexmedetomidine, norepinephrine, insulin Ht: 62 in Wt: 219 lbs (05/11) 232 lbs (05/08) 226 lb (05/03) BMI: 40.1 kg/m2 (using weight of 219 lbs) IBW: 110 lb Malnutrition Evaluation (05/03/20) The patient does not meet criteria for a specified degree of malnutrition at this time. Will re-evaluate at follow-up as appropriate. Unable to assess per current isolation precautions Nutrition Prescription (Diet Order): Vital AF at 20 ml/hr running at 30 mL/hr per documentation in chart Estimated Nutritional Needs: 4380-7220 calories/day (22-25 kcal/kg IBW) 75-100 g protein/day (1.5-2 g pro/kg IBW) Diet Adequacy: Not meeting calorie needs, Not meeting protein needs Diet Tolerance: tolerating TF Diet Education Needs Assessment: Diet education not indicated Nutrition Care Level: moderate Nutrition Diagnosis: Inadequate energy and protein intake related to decreased ability to consume sufficient energy as evidenced by pt requiring EN. Goal: Patient will meet 75-100% of estimated needs by follow up Progress: goal not met Interventions: - Composition, Rate, Route, Recommended Modifications Monitoring/Evaluation: - Total energy intake, Total protein intake, Formula/Solution, Weight change Signed: Salima Burr RD, LD
--- NOTE | 2020-05-12 16:55 | Progress Note ---
DATE: SUBJECTIVE: The patient is transferred out of the Intensive Care Unit. She is down to 4 L of oxygen. T-max was 100.4. PHYSICAL EXAMINATION: VITAL SIGNS: The blood pressure is 140/81, saturation is 95% on 4 L. HEENT: No facial swelling or erythema. CARDIAC: Regular rate and rhythm with normal S1, S2. LUNGS: Auscultation of lungs reveals rhonchorous breath sounds bilaterally. There is no wheezing. ABDOMEN: Soft, nontender. There is no rebound or guarding. EXTREMITIES: 1 to 2+ leg edema. LABORATORY DATA: White blood cell count is 14.5 and hemoglobin is 11.4. The platelet count is 281. BUN to creatinine ratio is 31 to 0.72. Other electrolytes are within normal limits. IMPRESSION: 1. Acute on chronic respiratory failure. 2. Acute on chronic systolic congestive heart failure. 3. coronavirus disease-19 and viral pneumonia. 4. Acute kidney injury. 5. Diabetes. PLAN: 1. Continue enteral feedings. 2. Speech therapy to re-evaluate. 3. Complete antibiotics. 4. Lovenox. 5. Wound care. 6. Physical therapy. Ayush Welch MD [facility]/MODL /[id number]
--- NOTE | 2020-05-12 19:34 | NUR ---
SHIFT REPORT COMPLETED WITH ON COMING NIGHT NURSE. PATIENT IN STABLE CONDITION, NO S/S OF DISTRESS NOTED. NO PAIN VOICED. TELEMETRY APPLIED. IV SITE ASYMPTOMATIC AND PATENT, TRANSPARENT DRESSING C/D/I. MARQUEZ APPLIED AND PATENT DRAINING CLEAR YELLOW URINE INTO THE DRAINAGE BAG. DOFF APPLIED. NG TUBE FEEDING RUNNING. BED IN LOWEST POSITION AND LOCKED. CALL LIGHT WITHIN REACH.
[2020-05-12] MEDS: INSULIN GLARGINE 100 UNITS/ML VIAL SQ SCH (21:00)
--- NOTE | 2020-05-12 23:31 | Progress Note ---
DATE: 05/12/2020 Cardiology Progress Note SUBJECTIVE: The patient was discussed with nursing staff. No events were reported. Nurse reports the patient is somnolent. OBJECTIVE: VITAL SIGNS: Temperature 102.4 degrees, pulse 85, respiratory rate 19, blood pressure 134/69, and oxygen saturation 99% on 4 L nasal cannula. The patient was not examined due to isolation for COVID-19. CARDIAC MEDICATIONS: Aspirin 81 mg p.o. daily. LABORATORY DATA: WBC 14.57, hemoglobin 11.4, hematocrit 36.3, platelets 281. Sodium 139, potassium 4.7, chloride 102, CO2 of 29, BUN 31, creatinine 0.72. TELEMETRY: Personally reviewed and interpreted, revealing normal sinus rhythm with PVCs. IMPRESSION: 1. Acute hypoxic respiratory failure. 2. Coronavirus disease-19 pneumonia. 3. Paroxysmal atrial fibrillation and atrial flutter, currently sinus rhythm. 4. Type 2 myocardial infarction secondary to above. 5. Coronary artery disease, status post prior LAD and circumflex stents. 6. Acute on chronic systolic heart failure. RECOMMENDATIONS: Continue current cardiac medications. Aim to keep the patient net even. Resume atorvastatin as LFTs have improved. If blood pressure tolerates, we will also add low-dose metoprolol. Continue supportive care. Management of COVID-19 per Infectious Disease. Thank you for this consult. We will continue to follow. Khloe Hayward MD [facility]/MODL /[id number]
[2020-05-13] VITALS (8 sets, daily range): BP systolic 100–133; BP diastolic 54–70
[2020-05-13] MEDS: MEROPENEM 1GM 100 ML IV SCH (01:30)
--- NOTE | 2020-05-13 01:40 | NUR ---
PERIOCARE PROVIDED. MARQUEZ CARE PROVIDED VIA ANIA SOAP WIPES. DAILY WOUND CARE PROVIDED PER MD ORDER. TOLERATED PROCEDURES WELL.
[2020-05-13] MEDS: INSULIN LISPRO 100 UNIT/1 ML 3ML VIAL SQ SCH ×6 (02:00→20:48)
--- NOTE | 2020-05-13 02:25 | NUR ---
CALLED RESPIRATORY FOR EKG. AWARE OF A FLUTTER AND HR 163.
--- NOTE | 2020-05-13 03:02 | NUR ---
SPOKE TO MD GONZALEZ REGARDING EKG RESULTS. NEW ORDERS RECEIVED.
[2020-05-13] MEDS ORDERED: METOPROLOL TARTRATE INJ 1 MG/ML VIAL IV PRN (03:15)
--- NOTE | 2020-05-13 03:34 | NUR ---
SPOKE TO MD GONZALEZ REGARDING PT C/O CHEST PAIN.
[2020-05-13 04:11] LABS: BASOPHILS % 0.2 % (0.0-1.0); EOSINOPHILS # (AUTO) 0.2 (0.0-0.4); EOSINOPHILS % 1.4 % (0.0-6.0); HEMATOCRIT 34.8 % (34.2-44.1); HEMOGLOBIN 11.2 g/dL (12.0-16.0); LYMPHOCYTES # (AUTO) 1.5 (1.0-3.2); LYMPHOCYTES % 10.3 % (18.0-39.1); MEAN CORPUSCULAR HGB CONC 32.2 g/dL (31-35); MEAN CORPUSCULAR VOLUME 93.3 fL (81-99); MONOCYTES # (AUTO) 0.8 (0.2-0.8); MONOCYTES % 5.3 % (4.4-11.3); NEUTROPHILS # (AUTO) 11.9 (2.1-6.9); NEUTROPHILS % 82.2 % (38.7-80.0); PLATELET COUNT 252 x10e3/uL (140-360); RED BLOOD COUNT 3.73 x10e6/uL (3.6-5.1); RED CELL DISTRIBUTION WIDTH 13.8 % (11.7-14.4)
--- NOTE | 2020-05-13 04:15 | NUR ---
CENTRAL LINE CARE PROVIDED. DAILY CHG BATH GIVEN. NEW PORTS AND SALINE FLUSHES PROVIDED.
[2020-05-13 04:33] LABS: ALANINE AMINOTRANSFERASE 36 IU/L (0-55); ALBUMIN 2.7 g/dL (3.5-5.0); ALBUMIN/GLOBULIN RATIO 0.8 (0.8-2.0); ALKALINE PHOSPHATASE 122 IU/L (40-150); ANION GAP 13.6 mmol/L (8-16); BLOOD UREA NITROGEN 28 mg/dL (7-26); BUN/CREATININE RATIO 39 (6-25); CALCIUM 8.3 mg/dL (8.4-10.2); CARBON DIOXIDE 29 mmol/L (22-29); CHLORIDE 101 mmol/L (98-107); CREATININE, SERUM 0.72 mg/dL (0.57-1.11); EST GLOMERULAR FILTRATION RATE > 60 ML/MIN (60-); GLUCOSE 117 mg/dL (74-118); POTASSIUM 4.6 mmol/L (3.5-5.1); SODIUM 139 mmol/L (136-145)
[2020-05-13 04:49] LABS: CHOL/HDL RATIO 6.5 (3.0-3.6)
--- NOTE | 2020-05-13 06:55 | NUR ---
SPOKE TO MD GONZALEZ REGARDING C/O CHEST PAIN AND TELE READING OF SR 98 W/ PVCS. NEW ORDERS RECEIVED.
[2020-05-13] MEDS ORDERED: NITROGLYCERIN 0.4 MG SUBL SL PRN (07:00)
--- NOTE | 2020-05-13 07:11 | Diagnostic Imaging Report ---
EXAMINATION: CHEST SINGLE (PORTABLE) INDICATION: ^resp failure ^[id number] ^0540 COMPARISON: 05/12/2020 FINDINGS: AP view TUBES and LINES: Unchanged nasogastric tube. LUNGS: Unchanged diffuse pulmonary airspace disease PLEURA: No pleural effusion or pneumothorax. HEART AND MEDIASTINUM: The cardiomediastinal silhouette is unchanged. BONES AND SOFT TISSUES: No acute osseous lesion. Soft tissues are unremarkable. UPPER ABDOMEN: No free air under the diaphragm. IMPRESSION: Stable exam. Unchanged diffuse pulmonary airspace disease consistent with viral pneumonia. Signed by: Shai Crystal MD on 05/13/2020 7:07 AM
--- NOTE | 2020-05-13 07:15 | NUR ---
REPORT GIVEN TO DAYSHIFT NURSE. RESTING IN BED. ALERT AND ORIENTED. NO SIGNS IV INFILTRATION. BED LOCKED AND IN LOW POSITION. CALL LIGHT WITHIN REACH. BED ALARM ACTIVATED.
[2020-05-13] MEDS: ASCORBIC ACID 500 MG TAB PO SCH ×2 (10:43→17:10)
[2020-05-13] MEDS: ASPIRIN 81 MG CHEW TAB PO SCH (10:43)
[2020-05-13] MEDS: BALSAM PERU/CASTOR OIL 60 GM OINT...G. TP SCH (10:43)
[2020-05-13] MEDS: EYE LUBRICANT OPTH OINT 3.5GM TUBE OP SCH (10:43)
[2020-05-13] MEDS: ZINC SULFATE 220 MG CAP PO SCH (10:43)
[2020-05-13] MEDS: PANTOPRAZOLE 40 MG 10ML VIAL IV SCH (10:43)
--- NOTE | 2020-05-13 12:53 | Progress Note ---
DATE: Pulmonary progress note. SUBJECTIVE: The patient is on less oxygen. She still has an NG tube for feeding. She has been getting physical therapy. PHYSICAL EXAMINATION: VITAL SIGNS: Blood pressure is 123/66, saturations 99% on 2 L, pulse is 110, blood pressure is 123/66. HEENT: Shows nasogastric feeding tube. CARDIAC: Reveals regular rate and rhythm with normal S1, S2. LUNGS: Auscultation of lungs reveals rhonchorous breath sounds bilaterally. There is no wheezing. ABDOMEN: Soft and nontender. There is no rebound or guarding. EXTREMITIES: Shows no leg edema or calf tenderness. There is no cyanosis or clubbing. SKIN: Shows no rashes. LABORATORY DATA: White blood cell count is 14.4, hemoglobin 11.2, and the platelet count is 252. The BUN to creatinine ratio is 32 to 0.72. Other electrolytes are within normal limits. Albumin is 2.7. RADIOGRAPHIC DATA: Chest x-ray shows stable examination with bilateral infiltrates. IMPRESSION: 1. Viral pneumonia and COVID-19 infection. 2. Acute on chronic systolic congestive heart failure. 3. Acute kidney injury. 4. Diabetes. 5. Myopathy. PLAN: 1. Continue physical therapy. 2. Continue to follow recommendations of speech pathology. 3. Continue to wean oxygen. 4. Continue medical regimen with insulin. 5. Continue current cardiac regimen. 6. Discussed disposition with Dr. Espinoza and Outboard System Operator. Ayush Welch MD [facility]/MODL /[id number]
[2020-05-13] MEDS: AMIODARONE HCL 200 MG TAB PO SCH ×2 (14:45→17:10)
--- NOTE | 2020-05-13 20:23 | NUR ---
Tube feedings at 60 mls/hr. Patient awake and sitting up in bed, no s/s of distress at this time. Briones and rectal tube draining to gravity. Family currently visiting patient through window. All safety measures in place.
[2020-05-13] MEDS: INSULIN GLARGINE 100 UNITS/ML VIAL SQ SCH (20:49)
[2020-05-14] VITALS (8 sets, daily range): BP systolic 115–155; BP diastolic 48–94
--- NOTE | 2020-05-14 00:50 | Progress Note ---
DATE: 04/30/2020 Cardiology Progress Note SUBJECTIVE: The patient developed atrial fibrillation with rapid ventricular response overnight as well as episode of chest pain. She was given IV metoprolol with conversion to normal sinus rhythm. Per discussion with nursing staff, the patient's chest pain has resolved. OBJECTIVE: VITAL SIGNS: Temperature 98.5 degrees, pulse 113, respiratory rate 18, blood pressure 132/66, oxygen saturation 99% on 3 L nasal cannula. The patient was not examined due to isolation for COVID-19. CARDIAC MEDICATIONS: Amiodarone 200 mg p.o. b.i.d. and aspirin 81 mg p.o. daily. LABORATORY DATA: WBC 139, potassium 4.6, chloride 101, CO2 of 29, BUN 28, creatinine 0.72. Troponin 0.075. Cholesterol 117, LDL 68, HDL 18. TELEMETRY: Personally reviewed and interpreted by me revealing normal sinus rhythm and PVCs, episode of atrial fibrillation with rapid ventricular response was observed overnight. IMPRESSION: 1. Atrial fibrillation and flutter with rapid ventricular response currently sinus rhythm. 2. Acute hypoxic respiratory failure. 3. COVID-19 pneumonia. 4. Type 2 myocardial infarction secondary to above. 5. Coronary artery disease, status post prior LAD and circumflex stents. 6. Zcmmu-au-ncxhsou systolic heart failure. RECOMMENDATIONS: Start amiodarone in an attempt to maintain patient in sinus rhythm. Resume atorvastatin. No metoprolol at this time due to hypotension overnight after administration of IV metoprolol. Continue supportive care. Management of COVID-19 per Infectious Disease. Continue current cardiac medications. Thank you for this consult. We will continue to follow. Khloe Hayward MD [facility]/MODL /[id number] JOSE JUAN
[2020-05-14] MEDS: INSULIN LISPRO 100 UNIT/1 ML 3ML VIAL SQ SCH ×6 (01:53→21:06)
[2020-05-14 05:42] LABS: BASOPHILS % 0.2 % (0.0-1.0); EOSINOPHILS # (AUTO) 0.5 (0.0-0.4); HEMATOCRIT 32.3 % (34.2-44.1); HEMOGLOBIN 10.2 g/dL (12.0-16.0); LYMPHOCYTES # (AUTO) 1.5 (1.0-3.2); LYMPHOCYTES % 13.4 % (18.0-39.1); MEAN CORPUSCULAR HEMOGLOBIN 29.6 pg (28-32); MEAN CORPUSCULAR HGB CONC 31.6 g/dL (31-35); MEAN CORPUSCULAR VOLUME 93.6 fL (81-99); MONOCYTES # (AUTO) 0.8 (0.2-0.8); MONOCYTES % 6.7 % (4.4-11.3); NEUTROPHILS # (AUTO) 8.5 (2.1-6.9); NEUTROPHILS % 75.3 % (38.7-80.0); PLATELET COUNT 234 x10e3/uL (140-360); RED BLOOD COUNT 3.45 x10e6/uL (3.6-5.1); RED CELL DISTRIBUTION WIDTH 14.1 % (11.7-14.4)
[2020-05-14 06:21] LABS: ALANINE AMINOTRANSFERASE 31 IU/L (0-55); ALBUMIN 2.4 g/dL (3.5-5.0); ALBUMIN/GLOBULIN RATIO 0.7 (0.8-2.0); ALKALINE PHOSPHATASE 113 IU/L (40-150); ANION GAP 10.6 mmol/L (8-16); BLOOD UREA NITROGEN 28 mg/dL (7-26); BUN/CREATININE RATIO 44 (6-25); CARBON DIOXIDE 32 mmol/L (22-29); CHLORIDE 103 mmol/L (98-107); CREATININE, SERUM 0.63 mg/dL (0.57-1.11); EST GLOMERULAR FILTRATION RATE > 60 ML/MIN (60-); GLUCOSE 102 mg/dL (74-118); POTASSIUM 4.6 mmol/L (3.5-5.1); SODIUM 141 mmol/L (136-145)
--- NOTE | 2020-05-14 06:54 | Diagnostic Imaging Report ---
EXAMINATION: CHEST SINGLE (PORTABLE) INDICATION: ^ARDS, INTUBATED ^Y COMPARISON: 05/13/2020 FINDINGS: AP view TUBES and LINES: Unchanged nasogastric tube. Unchanged right IJ central venous line. LUNGS: Unchanged diffuse interstitial and alveolar pulmonary airspace disease. PLEURA: No pleural effusion or pneumothorax. HEART AND MEDIASTINUM: The cardiomediastinal silhouette is unchanged. BONES AND SOFT TISSUES: No acute osseous lesion. Soft tissues are unremarkable. UPPER ABDOMEN: No free air under the diaphragm. IMPRESSION: Stable exam. Unchanged pulmonary airspace disease consistent with viral pneumonia. Signed by: Shai Crystal MD on 05/14/2020 6:51 AM
[2020-05-14] MEDS: BALSAM PERU/CASTOR OIL 60 GM OINT...G. TP SCH (10:14)
[2020-05-14] MEDS: EYE LUBRICANT OPTH OINT 3.5GM TUBE OP SCH (10:54)
[2020-05-14] MEDS: PANTOPRAZOLE 40 MG 10ML VIAL IV SCH (10:54)
[2020-05-14] MEDS: ASPIRIN 81 MG CHEW TAB PO SCH (10:54)
[2020-05-14] MEDS: ZINC SULFATE 220 MG CAP PO SCH (10:55)
[2020-05-14] MEDS: AMIODARONE HCL 200 MG TAB PO SCH ×2 (10:55→18:06)
[2020-05-14] MEDS: ASCORBIC ACID 500 MG TAB PO SCH ×2 (10:55→18:06)
[2020-05-14] MEDS: VANCOMYCIN 250MG/5ML ORAL SOLN NG SCH ×2 (14:52→20:45)
--- NOTE | 2020-05-14 15:12 | Progress Note ---
DATE: SUBJECTIVE: The patient still complains of weakness. She is working with physical therapy. Her saturation is 100% on 2 L. PHYSICAL EXAMINATION: VITAL SIGNS: The blood pressure is 129/75, saturation is 100% on 2 L, and the pulse is 84. HEENT: Shows no facial swelling or erythema. CARDIAC: Reveals regular rate and rhythm with normal S1, S2. LUNGS: Auscultation of lungs reveals decreased breath sounds at the bases. There is no wheezing. ABDOMEN: Soft, nontender. There is no rebound or guarding. EXTREMITIES: Shows no leg edema or calf tenderness. There is no cyanosis or clubbing. SKIN: Shows no rashes. LABORATORY DATA: White blood cell count is 11.3 and hemoglobin is 10.2, and platelet count is 234. BUN to creatinine ratio is 28 to 0.63. Other electrolytes are within normal limits. Albumin is 2.4. IMPRESSION: 1. Viral pneumonia and COVID-19 infection. 2. Hkswx-vh-kynbsfn systolic congestive heart failure. 3. Atrial fibrillation. 4. Acute kidney injury. 5. Diabetes. 6. Myopathy. PLAN: 1. Continue physical therapy. 2. Continue to wean oxygen. 3. Continue to monitor and adjust insulin. 4. Discussed disposition with Dr. Espinoza and Case Management. Ayush Welch MD [facility]/MODL /[id number]
--- NOTE | 2020-05-14 18:22 | Progress Note ---
DATE: 05/14/2020 Cardiology Progress Note. SUBJECTIVE: The patient was discussed with nursing staff. No events were reported. OBJECTIVE: VITAL SIGNS: Temperature 99 degrees, pulse 91, respiratory rate 22, blood pressure 121/48, and oxygen saturation 96% on room air. The patient was not examined due to COVID-19 isolation. CARDIAC MEDICATIONS: 1. Amiodarone 200 mg p.o. b.i.d. 2. Aspirin 81 mg p.o. daily. 3. Enoxaparin 40 mg subcu q.12 hours. 4. Atorvastatin 10 mg p.o. at bedtime. LABORATORY DATA: WBC 11.27, hemoglobin 10.2, hematocrit 32.3, platelets 234. Sodium 141, potassium 4.6, chloride 103, CO2 of 32, BUN 28, and creatinine 0.63. TELEMETRY: Personally reviewed revealing normal sinus rhythm with PVCs. IMPRESSION: 1. Atrial fibrillation and flutter with rapid ventricular response, currently sinus rhythm. 2. Acute hypoxic respiratory failure. 3. COVID-19 pneumonia. 4. Type 2 myocardial infarction secondary to above. 5. Coronary artery disease status post prior LAD and circumflex stents. 6. Acute on chronic systolic heart failure. RECOMMENDATIONS: Continue amiodarone for rhythm control. If blood pressure remains stable, we will attempt to add low-dose metoprolol. Continue current cardiac medication otherwise. Repeat BMP. Creatinine has normalized. She would benefit from resuming diuretics to keep even. Continue supportive care. Management of COVID-19 per Infectious Disease. Thank you for this consult. We will continue to follow. Khloe Hayward MD [facility]/MODL /[id number] MTDMarlene
--- NOTE | 2020-05-14 20:40 | NUR ---
Resumed care of patient. Patient awake and resting in bed on room air, respirations even and unlabored, vital signs stable, no s/s of distress. Tube feeding at 60 ml/hr. Briones and rectal tube patent and draining to gravity. Family visiting via window. All safety measures in place. Will continue to monitor.
[2020-05-14] MEDS: ATORVASTATIN 10 MG TAB PO SCH (20:45)
[2020-05-14] MEDS: ENOXAPARIN SOD INJ 40 MG/0.4 ML SYR SC SCH (21:04)
[2020-05-14] MEDS: INSULIN GLARGINE 100 UNITS/ML VIAL SQ SCH (21:06)
[2020-05-15] VITALS (7 sets, daily range): BP systolic 102–141; BP diastolic 51–73
[2020-05-15] MEDS: INSULIN LISPRO 100 UNIT/1 ML 3ML VIAL SQ SCH ×6 (02:32→21:48)
[2020-05-15] MEDS: VANCOMYCIN 250MG/5ML ORAL SOLN NG SCH ×2 (03:22→13:26)
--- NOTE | 2020-05-15 06:23 | NUR ---
Patient resting quietly in bed, respirations even and unlabored on room air, vital signs stable, no s/s of distress at this time. All safety measures in place.
[2020-05-15] MEDS: EYE LUBRICANT OPTH OINT 3.5GM TUBE OP SCH (09:00)
[2020-05-15] MEDS: ASPIRIN 81 MG CHEW TAB PO SCH (11:17)
[2020-05-15] MEDS: AMIODARONE HCL 200 MG TAB PO SCH ×2 (11:17→16:32)
[2020-05-15] MEDS: BALSAM PERU/CASTOR OIL 60 GM OINT...G. TP SCH (11:17)
[2020-05-15] MEDS: ZINC SULFATE 220 MG CAP PO SCH (12:11)
[2020-05-15] MEDS: ASCORBIC ACID 500 MG TAB PO SCH ×2 (12:11→16:32)
[2020-05-15] MEDS: ENOXAPARIN SOD INJ 40 MG/0.4 ML SYR SC SCH (12:11)
--- NOTE | 2020-05-15 13:56 | Progress Note ---
DATE: Cardiology Progress Note SUBJECTIVE: No events were reported per nursing staff. The patient is doing well. OBJECTIVE: VITAL SIGNS: Temperature 98.2, heart rate is 90, respirations are 17, blood pressure is 111/73, and oxygen saturation 95% on room air. The patient was not examined due to COVID-19 infection. CARDIAC MEDICATIONS: Amiodarone, aspirin, Lovenox, and atorvastatin. LABORATORY DATA: Reviewed. Hemoglobin is 10.2. Creatinine is 0.63. TELEMETRY: Telemetry monitoring revealed normal sinus rhythm with premature ventricular complexes. IMPRESSION: 1. Paroxysmal atrial fibrillation and flutter. 2. Premature ventricular complexes. 3. Hypoxic respiratory failure. 4. Coronavirus disease-19 pneumonia. 5. Type 2 myocardial infarction. 6. History of coronary artery disease. 7. Acute on chronic systolic congestive heart failure. RECOMMENDATIONS: Continue current cardiovascular medications including amiodarone for rate and rhythm control. If blood pressure would be able to tolerate, we will start low-dose metoprolol. Continue to monitor volume status. Management of COVID-19 per Infectious Disease. DO AIDEN Adler/MODL /[id number]
--- NOTE | 2020-05-15 15:17 | NUR ---
CALL TO PT'S DTR; FACUNDO US @ [phone]; NO 1. EXPLAINED THE PURPOSE OF THE CALL. STATES SHE AND HER SISTER DID NOT WANT LTACH. STATES THEY WANT TO TAKE THEIR MOTHER HOME W HOME HEALTH. CM INQUIRED ABOUT THE LAST TIME THE FAMILY SPOKE W THE DOC ABOUT THE MOTHER'S CONDITION. SHE STATES ABOUT A WEEK AND 1/[address] ROUSSEAU USUALLY CALLS HER SISTER CATINA. THEY BOTH ARE THE DECISION MAKERS FOR THEIR MOTHER'S CARE. RADHA INFORMED DTR I WOULD SPEAK W DR. ROUSSEAU REGARDING THEIR WISHES TO TAKE THEIR MOTHER HOME. CALL TO DR. ROUSSEAU, BUT NOT ANSWER. LEFT DETAILED MESSAGE W DTR'S CONTACT INFO. WILL AWAIT CALL BACK OR FURTHER ORDERS.
--- NOTE | 2020-05-15 16:32 | Progress Note ---
DATE: SUBJECTIVE: The patient is afebrile. She still complains of weakness. She failed a swallowing test. OBJECTIVE: VITAL SIGNS: The blood pressure is 111/73, saturation is 95%. HEENT: Shows no facial swelling or erythema. CARDIAC: Reveals regular rate and rhythm with normal S1 and S2. LUNGS: Auscultation of lungs reveals rhonchus breath sounds bilaterally. There is no wheezing. ABDOMEN: Soft, nontender. There is no rebound or guarding. EXTREMITIES: Shows no leg edema or calf tenderness. There is no cyanosis or clubbing. SKIN: Shows no rashes. NEUROLOGICAL: Shows no focal abnormalities. LABORATORY DATA: BUN to creatinine ratio is 20 to 0.63. Other electrolytes are within normal limits. ASSESSMENT: 1. Acute respiratory failure. 2. Viral pneumonia and coronavirus disease-19 infection. 3. Systolic cardiomyopathy. 4. Atrial fibrillation. 5. Acute kidney injury. 6. Diabetes. PLAN: 1. Continue physical therapy. 2. Continue speech therapy with aspiration precautions. 3. Continue to monitor and adjust insulin. 4. Continue current cardiac regimen. 5. Complete antibiotics and dexamethasone. 6. Discuss disposition with Dr. Espinoza and Case Management. Ayush Welch MD [facility]/MODL /[id number] MTDD
[2020-05-15] MEDS: ATORVASTATIN 10 MG TAB PO SCH (21:45)
[2020-05-15] MEDS: INSULIN GLARGINE 100 UNITS/ML VIAL SQ SCH (21:48)
[2020-05-16] VITALS (7 sets, daily range): BP systolic 111–126; BP diastolic 52–81
[2020-05-16] MEDS: INSULIN LISPRO 100 UNIT/1 ML 3ML VIAL SQ SCH ×6 (02:00→21:50)
--- NOTE | 2020-05-16 07:35 | NUR ---
Received patient lying in bed with eyes open. Respiration even and unlabored without SOB. Urinary catheter in placed, secured to leg. Draining yellow-colored urine to bag. Rectal tube intact, in placed. Right NGT in placed, intact. Call light in reach.
[2020-05-16] MEDS: AMIODARONE HCL 200 MG TAB PO SCH ×2 (08:43→17:01)
[2020-05-16] MEDS: EYE LUBRICANT OPTH OINT 3.5GM TUBE OP SCH (08:43)
[2020-05-16] MEDS: ENOXAPARIN INJ 80 MG/0.8 ML SYR SC SCH (08:43)
[2020-05-16] MEDS: ZINC SULFATE 220 MG CAP PO SCH (08:43)
[2020-05-16] MEDS: BALSAM PERU/CASTOR OIL 60 GM OINT...G. TP SCH (08:43)
[2020-05-16] MEDS: ASCORBIC ACID 500 MG TAB PO SCH ×2 (08:43→17:01)
--- NOTE | 2020-05-16 08:45 | NUR ---
Awake, alert lying in bed with HOB elevated. Right nare NGT placement confirmed per auscultation of 15 ml air. No residuals noted on continuous feeding. Crushed medication given as scheduled via NGT.
[2020-05-16] MEDS: CHOLESTYRAMINE 4 GM PACKET PO SCH ×3 (09:35→21:45)
--- NOTE | 2020-05-16 09:40 | Progress Note ---
DATE: SUBJECTIVE: Ms. Peter is doing better. She looks comfortable. She is on room air. She is still weak. PHYSICAL EXAMINATION: GENERAL: Currently alert, oriented. VITAL SIGNS: Stable, currently afebrile. HEENT: Not icteric. NECK: Supple. CHEST: Clear. COR: S1, S2. No murmurs. ABDOMEN: Soft. She has an NG tube. She still has diarrhea. IMPRESSION: 1. Coronavirus disease-19, status post respiratory failure stable. We will discontinue oral vancomycin. Recommend to feed the patient and take the NG tube out. PT/OT. 2. Congestive heart failure. 3. Obesity. DICTATION ENDS HERE MD ELIZABETH Demarco/HARDIK /[id number]
--- NOTE | 2020-05-16 10:48 | NUR ---
Rectal tube removed per ordered. Balloon deflated and tube is intact. Patient is given a bed bath and pericare. Tolerated care without SOB. Call light in reach.
--- NOTE | 2020-05-16 11:06 | Progress Note ---
DATE: Pulmonary Critical Care Progress Note SUBJECTIVE: The patient has a rectal tube removed. She is working with physical therapy. She feels slightly improved. She is off oxygen. PHYSICAL EXAMINATION: VITAL SIGNS: The blood pressure is 124/57 and the pulse is 69. Saturation is 98%. HEENT: Shows no facial swelling or erythema. CARDIAC: Reveals regular rate and rhythm with normal S1 and S2. LUNGS: Auscultation of lungs reveals rhonchorous breath sounds bilaterally. There is no wheezing. ABDOMEN: Soft and nontender. There is no rebound or guarding. EXTREMITIES: Shows no leg edema or calf tenderness. There is no cyanosis or clubbing. SKIN: Shows no rashes. LABORATORY DATA: White blood cell count is 11.27, hemoglobin is 10.2, and the platelet count is 234. IMPRESSION: 1. Acute respiratory failure. 2. Viral pneumonia and COVID-19 infection. 3. Systolic cardiomyopathy. 4. Atrial fibrillation. 5. Diabetes. PLAN: 1. Continue physical therapy. 2. Continue to monitor and adjust insulin. 3. Continue current cardiac regimen. 4. Discussed disposition with Dr. Espinoza and case management. Ayush Welch MD [facility]/MODL /[id number]
[2020-05-16] MEDS: ATORVASTATIN 10 MG TAB PO SCH (20:00)
[2020-05-16] MEDS: INSULIN GLARGINE 100 UNITS/ML VIAL SQ SCH (21:50)
[2020-05-16] MEDS: ACETAMINOPHEN 325 MG/10 ML UDC NG PRN (21:50)
[2020-05-17] VITALS (8 sets, daily range): BP systolic 94–125; BP diastolic 50–66
[2020-05-17] MEDS: INSULIN LISPRO 100 UNIT/1 ML 3ML VIAL SQ SCH ×6 (02:00→20:57)
[2020-05-17 06:37] LABS: BASOPHILS % 0.2 % (0.0-1.0); EOSINOPHILS # (AUTO) 0.2 (0.0-0.4); EOSINOPHILS % 1.5 % (0.0-6.0); HEMATOCRIT 30.1 % (34.2-44.1); HEMOGLOBIN 9.4 g/dL (12.0-16.0); LYMPHOCYTES # (AUTO) 2.1 (1.0-3.2); LYMPHOCYTES % 19.6 % (18.0-39.1); MEAN CORPUSCULAR HGB CONC 31.2 g/dL (31-35); MEAN CORPUSCULAR VOLUME 96.2 fL (81-99); MONOCYTES # (AUTO) 0.5 (0.2-0.8); NEUTROPHILS # (AUTO) 7.7 (2.1-6.9); NEUTROPHILS % 73.4 % (38.7-80.0); PLATELET COUNT 186 x10e3/uL (140-360); RED BLOOD COUNT 3.13 x10e6/uL (3.6-5.1); RED CELL DISTRIBUTION WIDTH 14.7 % (11.7-14.4)
[2020-05-17 07:23] LABS: ANION GAP 12.4 mmol/L (8-16); BLOOD UREA NITROGEN 27 mg/dL (7-26); BUN/CREATININE RATIO 42 (6-25); CARBON DIOXIDE 27 mmol/L (22-29); CHLORIDE 103 mmol/L (98-107); CREATININE, SERUM 0.64 mg/dL (0.57-1.11); EST GLOMERULAR FILTRATION RATE > 60 ML/MIN (60-); GLUCOSE 100 mg/dL (74-118); POTASSIUM 4.4 mmol/L (3.5-5.1); SODIUM 138 mmol/L (136-145)
--- NOTE | 2020-05-17 07:36 | NUR ---
infectious disease consultation progress note 05/17/2020 Patient seen and examined chart reviewed events noted Discussed with the medical team Medication list reviewed The patient has a rectal tube removed. She is working with physical therapy. She feels slightly improved. She is off oxygen. PHYSICAL EXAMINATION: VITAL SIGNS: The blood pressure is 124/57 and the pulse is 69. Saturation is 98%. HEENT: Shows no facial swelling or erythema. CARDIAC: Reveals regular rate and rhythm with normal S1 and S2. LUNGS: Auscultation of lungs reveals rhonchorous breath sounds bilaterally. There is no wheezing. ABDOMEN: Soft and nontender. There is no rebound or guarding. EXTREMITIES: Shows no leg edema or calf tenderness. There is no cyanosis or clubbing. SKIN: Shows no rashes. LABORATORY DATA: White blood cell count is 11.27, hemoglobin is 10.2, and the platelet count is 234. IMPRESSION: 1. Acute respiratory failure. RESOLVED 2. Viral pneumonia and COVID-19 infection. 3. Systolic cardiomyopathy. 4. Atrial fibrillation. 5. Diabetes. SKIN RASH r/o drug related patient can go snf with oxygen Eliquis 2.5 g by mouth twice a day for 30 days Albuterol for cough Diabetic control
--- NOTE | 2020-05-17 08:28 | NUR ---
CALL TO THE UNIT AND SPOKE W DR. ROUSSEAU AND JESUSITA / BEDSIDE NURSE TO DISCUSS THE PLAN. DR. ROUSSEAU STATES HE DID NOT ORDER THE LTAC AND IF THE FAMILY WANTS THE PT TO RETURN HOME THEN THE PLAN IS HOME. STATES DR. URBAN WILL NEED TO CALL THE FAMILY TO DISCUSS LTACH. CM INFORMED DR. ROUSSEAU HE MAKES THE FINAL DECISION FOR THE PT. STATES THE PT WILL STAY INPT UNTIL SHE IS READY TO DC HOME. HE INQUIRED ABOUT THE SWALLOW EVAL. JESUSITA INFORMED SHE DID NOT PASS. HE GAVE ORDERS FOR MBS. WILL F/U W JESUSITA DURING MDR.
[2020-05-17 09:47] LABS: BAND NEUTROPHILS % (MANUAL) 2 %; EOSINOPHILS % (MANUAL) 4 % (0-7); LYMPHOCYTES % (MANUAL) 15 % (19-48); MONOCYTES % (MANUAL) 3 % (3.4-9.0); NEUTROPHILS % (MANUAL) 76 % (40-74)
[2020-05-17 09:48] LABS: ANISOCYTOSIS SLIGHT; PLATELET ESTIMATE ADEQUATE; PLATELET MORPHOLOGY COMMENT RARE EDTA CLUMPING; RBC MORPHOLOGY COMMENT NORMAL
[2020-05-17] MEDS: ENOXAPARIN INJ 80 MG/0.8 ML SYR SC SCH (10:15)
[2020-05-17] MEDS: ZINC SULFATE 220 MG CAP PO SCH (10:15)
[2020-05-17] MEDS: BALSAM PERU/CASTOR OIL 60 GM OINT...G. TP SCH (10:15)
[2020-05-17] MEDS: CHOLESTYRAMINE 4 GM PACKET PO SCH ×3 (10:15→23:20)
[2020-05-17] MEDS: EYE LUBRICANT OPTH OINT 3.5GM TUBE OP SCH (10:15)
[2020-05-17] MEDS: ASCORBIC ACID 500 MG TAB PO SCH ×2 (10:15→18:10)
[2020-05-17] MEDS: AMIODARONE HCL 200 MG TAB PO SCH (10:15)
--- NOTE | 2020-05-17 12:10 | NUR ---
ROUNDED W NURSES IN UNIT TO DISCUSS PLANS. SPOKE W . STATES SHE ATTEMPTED THE MBS AT THE BEDSIDE, BUT THE PT REFUSED TO TAKE ANYTHING ORALLY. STATES WHEN CLEANING THE PT'S MOUTH SHE HAS BLEEDING FROM MULTIPLE SORES . DISCUSSED W DR. URBAN AND JESUSITA/ BEDSIDE RN. STATES PT HAS SORES IN HER MOUTH AND BODY. WILMAR TO REVIEW. DR. URBAN STATES HE WILL SPEAK W THE FAMILY REGARDING PT'S DISPO. STATES SHE WILL DIFFICULT TO TRANSITION HOME.
--- NOTE | 2020-05-17 12:45 | Progress Note ---
DATE: SUBJECTIVE: The patient is still weak. She has difficulty standing with physical therapy. She failed the swallowing evaluation and still has a feeding tube. She developed a new coalescing macular rash yesterday. She also complains of sores in her mouth. PHYSICAL EXAMINATION: VITAL SIGNS: Blood pressure is 109/62 and heart rate is 80. Saturation is 100%. The patient is afebrile. HEENT: Shows no facial swelling or erythema. There are some sores on the lips bilaterally, both the upper and lower lip. LYMPHATIC: Shows no submandibular, cervical, or supraclavicular adenopathy. CARDIAC: Reveals regular rate and rhythm with normal S1 and S2. LUNGS: Auscultation of lungs reveals decreased breath sounds at the bases. There is no wheezing. ABDOMEN: Soft and nontender. There is no rebound or guarding. EXTREMITIES: Shows no leg edema or calf tenderness. There is no cyanosis or clubbing. LABORATORY DATA: White blood cell count is 10.4 and hemoglobin is 9.4. The platelet count is 186. The BUN to creatinine ratio is 27 to 0.46. Other electrolytes are within normal limits. IMPRESSION: 1. Viral pneumonia and COVID-19 infection. 2. 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 3. Systolic cardiomyopathy. 4. Atrial fibrillation. 5. Diabetes. PLAN: 1. Discuss rash and mouth sores with Infectious Disease and Internal Medicine. Consider discontinuing amiodarone. 2. Continue to monitor and adjust insulin. 3. Continue current cardiac regimen. 4. Physical therapy. 5. Continue enteral feedings. Ayush Welch MD [facility]/MODL /[id number]
--- NOTE | 2020-05-17 12:56 | Progress Note ---
DATE: Cardiology Progress Note SUBJECTIVE: The patient's status was discussed with nursing staff. The patient is doing well from a cardiovascular standpoint. Denies any chest pain. PHYSICAL EXAMINATION: VITAL SIGNS: Temperature is 98.5, heart rate is 90, respirations are 20, blood pressure is 109/62, oxygen saturation 100% on room air. Per Pulmonary Critical Care team. The patient was not examined due to COVID-19 isolation. LABORATORY DATA: Reviewed. Hemoglobin is 9.4, creatinine is 0.64, potassium is 4.4. CARDIOVASCULAR MEDICATIONS: Reviewed. Include Lovenox, amiodarone, atorvastatin, p.r.n. metoprolol. Telemetry monitoring was personally reviewed by me and shows sinus rhythm with PVCs. IMPRESSION: 1. Paroxysmal atrial fibrillation and flutter. 2. Premature ventricular complexes. 3. Hypoxic respiratory failure. 4. Coronavirus disease -19 pneumonia. 5. Type 2 myocardial infarction. 6. History of coronary artery disease. 7. Acute on chronic systolic congestive heart failure. RECOMMENDATIONS: Continue current cardiovascular medications including amiodarone for rate and rhythm control. COVID-19 workup per primary team. DO AIDEN Adler/HARDIK /[id number]
--- NOTE | 2020-05-17 15:58 | NUR ---
CALL TO [employer] REGARDING PENDING AUTH. STATES THEY HAVE 1 MORE DAY TO WAIT FOR INSURANCE. STATES THE WAIT LIST IS NOT HORRIBLE. JUST WAITING ON INSURANCE AUTH. WILL F/U
--- NOTE | 2020-05-17 16:50 | NUR ---
Nutrition Intervention Note RD Recommendation(s) for Physician: - Continue Vital AF 1.2 with goal rate of 45 ml/hr (provides 1296 kcal and 81 gm protein) - Water flushes per MD Plan of Care: RD following, TF rec's, monitoring for tolerance and adequacy Nutrition reason for involvement: follow up RD Assessment 05/17: Follow up. Pt continues on TF, failed swallow evaluation. Discharge planning ongoing. Chart reviewed. Current TF remains appropriate. Will continue to monitor. 05/12: Follow up. Pt was extubated on 05/10. Pts tube feed is currently at 30 mL/hr per chart. Speech therapy evaluated pts swallowing ability and recommend pt remain NPO with NG feeds at this time. Recommendations provided. Will continue to monitor. 05/08: Follow up. Pt remains intubated and sedated. Tube feeding is currently at 20 mL/hr. Recommendations provided. Will continue to monitor. 05/03: 69 YOF admitted for respiratory failure, septic shock, and covid-19. Pt evaluated today per intubation and pending TF. Pt remains intubated and sedated with 1 low dose pressor. Pt required proning yesterday. TF pending initiation. Pt appears well nourished. Chart reviewed. TF rec's provided. Will continue to monitor. Principal Problems/Diagnoses: covid-19, respiratory failure, septic shock PMH: CHF, CKD, CAD, DM GI: last recorded BM 05/17 Skin: sacrum stage II PU Labs: 05/17: Na 138, K 4.4, BUN 27, Cr 0.69, Gluc 100, POC Gluc 132-154 05/12: Na 139, K 4.7, BUN 31, Cr 0.72, Glu 116, Ca 8.0 05/08: Na 142, K 4.3, BUN 58, Cr 0.83, Glu 89, Mg 2.4 05/03: Na 148, K 3.9, BUN 37, Cr 1.6, Gluc 147, POC Gluc 91-117 Meds: humalog, questran, vitamin C, since sulfate, lantus Ht: 62 in Wt: 219 lbs (05/11) 232 lbs (05/08) 226 lb (05/03) BMI: 40.1 kg/m2 (using weight of 219 lbs) IBW: 110 lb Malnutrition Evaluation (7/8/20) The patient does not meet criteria for a specified degree of malnutrition at this time. Will re-evaluate at follow-up as appropriate. Unable to assess per current isolation precautions Nutrition Prescription (Diet Order): Vital AF at 20 ml/hr running at 50-55 mL/hr per documentation in chart (TV of 1300 ml in last 24 hrs, providing 1560 kcal and 98 gm protein) Estimated Nutritional Needs: 9309-4724 calories/day (22-25 kcal/kg IBW) 75-100 g protein/day (1.5-2 g pro/kg IBW) Diet Adequacy: meeting calorie needs, meeting protein needs Diet Tolerance: tolerating TF Diet Education Needs Assessment: Diet education not indicated Nutrition Care Level: moderate Nutrition Diagnosis: Inadequate energy and protein intake related to decreased ability to consume sufficient energy as evidenced by pt requiring EN. Goal: Patient will meet 75-100% of estimated needs by follow up Progress: progressing Interventions: - Composition, Rate, Route, Recommended Modifications Monitoring/Evaluation: - Total energy intake, Total protein intake, Formula/Solution, Weight change Signed: Yu Wells RD, LD, [facility]
--- NOTE | 2020-05-17 19:10 | NUR ---
Patient has an all over red rash, which is new, and also causing her to itch. Doctors were alerted by this nurse. Doctors are thinking the Amiodarone is causing this and asked that it be placed on hold. This senior writer called Dr. Manuel's office x2 to alert them, with no return call. Passed on in report. Medication is on hold.
--- NOTE | 2020-05-17 20:55 | NUR ---
HAS C/O ITCHING ALL OVER THE BODY.CALL PLACE DTO AND LEFT MESSAGE.AWAITING CALL BACK.
[2020-05-17] MEDS: INSULIN GLARGINE 100 UNITS/ML VIAL SQ SCH (20:56)
[2020-05-17] MEDS ORDERED: HYDROXYZINE HCL 25 MG TAB PO PRN ×2 (21:30→22:30)
--- NOTE | 2020-05-17 22:16 | NUR ---
Received new orders from .implemented.
[2020-05-18] VITALS (8 sets, daily range): BP systolic 111–166; BP diastolic 54–72
[2020-05-18] MEDS: LORATADINE 10 MG TAB PO SCH ×2 (00:08→13:09)
[2020-05-18] MEDS: INSULIN LISPRO 100 UNIT/1 ML 3ML VIAL SQ SCH ×5 (01:33→18:35)
--- NOTE | 2020-05-18 02:49 | NUR ---
Repositioned.vital AF1.2 RUNNING @100/ML hr.tolerates the diet.residual checked.stable condition.
--- NOTE | 2020-05-18 04:30 | NUR ---
Robert richardson and sent to the lab.pt tolerated well
[2020-05-18] MEDS: HYDROXYZINE HCL 10 MG TAB PO SCH ×4 (06:26→16:35)
[2020-05-18] MEDS: ACETAMINOPHEN 325 MG/10 ML UDC NG PRN ×2 (06:28→20:53)
--- NOTE | 2020-05-18 07:08 | NUR ---
BED SIDE SHIFT REPORT GIVEN TO ONCOMING RN.STABLE CONDITION.
--- NOTE | 2020-05-18 10:30 | Progress Note ---
DATE: Pulmonary Critical Care Progress Note SUBJECTIVE: The patient continues to feel very fatigued and weak. She has coalescing erythematous rash on her trunk and extremities. PHYSICAL EXAMINATION: VITAL SIGNS: Blood pressure is 111/72, saturation is 98% on room air. HEENT: No facial swelling or erythema. CARDIAC: Regular rate and rhythm with normal S1, S2. LUNGS: Auscultation of lungs reveals crackles at the bases. There is no wheezing. ABDOMEN: Soft and nontender. There is no rebound or guarding. EXTREMITIES: No leg edema or calf tenderness. There is no cyanosis or clubbing. SKIN: Diffuse erythematous rash. LABORATORY DATA: Blood gases within normal limits. IMPRESSION: 1. Viral pneumonia and coronavirus disease-19 infection. 2. Coalescing macular rash. 3. Systolic cardiomyopathy. 4. Atrial fibrillation. 5. Diabetes. 6. Deconditioning. PLAN: 1. Decrease oxygen to 2 L. 2. Continue physical therapy. 3. Continue enteral feedings. 4. Continue current cardiac regimen. 5. Continue to monitor and adjust insulin. 6. Arranged disposition with Case Management, family, and Dr. Espinoza. Ayush Welch MD [facility]/MODL /[id number]
--- NOTE | 2020-05-18 10:55 | Progress Note ---
DATE: Cardiology Progress Note SUBJECTIVE: The patient is more lethargic today, developed red erythematous rash over her body. Cannot obtain review of systems. OBJECTIVE: VITAL SIGNS: Temperature is 98.2, heart rate is 86, respirations are 16, blood pressure is 111/72, oxygen saturation 98% on room air. GENERAL: She is lethargic, obese woman, lying comfortably in bed, no apparent distress, not oriented. The rest of physical examination was deferred due to coronavirus disease - 19 isolation. Visual inspection of the skin showed erythematous rash. LABORATORY DATA: Reviewed. CARDIOVASCULAR MEDICATIONS: Reviewed. Telemetry monitoring was personally reviewed by myself and shows normal sinus rhythm with PVCs. ASSESSMENT: 1. Paroxysmal atrial fibrillation and flutter. 2. Premature ventricular complexes. 3. Hypoxic respiratory failure. 4. Altered mental status. 5. Coronavirus disease - 19 pneumonia. 6. Type 2 myocardial infarction. 7. History of coronary artery disease. 8. Acute on chronic systolic congestive heart failure. PLAN: Amiodarone has been held due to suspicion that this agent caused her erythematous rash. Continue to monitor on telemetry. If able to tolerate metoprolol, can consider starting low-dose beta blockade. Treatment of her rash per primary team. Continue supportive care for coronavirus. DO AIDEN Adler/HARDIK /[id number]
--- NOTE | 2020-05-18 11:08 | NUR ---
Dr. Espinoza saw patient this morning and ordered an ABG. Patient had an ABG done, which was WNL. Dr. Clayton Welch saw patient and stated that she needs an IS, PT, to get up and OOB, and go to SNF or LTAC. Dr. Trevino also came to see patient and discontinued the amiodarone, as they think it is causing the redness and itching. Patient's daughter was called and they requested no LTAC or SNF. This pattern chart writer called Dr. Espinoza and he stated "i do not want anything done until I say so. She is decompensating and i do not want her going anywhere". Patient's family stated that Dr. Espinoza told them that patient would be intubated again, and she does not need to be at this time, her ABG is WNL.
[2020-05-18 12:27] LABS: ABG PCO2 44 mmHg (35-45)
[2020-05-18 12:28] LABS: ABG HCO3 27 mmol/L (22-26); ABG PO2 161 mmHg (80-105)
[2020-05-18] MEDS: ASCORBIC ACID 500 MG TAB PO SCH ×2 (13:09→16:35)
[2020-05-18] MEDS: BALSAM PERU/CASTOR OIL 60 GM OINT...G. TP SCH (13:09)
[2020-05-18] MEDS: EYE LUBRICANT OPTH OINT 3.5GM TUBE OP SCH (13:09)
[2020-05-18] MEDS: ENOXAPARIN INJ 80 MG/0.8 ML SYR SC SCH (13:09)
[2020-05-18] MEDS: ZINC SULFATE 220 MG CAP PO SCH (13:09)
[2020-05-18] MEDS: CHOLESTYRAMINE 4 GM PACKET PO SCH ×3 (13:10→21:51)
[2020-05-18] MEDS ORDERED: MAALOX/LIDOCAINE/BENADRYL/NYST 30 ML BTL PO PRN (14:30)
--- NOTE | 2020-05-18 20:10 | NUR ---
RASH AND REDNESS ALL OVER THE BODY.NO RESP.DISTRESS.REPOSITIONED.CALL LIGHT WITHIN REACH.STABLE CONDITION.
[2020-05-18] MEDS: INSULIN GLARGINE 100 UNITS/ML VIAL SQ SCH (20:57)
[2020-05-19] VITALS (8 sets, daily range): BP systolic 106–134; BP diastolic 42–74
[2020-05-19] MEDS: HYDROXYZINE HCL 10 MG TAB PO SCH ×4 (00:12→16:45)
[2020-05-19] MEDS: INSULIN LISPRO 100 UNIT/1 ML 3ML VIAL SQ SCH ×4 (00:26→16:24)
--- NOTE | 2020-05-19 05:57 | NUR ---
central line dressing changed.patient tolerated well.tube feeding running @ 8O ml/hr.
[2020-05-19] MEDS: ZINC SULFATE 220 MG CAP PO SCH (10:09)
[2020-05-19] MEDS: LORATADINE 10 MG TAB PO SCH (10:09)
[2020-05-19] MEDS: CHOLESTYRAMINE 4 GM PACKET PO SCH ×3 (10:09→21:45)
[2020-05-19] MEDS: ASCORBIC ACID 500 MG TAB PO SCH ×2 (10:09→16:45)
[2020-05-19] MEDS: EYE LUBRICANT OPTH OINT 3.5GM TUBE OP SCH (10:09)
[2020-05-19] MEDS: ENOXAPARIN INJ 80 MG/0.8 ML SYR SC SCH (10:09)
--- NOTE | 2020-05-19 11:36 | NUR ---
PT DISCUSSED IN MDR. TAIWO, RN / BEDSIDE NURSE STATES THE FAMILY NOW WOULD LIKE TO PROCEED WITH LTAC. CALL TO FACUNDO @ [phone]. NO ANSWER; LEFT VM. FACUNDO CALLED BACK. CM EXPLAINED THE PURPOSE OF THE CALL. STATES SHE WAS IN A MEETING AND WILL CALL BACK. CM AGREED.
[2020-05-19] MEDS: BALSAM PERU/CASTOR OIL 60 GM OINT...G. TP SCH (13:40)
--- NOTE | 2020-05-19 14:52 | NUR ---
CALL TO FACUNDO AGAIN FOR CHOICE. STATES DR. ROUSSEAU SAID HE WILL LET THEM KNOW IF THIS IS A GOOD IDEA. INFORMED THE PT OF HER LTAC CHOICES AND THE WEEKEND CM WILL BE CONTACTING HER FOR CHOICE.
--- NOTE | 2020-05-19 18:46 | Progress Note ---
DATE: Cardiology Procedure Note SUBJECTIVE: The patient's case discussed with the nursing staff. The patient has altered mental status and her rash is still present. No other cardiovascular events. OBJECTIVE: VITAL SIGNS: Temperature 97.6, heart rate is 90, respirations are 20, blood pressure is 120/74, and saturation 98% on 2 L nasal cannula. The patient was not physically examined due to COVID-19 isolation. LABORATORY DATA: Reviewed. None recent. CARDIOVASCULAR MEDICATIONS: Reviewed. IMPRESSION: 1. Paroxysmal atrial fibrillation and flutter. 2. Premature ventricular complexes. 3. Hypoxemic respiratory failure. 4. Altered mental status. 5. Coronavirus disease-19 pneumonia. 6. Type 2 myocardial infarction. 7. History of coronary artery disease. 8. Dufxq-ak-mzlzeem systolic congestive heart failure. RECOMMENDATIONS: Amiodarone has been held due to erythematous rash. Continue to monitor on telemetry. If needed, can start her on oral metoprolol. Treatment of her rash per primary team. Continue supportive care for her coronavirus infection. Woodrow Trevino DO BM/MODL /[id number]
--- NOTE | 2020-05-19 19:07 | NUR ---
Report given to oncoming nurse of patient's status. Resting in bed mid fowlers position. No s/s of acute distress noted. Side rails upx2, call light within reach, bed alarm on.
[2020-05-19] MEDS: INSULIN GLARGINE 100 UNITS/ML VIAL SQ SCH (21:46)
--- NOTE | 2020-05-19 22:33 | Progress Note ---
DATE: SUBJECTIVE: The patient is still weak. She is saturating 98% on 2 L. Her rash is improved. PHYSICAL EXAMINATION: VITAL SIGNS: Blood pressure is 120/74, saturation is 98%. HEENT: No facial swelling or erythema. CARDIAC: Reveals a regular rate and rhythm with normal S1, S2. LUNGS: Auscultation of lungs reveals rhonchorous breath sounds bilaterally. There is no wheezing. ABDOMEN: Soft and nontender. There is no rebound or guarding. EXTREMITIES: No leg edema or calf tenderness. There is no cyanosis or clubbing. SKIN: No rashes. NEUROLOGICAL: No focal abnormalities. The patient is diffusely weak. LABORATORY DATA: Hemoglobin is 9.4, and the platelet count is 186. IMPRESSION: 1. Viral pneumonia and coronavirus disease-19 infection. 2. Systolic congestive heart failure, that is chronic. 3. Atrial fibrillation. 4. Diabetes. PLAN: 1. Continue physical therapy. 2. Continue current cardiac regimen. 3. Continue enteral feedings. 4. Continue to monitor and adjust insulin. Ayush Welch MD [facility]/MODL /[id number]
[2020-05-20] VITALS (8 sets, daily range): BP systolic 96–122; BP diastolic 55–81
[2020-05-20] MEDS: HYDROXYZINE HCL 10 MG TAB PO SCH ×4 (00:35→17:31)
[2020-05-20] MEDS: INSULIN LISPRO 100 UNIT/1 ML 3ML VIAL SQ SCH ×4 (05:43→17:31)
[2020-05-20 05:51] LABS: BASOPHILS % 0.1 % (0.0-1.0); EOSINOPHILS # (AUTO) 1.1 (0.0-0.4); EOSINOPHILS % 14.8 % (0.0-6.0); HEMATOCRIT 25.4 % (34.2-44.1); HEMOGLOBIN 7.8 g/dL (12.0-16.0); LYMPHOCYTES # (AUTO) 1.9 (1.0-3.2); LYMPHOCYTES % 25.7 % (18.0-39.1); MEAN CORPUSCULAR HEMOGLOBIN 29.5 pg (28-32); MEAN CORPUSCULAR HGB CONC 30.7 g/dL (31-35); MEAN CORPUSCULAR VOLUME 96.2 fL (81-99); MONOCYTES # (AUTO) 0.5 (0.2-0.8); MONOCYTES % 6.3 % (4.4-11.3); NEUTROPHILS # (AUTO) 3.9 (2.1-6.9); NEUTROPHILS % 52.8 % (38.7-80.0); PLATELET COUNT 145 x10e3/uL (140-360); RED BLOOD COUNT 2.64 x10e6/uL (3.6-5.1)
[2020-05-20 06:17] LABS: ALANINE AMINOTRANSFERASE 47 IU/L (0-55); ALBUMIN 2.2 g/dL (3.5-5.0); ALBUMIN/GLOBULIN RATIO 0.6 (0.8-2.0); ALKALINE PHOSPHATASE 103 IU/L (40-150); ANION GAP 10.5 mmol/L (8-16); BLOOD UREA NITROGEN 28 mg/dL (7-26); BUN/CREATININE RATIO 46 (6-25); CALCIUM 8.1 mg/dL (8.4-10.2); CARBON DIOXIDE 26 mmol/L (22-29); CHLORIDE 105 mmol/L (98-107); CREATININE, SERUM 0.61 mg/dL (0.57-1.11); EST GLOMERULAR FILTRATION RATE > 60 ML/MIN (60-); GLUCOSE 115 mg/dL (74-118); POTASSIUM 4.5 mmol/L (3.5-5.1); SODIUM 137 mmol/L (136-145)
[2020-05-20 08:16] LABS: BAND NEUTROPHILS % (MANUAL) 2 %; EOSINOPHILS % (MANUAL) 13 % (0-7); LYMPHOCYTES % (MANUAL) 23 % (19-48); MONOCYTES % (MANUAL) 4 % (3.4-9.0); NEUTROPHILS % (MANUAL) 58 % (40-74)
[2020-05-20] MEDS: ZINC SULFATE 220 MG CAP PO SCH (08:16)
[2020-05-20] MEDS: LORATADINE 10 MG TAB PO SCH (08:43)
[2020-05-20] MEDS: ASCORBIC ACID 500 MG TAB PO SCH ×2 (08:43→17:31)
[2020-05-20] MEDS: ENOXAPARIN INJ 80 MG/0.8 ML SYR SC SCH (08:43)
[2020-05-20] MEDS: EYE LUBRICANT OPTH OINT 3.5GM TUBE OP SCH (08:43)
[2020-05-20] MEDS: BALSAM PERU/CASTOR OIL 60 GM OINT...G. TP SCH (09:30)
[2020-05-20] MEDS: METOPROLOL SUCCINATE 25 MG TAB XL PO SCH (11:00)
[2020-05-20] MEDS: CHOLESTYRAMINE 4 GM PACKET PO SCH ×3 (11:14→22:00)
--- NOTE | 2020-05-20 11:44 | Progress Note ---
DATE: Cardiology Progress Note SUBJECTIVE: Nursing reports no new concerns overnight. However, they do report that the patient is lethargic and drowsy this morning. OBJECTIVE: VITAL SIGNS: Temperature 98.4, pulse 80, respiratory rate 24, blood pressure 112/57, and oxygen saturation 94% on 2 L nasal cannula. CARDIOVASCULAR MEDICATIONS: Lovenox 80 mg subcu daily and metoprolol 5 mg q.6 hours IV p.r.n. LABORATORY DATA: WBC 7.42, hemoglobin 7.8, hematocrit 25.4, and platelets 145. Sodium 137, potassium 4.5, BUN 28, creatinine 0.61, glucose 115, AST 38, and ALT 47. IMPRESSION: 1. Paroxysmal atrial fibrillation, atrial flutter. 2. PVCs. 3. Hypoxic respiratory failure. 4. COVID-19 pneumonia. 5. Type 2 myocardial infarction. 6. History of coronary artery disease. 7. Uvkxt-vw-skjbyyo systolic heart failure. RECOMMENDATIONS: Continue the above listed cardiac medications, currently amiodarone on hold due to erythematous rash. Continue to monitor, on telemetry. Low-dose beta-sajan initiated. Continue supportive care for coronary virus infection. We will continue to follow this patient very closely. Dictated by Darcie Villa NP MD VALENTE Diaz/HARDIK /[id number]
--- NOTE | 2020-05-20 11:47 | NUR ---
CALLED FAMILY TO GET CHOICE FOR LTAC, NO ANSWER LEFT MESSAGE TO RETURN CALL.
--- NOTE | 2020-05-20 15:25 | Progress Note ---
DATE: SUBJECTIVE: The patient is still fatigued. She is able to stand with physical therapy. She still has a feeding tube in place. She is on 2 L nasal cannula. PHYSICAL EXAMINATION: VITAL SIGNS: Blood pressure is 115/55, saturation is 100% on 2 L. HEENT: Shows no facial swelling or erythema. CARDIAC: Reveals regular rate and rhythm with normal S1, S2. LUNGS: Auscultation of lungs reveals rhonchorous breath sounds bilaterally. There is no wheezing. ABDOMEN: Soft, nontender. There is no rebound or guarding. EXTREMITIES: Shows no leg edema or calf tenderness. There is no cyanosis or clubbing. LABORATORY DATA: Hemoglobin 7.8 and white blood cell count is 7.4. Platelet count is 145. BUN to creatinine ratio is normal. Other electrolytes are within normal limits. Albumin is 2.2. IMPRESSION: 1. Viral pneumonia and COVID-19 infection. 2. Chronic systolic congestive heart failure. 3. Atrial fibrillation. 4. Diabetes. 5. Deconditioning. PLAN: 1. Continue physical therapy. 2. Continue current cardiac regimen. 3. Enteral feedings and continue with speech therapy. 4. Continue to monitor and control blood sugars. Ayush Welch MD [facility]/DMITRIYL /[id number]
[2020-05-20] MEDS: INSULIN GLARGINE 100 UNITS/ML VIAL SQ SCH (21:21)
[2020-05-21] VITALS (8 sets, daily range): BP systolic 110–132; BP diastolic 48–83
[2020-05-21] MEDS: HYDROXYZINE HCL 10 MG TAB PO SCH ×2 (00:33→05:49)
[2020-05-21] MEDS: INSULIN LISPRO 100 UNIT/1 ML 3ML VIAL SQ SCH ×4 (04:47→17:01)
[2020-05-21] MEDS: LORATADINE 10 MG TAB PO SCH (08:31)
[2020-05-21] MEDS: ZINC SULFATE 220 MG CAP PO SCH (08:31)
[2020-05-21] MEDS: ASCORBIC ACID 500 MG TAB PO SCH ×2 (08:31→16:50)
[2020-05-21] MEDS: METOPROLOL SUCCINATE 25 MG TAB XL PO SCH (08:31)
[2020-05-21] MEDS: EYE LUBRICANT OPTH OINT 3.5GM TUBE OP SCH (08:31)
[2020-05-21] MEDS: BALSAM PERU/CASTOR OIL 60 GM OINT...G. TP SCH (08:32)
[2020-05-21] MEDS: ENOXAPARIN INJ 80 MG/0.8 ML SYR SC SCH (08:32)
--- NOTE | 2020-05-21 10:58 | Progress Note ---
DATE: Cardiology Progress Note SUBJECTIVE: Nursing reports no new concerns or complaints from the patient this morning. OBJECTIVE: VITAL SIGNS: Temperature 99.1, pulse 87, respiratory rate 24, blood pressure 111/83, oxygen saturation 100% on 2 L nasal cannula. CARDIOVASCULAR MEDICATIONS: 1. Lovenox 80 mg subcu daily. 2. Metoprolol 25 p.o. daily. LABORATORY DATA: No new labs today. TELEMETRY: Sinus rhythm with occasional PVCs. IMPRESSION: 1. Paroxysmal atrial fibrillation, atrial flutter. 2. Premature ventricular contractions. 3. Hypoxic respiratory failure. 4. Coronavirus disease-2019 pneumonia. 5. Type 2 myocardial infarction. 6. History of coronary artery disease. 7. Agiou-sc-kjpttgp systolic heart failure. RECOMMENDATIONS: Continue the above listed cardiac medications. Amiodarone is currently on hold due to erythematous rash. Continue to monitor on telemetry. Continue low-dose beta-sajan. Continue supportive care and treatment for coronavirus infection. We will continue to monitor this patient very closely. Dictated by Darcie Villa NP MD MERCEDEZ DiazV/HARDIK /[id number]
--- NOTE | 2020-05-21 13:45 | NUR ---
NGT REMOVED PER PHYSICIAN ORDER. CATHETER TIP INTACT. PATIENT OFFERED ICE CHIPS. PATIENT SWALLOWED ICE CHIPS FINE WITH HOB ELEVATED TO 90 DEGREES. NO DISTRESS NOTED. ORAL CARE PROVIDED.
--- NOTE | 2020-05-21 17:02 | NUR ---
PATIENT CONSUMED APPLESAUCE WITH CRUSHED MEDICATIONS. PATIENT INFORMED WATER FILTERER HELPER THAT SHE DID NOT WANT ANYTHING ELSE TO EAT. NO DISTRESS NOTED. PATIENT RESTING IN BED WITH HOB ELEVATED. AWAKE ALERT AND ORIENTED TO PERSON. CALL LIGHT IN REACH. SIDE RAILS UP X2. BED LOW.
--- NOTE | 2020-05-21 20:40 | Progress Note ---
DATE: SUBJECTIVE: The patient is still fatigued. She is still weak. She is not complaining of dyspnea or cough. Her rash is improved. PHYSICAL EXAMINATION: VITAL SIGNS: Blood pressure is 111/52, pulse is 82, respiratory rate is 16, and saturation is 100%. HEENT: Shows no facial swelling or erythema. CARDIAC: Reveals regular rate and rhythm with normal S1 and S2. LUNGS: Auscultation of lungs reveals crackles at the bases. There is no wheezing. ABDOMEN: Soft and nontender. There is no rebound or guarding. EXTREMITIES: Shows no leg edema or calf tenderness. There is no cyanosis or clubbing. SKIN: Shows no rashes. NEUROLOGICAL: Shows no focal abnormalities. LABORATORY DATA: CBC and CMP are within normal limits except for anemia of 7.8. IMPRESSION: 1. Viral pneumonia and COVID-19 infection. 2. Chronic systolic congestive heart failure. 3. Atrial fibrillation. 4. Diabetes. PLAN: 1. Continue physical therapy. 2. Continue enteral feedings. 3. Monitor and control blood sugars. Ayush Welch MD [facility]/MODL /[id number]
[2020-05-21] MEDS: INSULIN GLARGINE 100 UNITS/ML VIAL SQ SCH (20:41)
[2020-05-22] VITALS (7 sets, daily range): BP systolic 110–136; BP diastolic 60–75
[2020-05-22] MEDS: INSULIN LISPRO 100 UNIT/1 ML 3ML VIAL SQ SCH ×4 (05:36→17:38)
[2020-05-22 05:42] LABS: BASOPHILS % 0.1 % (0.0-1.0); EOSINOPHILS # (AUTO) 1.5 (0.0-0.4); EOSINOPHILS % 18.9 % (0.0-6.0); HEMATOCRIT 28.5 % (34.2-44.1); HEMOGLOBIN 8.7 g/dL (12.0-16.0); LYMPHOCYTES # (AUTO) 2.3 (1.0-3.2); LYMPHOCYTES % 28.4 % (18.0-39.1); MEAN CORPUSCULAR HEMOGLOBIN 29.5 pg (28-32); MEAN CORPUSCULAR HGB CONC 30.5 g/dL (31-35); MEAN CORPUSCULAR VOLUME 96.6 fL (81-99); MONOCYTES # (AUTO) 0.5 (0.2-0.8); MONOCYTES % 6.3 % (4.4-11.3); NEUTROPHILS # (AUTO) 3.6 (2.1-6.9); PLATELET COUNT 157 x10e3/uL (140-360); RED BLOOD COUNT 2.95 x10e6/uL (3.6-5.1); RED CELL DISTRIBUTION WIDTH 16.4 % (11.7-14.4)
[2020-05-22 06:07] LABS: ANION GAP 11.5 mmol/L (8-16); BLOOD UREA NITROGEN 27 mg/dL (7-26); BUN/CREATININE RATIO 44 (6-25); CALCIUM 8.1 mg/dL (8.4-10.2); CARBON DIOXIDE 28 mmol/L (22-29); CHLORIDE 107 mmol/L (98-107); CREATININE, SERUM 0.61 mg/dL (0.57-1.11); EST GLOMERULAR FILTRATION RATE > 60 ML/MIN (60-); GLUCOSE 81 mg/dL (74-118); POTASSIUM 4.5 mmol/L (3.5-5.1); SODIUM 142 mmol/L (136-145)
[2020-05-22 06:41] LABS: THYROID STIMULATING HORMONE 2.639 uIU/mL (0.350-4.940)
--- NOTE | 2020-05-22 07:00 | NUR ---
RECEIVED PATIENT AWAKE RESTING IN BED NO S/S OF DISTRESS. BED LOW, WHEELS LOCKED, SIDE RAILS X2. CALL LIGHT IN REACH WILL CONTINUE TO MONITOR PATIENT.
[2020-05-22] MEDS: ZINC SULFATE 220 MG CAP PO SCH (08:20)
[2020-05-22] MEDS: EYE LUBRICANT OPTH OINT 3.5GM TUBE OP SCH (08:22)
[2020-05-22] MEDS: LORATADINE 10 MG TAB PO SCH (08:38)
[2020-05-22] MEDS: METOPROLOL SUCCINATE 25 MG TAB XL PO SCH (08:39)
[2020-05-22] MEDS: ENOXAPARIN INJ 80 MG/0.8 ML SYR SC SCH (08:39)
[2020-05-22] MEDS: ASCORBIC ACID 500 MG TAB PO SCH ×2 (08:39→16:41)
[2020-05-22] MEDS: BALSAM PERU/CASTOR OIL 60 GM OINT...G. TP SCH (08:39)
[2020-05-22] MEDS: CHOLECALCIFEROL 400 UNIT TAB PO SCH (09:00)
--- NOTE | 2020-05-22 09:38 | NUR ---
NO LTAC CRITERIA ORDERS TODAY FOR HOME HEALTH AND DME PLAN DC HOME TOMORROW
--- NOTE | 2020-05-22 10:43 | Progress Note ---
DATE: 05/22/2020 Cardiology Progress Note SUBJECTIVE: The patient was discussed with nursing staff. They report she remains weak, but diet has been advanced to mechanical soft diet. No chest pain or shortness of breath are reported. OBJECTIVE: VITAL SIGNS: Temperature 98.2 degrees, pulse 83, respiratory rate 24, blood pressure 124/60, and oxygen saturation 99% on 2 L nasal cannula. The patient was not examined due to isolation for COVID-19. CARDIAC MEDICATIONS: Metoprolol succinate 25 mg p.o. daily, enoxaparin 80 mg subcu q.a.m. LABORATORY DATA: WBC 7.92, hemoglobin 8.7, hematocrit 28.5, and platelets 157. Sodium 142, potassium 4.5, chloride 107, CO2 of 28, BUN 27, creatinine 0.61. Telemetry was personally reviewed and interpreted revealing normal sinus rhythm. IMPRESSION: 1. Paroxysmal atrial fibrillation and atrial flutters, currently sinus rhythm. 2. PVCs. 3. COVID-19 pneumonia. 4. Acute hypoxic respiratory failure, secondary to above, improving. 5. Type 2 myocardial infarction. 6. Icsum-nx-hluwitn systolic heart failure. 7. History of coronary artery disease. RECOMMENDATIONS: Continue current cardiac medications. Amiodarone is on hold due to suspicion it may have contributed to the patient's erythematous rash. Monitor the patient closely on Telemetry. Continue supportive care. Management of COVID-19 per Infectious Disease. Thank you for this consult. We will continue to follow. hKloe Hayward MD [facility]/MODL /[id number]
--- NOTE | 2020-05-22 10:45 | NUR ---
WOUND CARE DONE. APPLIED STAT LOCK TO SECURE MARQUEZ CATHETER. PATIENT REPOSITIONED ONTO LEFT SIDE.
--- NOTE | 2020-05-22 13:23 | NUR ---
SPOKE WITH DR. ROUSSEAU REGARDING SPEECH REQUESTING TO DO A MODIFIED BARIUM SWALLOW. DR. ROUSSEAU SAID YES IT IS OK FOR PATIENT TO HAVE AN MBS. NEW ORDERS IMPLEMENTED.
--- NOTE | 2020-05-22 15:29 | NUR ---
Nutrition Intervention Note RD Recommendation(s) for Physician: - Continue current diet as ordered -Recommend Glucerna with meals for added nutrition as appropriate Plan of Care: RD following, monitoring for tolerance and adequacy, oral supplement recommendation Nutrition reason for involvement: follow up RD Assessment 05/22: Follow up. Pts NG tube was removed yesterday and is currently on a pureed diet. Unable to enter room due to isolation precautions. Speech therapy note indicates pt with little to no PO intake. Recommend Glucerna with meals for added nutrition as appropriate. Will continue to monitor. 05/17: Follow up. Pt continues on TF, failed swallow evaluation. Discharge planning ongoing. Chart reviewed. Current TF remains appropriate. Will continue to monitor. 05/12: Follow up. Pt was extubated on 05/10. Pts tube feed is currently at 30 mL/hr per chart. Speech therapy evaluated pts swallowing ability and recommend pt remain NPO with NG feeds at this time. Recommendations provided. Will continue to monitor. 05/08: Follow up. Pt remains intubated and sedated. Tube feeding is currently at 20 mL/hr. Recommendations provided. Will continue to monitor. 05/03: 69 YOF admitted for respiratory failure, septic shock, and covid-19. Pt evaluated today per intubation and pending TF. Pt remains intubated and sedated with 1 low dose pressor. Pt required proning yesterday. TF pending initiation. Pt appears well nourished. Chart reviewed. TF rec's provided. Will continue to monitor. Principal Problems/Diagnoses: covid-19, respiratory failure, septic shock PMH: CHF, CKD, CAD, DM GI: last recorded BM 05/21 Skin: sacrum stage II PU Labs: 05/22: Na 142, K 4.5, BUN 27, Glu 81, Cr 0.61, Ca 8.1 05/17: Na 138, K 4.4, BUN 27, Cr 0.69, Gluc 100, POC Gluc 132-154 05/12: Na 139, K 4.7, BUN 31, Cr 0.72, Glu 116, Ca 8.0 05/08: Na 142, K 4.3, BUN 58, Cr 0.83, Glu 89, Mg 2.4 05/03: Na 148, K 3.9, BUN 37, Cr 1.6, Gluc 147, POC Gluc 91-117 Meds: metoprolol, vitamin C, metoprolol, vitamin D, insulin, zinc sulfate, Ht: 62 in Wt: 221 lbs (05/17) 219 lbs (05/11) 232 lbs (05/08) 226 lb (05/03) BMI: 40.1 kg/m2 (using weight of 219 lbs) IBW: 110 lb Malnutrition Evaluation (05/17/20) Unable to assess per current isolation precautions Will re-evaluate at follow-up as appropriate. Nutrition Prescription (Diet Order): 1800 ADA/ pureed Estimated Nutritional Needs: 5830-9997 calories/day (22-25 kcal/kg IBW) 75-100 g protein/day (1.5-2 g pro/kg IBW) Diet Adequacy: not meeting calorie needs, not meeting protein needs Diet Tolerance: pt tolerating small PO trials per speech therapy note Diet Education Needs Assessment: Diet education not indicated Nutrition Care Level: moderate Nutrition Diagnosis: Inadequate energy and protein intake related to decreased ability to consume sufficient energy as evidenced by insufficient energy intake from diet compared to needs Goal: Patient will meet 75-100% of estimated needs by follow up Progress: progressing Interventions: - carbohydrate and texture-modification, Commercial beverage Monitoring/Evaluation: - Total energy intake, Total protein intake, , Weight change Signed: Salima Burr RD, LD
--- NOTE | 2020-05-22 15:58 | Progress Note ---
DATE: SUBJECTIVE: Ms. Peter is doing better. She remains on oxygen, but she is still weak. PHYSICAL EXAMINATION: GENERAL: She is currently alert and oriented. VITAL SIGNS: Stable, currently afebrile. HEENT: She is not icteric. NECK: Supple. CHEST: Clear. HEART: S1 and S2. No S3, S4, or murmur. ABDOMEN: Soft. IMPRESSION: The patient is doing well from Infectious Disease point of view. Continue with Lovenox, PT/OT. No antibiotic. Continue with diabetic control. No need to repeat the PCR. Discharge planning, the patient could be discharged to skilled care facility or home, but she would need a lot of help. She is extremely weak and debilitated. Discussed with the medical team. We will follow. MD ELIZABETH Demarco/HARDIK /[id number]
--- NOTE | 2020-05-22 16:11 | Diagnostic Imaging Report ---
PROCEDURE: X-RAY MODIFIED BARIUM SWALLOW COMPARISON: None. INDICATION: Aspiration Radiation Details: Fluoroscopy time: 1.1 minutes Cumulative dose: 7.1 mGy DISCUSSION: Fluoroscopic examination was performed in conjunction with speech pathology during swallowing a variety of thin and thick liquid consistencies. Provided images demonstrate no laryngeal penetration or aspiration. CONCLUSION: Modified barium swallow demonstrating no laryngeal penetration or aspiration. Please refer to the speech pathology report for further details. Signed by: Graciela Henning MD on 05/22/2020 4:08 PM
--- NOTE | 2020-05-22 16:14 | Progress Note ---
DATE: SUBJECTIVE: The patient is still very fatigued. She is receiving physical therapy. PHYSICAL EXAMINATION: VITAL SIGNS: The blood pressure is 110/66, saturation is 100% on 2 L. HEENT: Shows no facial swelling or erythema. CARDIAC: Reveals regular rate and rhythm with normal S1 and S2. LUNGS: Auscultation of lungs reveals crackles at the bases. There is no wheezing. ABDOMEN: Soft and nontender. There is no rebound or guarding. EXTREMITIES: Shows no leg edema or calf tenderness. There is no cyanosis or clubbing. SKIN: Shows no rashes. NEUROLOGICAL: Shows no focal abnormalities. IMPRESSION: 1. COVID-19 and viral pneumonia. 2. Atrial fibrillation. 3. Acute on chronic systolic congestive heart failure. 4. Deconditioning. 5. Diabetes. PLAN: 1. Continue physical therapy. 2. Monitor and control blood sugars. 3. Continue current cardiac regimen. 4. Discussed disposition with Dr. Espinoza and Case Management. MD NIRANJAN Artis/MODL /[id number]
[2020-05-22] MEDS: INSULIN GLARGINE 100 UNITS/ML VIAL SQ SCH (21:00)
[2020-05-23] VITALS (8 sets, daily range): BP systolic 112–134; BP diastolic 60–88
[2020-05-23] MEDS: INSULIN LISPRO 100 UNIT/1 ML 3ML VIAL SQ SCH ×6 (06:00→21:00)
--- NOTE | 2020-05-23 07:00 | NUR ---
RECEIVED PATIENT AWAKE RESTING IN BED NO S/S OF DISTRESS. BED LOW, WHEELS LOCKED, SIDE RAILS X2. CALL LIGHT IN REACH WILL CONTINUE TO MONITOR PATIENT.
[2020-05-23] MEDS: ZINC SULFATE 220 MG CAP PO SCH (09:01)
[2020-05-23] MEDS: EYE LUBRICANT OPTH OINT 3.5GM TUBE OP SCH (09:01)
[2020-05-23] MEDS: BALSAM PERU/CASTOR OIL 60 GM OINT...G. TP SCH (09:01)
[2020-05-23] MEDS: ASCORBIC ACID 500 MG TAB PO SCH ×2 (09:01→16:34)
[2020-05-23] MEDS: LORATADINE 10 MG TAB PO SCH (09:01)
[2020-05-23] MEDS: ENOXAPARIN INJ 80 MG/0.8 ML SYR SC SCH (09:01)
[2020-05-23] MEDS: METOPROLOL SUCCINATE 25 MG TAB XL PO SCH (09:01)
[2020-05-23] MEDS: CHOLECALCIFEROL 400 UNIT TAB PO SCH (09:01)
[2020-05-23] MEDS ORDERED: FLUCONAZOLE 100 MG TAB PO SCH (11:00)
[2020-05-23] MEDS ORDERED: SODIUM CHLORIDE 0.9% 250ML 250 ML ONE (11:27)
[2020-05-23] MEDS: IRON SUCROSE 100 MG in SODIUM CHLORIDE 0.9% 100 ML 100 ML IV SCH (11:41)
[2020-05-23] MEDS: NYSTATIN SUSPENSION 5 ML UDC PO SCH ×2 (11:41→17:27)
--- NOTE | 2020-05-23 12:37 | NUR ---
Called and spoke to pt's daughter Kate Velasquez [phone] regarding dc plan. She states that the family is aware of all the help pt will need at home. States they have enough family members to assist. States they have bought a wheelchair, walker, bedside commode, and have a bed coming in tomorrow. States the family wants to take pt home with home health. Said they used [facility] previously and would like to use them again if possible. If not, then it was ok to use any company that takes pt's insurance. Informed her that [facility] takes all [employer] plans. She states she was fine with us using them if [facility] cannot take her. Prefers Czech speaking staff for nursing and therapy. CM also informed her that PT was recommending [facility] and that pt may need oxygen. Kate bennett can use any company. Choice given for [facility]. Choice letters placed in front of chart for [facility], [facility], and [facility]. RADHA called and spoke to Rox with [facility]. States she will see if they have staff that can take COVID pt and let CM know. Callback number left.
--- NOTE | 2020-05-23 12:44 | Progress Note ---
DATE: 05/23/2020 Cardiology Progress Note SUBJECTIVE: The patient was discussed with nursing staff. No chest pain or shortness of breath was reported. She is pending placement at SNF. PHYSICAL EXAMINATION: VITAL SIGNS: Temperature 98.6 degrees, pulse 84, respiratory rate 20, blood pressure 115/66, oxygen saturation 100% on 2 L nasal cannula The patient was not examined due to isolation for COVID-19. CARDIAC MEDICATIONS: 1. Enoxaparin 80 mg subcu daily. 2. Metoprolol succinate 25 mg p.o. daily. LABORATORY DATA: None today. TELEMETRY: Telemetry was personally reviewed and interpreted revealing normal sinus rhythm. IMPRESSION: 1. Paroxysmal atrial fibrillation, atrial flutter, currently sinus rhythm. 2. PVCs. 3. COVID-19 pneumonia. 4. Acute hypoxic respiratory failure secondary to above, improving. 5. Type 2 myocardial infarction. 6. Eutxt-fp-dpctktb systolic heart failure. 7. History of coronary artery disease. RECOMMENDATIONS: Continue current cardiac medications. Amiodarone is on hold as it was suspected to have caused the patient's erythematous rash. Monitor the patient closely on telemetry. Continue supportive care. Management of COVID-19 per Infectious Disease. PT and OT as tolerated. Thank you for this consult. We will continue to follow. Khloe Hayward MD [facility]/MODL /[id number]
--- NOTE | 2020-05-23 13:10 | NUR ---
REMOVED PATIENTS MARQUEZ. CATHETER TIP INTACT ON REMOVAL. PATIENT DUE TO VOID.
--- NOTE | 2020-05-23 13:24 | Progress Note ---
DATE: Pulmonary Critical Care Progress Note SUBJECTIVE: The patient is still very weak. She needs assistance to stand and walk. PHYSICAL EXAMINATION: VITAL SIGNS: Stable. Saturation is 100% on 2 L. HEENT: Shows no facial swelling or erythema. CARDIAC: Reveals regular rate and rhythm with a normal S1 and S2. There are no murmurs or rubs. LUNGS: Auscultation of the lungs reveals crackles at the bases. There is no wheezing. ABDOMEN: Soft and nontender. IMPRESSION: 1. Myopathy of critical illness. 2. COVID-19 and viral pneumonia. 3. Atrial fibrillation. 4. Juuex-fe-utpgeqo systolic congestive heart failure. 5. Diabetes. PLAN: 1. Continue current therapy. 2. Monitor and control blood sugars. 3. Continue current cardiac regimen. 4. Case discussed with Dr. Espinoza. Family is still hoping to take the patient home as opposed to using SNF. MD NIRANJAN Artis/HARDIK /[id number]
--- NOTE | 2020-05-23 14:21 | NUR ---
RADHA called and spoke with Rox with intake at [facility]. Confirmed that they can accept COVID positive pts. Informed her CM will be sending referral for pt. Referral faxed to [phone] / [facility] order faxed to [facility] at [phone] / . Jose Angel landin [facility] was notified of referral.
--- NOTE | 2020-05-23 17:50 | Progress Note ---
DATE: SUBJECTIVE: Ms. Peter remains very weak. There is evaluation for her tube. She can eat. There are no new complaints. PHYSICAL EXAMINATION: GENERAL: She is currently alert and oriented, but weak. VITAL SIGNS: Stable, afebrile. HEENT: She is not icteric. NECK: Supple. CHEST: Clear. Obese. ABDOMEN: Soft. Bowel sounds present. No tenderness. EXTREMITIES: No edema. SKIN: No rash. IMPRESSION: 1. Debility. 2. Myopathy. 3. Obesity. 4. Status post COVID-19. 5. Atrial fibrillation. 6. Diabetes mellitus. The patient is clinically stable. We are looking for discharge planning, if she can eat, where she can go home with physical therapy. SNF depending on the family wishes, but she certainly would need PT/OT. This is day #23. There is no need to repeat PCR. The patient could be assume that she is not infectious, however, continue with droplet isolation for the time being. MD ELIZABETH Demarco/MODL /[id number]
[2020-05-23] MEDS: INSULIN GLARGINE 100 UNITS/ML VIAL SQ SCH (21:00)
--- NOTE | 2020-05-23 21:00 | NUR ---
PATIENT VOIDED IN THE DIAPER.REPOSITIONED.DIAPER CHANGED.CLEANSED WITH SOAP AND WATER.ALLEVYN FOAM APPLIED .ASSESSMENT DONE.NO RESP.DISTRESS.PHONE AND CALL LIGHT WITHIN REACH.INSTRUCTED TO CALL FOR ASSISTANCE NEEDED.
[2020-05-24] VITALS: BP 137/64
[2020-05-24] MEDS: NYSTATIN SUSPENSION 5 ML UDC PO SCH ×4 (00:17→17:30)
[2020-05-24 04:00] VITALS: BP 130/61
--- NOTE | 2020-05-24 06:47 | NUR ---
REPORT GIVEN TO ONCOMING RN.STABLE CONDITION.
--- NOTE | 2020-05-24 07:00 | NUR ---
RECEIVED PATIENT AWAKE RESTING IN BED NO S/S OF DISTRESS. BED LOW, WHEELS LOCKED, SIDE RAILS X2. CALL LIGHT IN REACH WILL CONTINUE TO MONITOR PATIENT.
[2020-05-24] MEDS: INSULIN LISPRO 100 UNIT/1 ML 3ML VIAL SQ SCH ×3 (07:30→16:15)
--- NOTE | 2020-05-24 08:34 | NUR ---
Called [facility] [phone] and spoke to Rox who states they will accept pt.
[2020-05-24] MEDS: EYE LUBRICANT OPTH OINT 3.5GM TUBE OP SCH (08:52)
[2020-05-24] MEDS: ENOXAPARIN INJ 80 MG/0.8 ML SYR SC SCH (08:53)
[2020-05-24] MEDS: ASCORBIC ACID 500 MG TAB PO SCH ×2 (08:53→16:35)
[2020-05-24] MEDS: METOPROLOL SUCCINATE 25 MG TAB XL PO SCH (08:53)
[2020-05-24] MEDS: LORATADINE 10 MG TAB PO SCH (08:53)
[2020-05-24] MEDS: CHOLECALCIFEROL 400 UNIT TAB PO SCH (08:53)
[2020-05-24] MEDS: ZINC SULFATE 220 MG CAP PO SCH (08:53)
[2020-05-24] MEDS: BALSAM PERU/CASTOR OIL 60 GM OINT...G. TP SCH (08:53)
[2020-05-24 09:00] VITALS: BP 123/55
[2020-05-24] MEDS ORDERED: FLUCONAZOLE 100 MG TAB PO SCH (09:00)
[2020-05-24 09:01] VITALS: BP 123/55
--- NOTE | 2020-05-24 09:17 | NUR ---
[facility] is unable to provide veronica lift. Home O2 eval was completed. Pt 96% on RA and unable to be exerted. CM called and spoke with pt's daughter Kate [phone]. Informed her that pt does not qualify for home oxygen at this time and that [facility] was unable to complete order for veronica lift. States can try to order veronica thru [facility]. Daughter states that if they are unable to order thru insurance, she will buy one herself. Also notified her that plan is to discharge today. Gave her [facility]'s contact information and informed her they will be accepting pt. Signed choice letter placed in front of chart. Referral faxed to [facility] at [phone] / . Called and spoke with Rox at [facility] and informed of discharge today.
--- NOTE | 2020-05-24 10:12 | NUR ---
Received call from Rox with [facility]. States they don't have OT and ST so they will not be able to accept pt. RADHA called and informed pt's daughter Kate Velasquez. States can use [facility]. [facility] contact information was given to Ms. Velasquez. [facility]HA called and spoke to Kenzie Monet with [facility]. They are able to accept COVID + pts and have PT/OT/ST. Informed her of referral and dc for today. Referral faxed to [phone] /
[2020-05-24] MEDS: IRON SUCROSE 100 MG in SODIUM CHLORIDE 0.9% 100 ML 100 ML IV SCH (11:46)
[2020-05-24 11:48] VITALS: BP 105/62
--- NOTE | 2020-05-24 12:23 | NUR ---
PATIENT ON RA O2 SATS 95%. NO S/S OF DISTRESS. RESPIRATIONS EVEN AND UNLABORED.
--- NOTE | 2020-05-24 14:08 | NUR ---
Per Kenzie with [facility], they will be accepting pt. The office will reach out to family today. [facility] called and said they cannot fill order for veronica lift. Reached out to [facility], who also said they cannot. Cm called and spoke to pt's daughter Kate [phone]. Informed her that [facility] will be accepting pt and will be calling them today. Also informed her that 3 companies said they could not provide the veronica lift. She states that was fine, they will get one. She provided number for pt's granddaughter Roberta Deng [phone], in case we cannot get ahold of her, since she's about to go back into work.
[2020-05-24] MEDS ORDERED: ASCORBIC ACID500 MG PO (14:19)
[2020-05-24] MEDS ORDERED: duoneb INH (14:19)
[2020-05-24] MEDS ORDERED: vit d3 PO (14:21)
[2020-05-24] MEDS ORDERED: LOVENOX80 MG/0.8 SC (14:22)
[2020-05-24] MEDS ORDERED: DIFLUCAN100 MG PO (14:22)
[2020-05-24] MEDS ORDERED: CLARITIN10 MG PO (14:24)
[2020-05-24] MEDS ORDERED: ZINC SULFATE220 M1 PO (14:25)
[2020-05-24] MEDS ORDERED: NYSTATIN100000 UNI PO (14:25)
[2020-05-24] MEDS ORDERED: PULMICORT90 MCG/AER INH (14:26)
[2020-05-24] MEDS ORDERED: atarax PO (14:33)
--- NOTE | 2020-05-24 14:58 | Progress Note ---
DATE: Cardiology Progress Note SUBJECTIVE: The patient was discussed with nursing staff. She does not complain of any chest pain or shortness of breath. The patient will be discharged home today. OBJECTIVE: VITAL SIGNS: Temperature 97.7, pulse 77, respiratory rate 20, blood pressure 105/62, O2 saturation 95% on room air. The patient was not examined due to isolation for COVID-19. CARDIAC MEDICATIONS: Metoprolol succinate 25 mg p.o. daily and enoxaparin 80 mg subcu daily. LABORATORY DATA: None today. TELEMETRY: Telemetry was personally reviewed and interpreted revealing normal sinus rhythm with PVCs. IMPRESSION: 1. Paroxysmal atrial fibrillation and flutter, currently in sinus rhythm. 2. Premature ventricular contractions. 3. Coronavirus disease-19 pneumonia. 4. Acute hypoxic respiratory failure secondary to above, improving. 5. Type 2 myocardial infarction. 6. Acute on chronic systolic heart failure. 7. History of coronary artery disease. RECOMMENDATIONS: Continue current cardiac medications. Amiodarone is on hold as it was suspected to have consultations erythematous rash. Monitor patient closely on telemetry while admitted. Continue supportive care. Management of COVID-19 per Infectious Disease. PT and OT as tolerated. Recommend resuming aspirin, statin, and Plavix upon discharge. Thank you for this consult. We will continue to follow. Khloe Hayward MD [facility] /[id number]
--- NOTE | 2020-05-24 15:10 | NUR ---
REMOVED PATIENTS IJ. CATHETER TIP INTACT ON REMOVAL AND PRESSURE DRESSING APPLIED.
--- NOTE | 2020-05-24 15:49 | Progress Note ---
DATE: SUBJECTIVE: The patient is still requiring assistance of physical therapy. There is no fever. PHYSICAL EXAMINATION: VITAL SIGNS: The patient is afebrile. The blood pressure is 105/62, saturation is 95%. HEENT: Shows no facial swelling or erythema. CARDIAC: Reveals regular rate and rhythm with normal S1 and S2. LUNGS: Auscultation of lungs reveals clear breath sounds bilaterally. There is no wheezing. ABDOMEN: Soft and nontender. There is no rebound or guarding. EXTREMITIES: Shows no leg edema or calf tenderness. There is no cyanosis or clubbing. SKIN: Shows no rashes. NEUROLOGICAL: Shows no focal abnormalities. LABORATORY DATA: White blood cell count is 7.9, hemoglobin is 8.7. The platelet count is 157. IMPRESSION: 1. Myopathy of critical illness. 2. COVID-19 and viral pneumonia. 3. Acute on chronic systolic congestive heart failure. 4. Atrial fibrillation. 5. Diabetes. PLAN: 1. Arrangements are being made for discharge home. 2. Continue to monitor and control blood sugars. 3. Home health with physical therapy. 4. Continue current cardiac regimen. Ayush Welch MD [facility] /[id number]
[2020-05-24 16:09] VITALS: BP 121/70
--- NOTE | 2020-05-24 19:00 | NUR ---
Received the patient in report.pee in the bed.waiting for ambulance to go home.
--- NOTE | 2020-05-24 20:25 | NUR ---
v/s stable .discharge assessment done.no resp.distress.no pain voiced.sending home via ambulance in a stable condition .sent all the belongings including discharge documents with patient .notified to family member.
== END 2020-05-24 20:22 | disposition home health service (06) | DRG 870 ==
LOC: ER 20:49 → ERHOLD 21:28 → INTOOBSV 21:28 → OBSVTOIN 21:28 → UNDOADMIN 05-01 06:42 → ERHOLD 05-01 06:42 → ICU 05-01 10:51 → IMCU 05-11 20:53
PROVIDERS: ADMIT Internal Medicine; ATTEND Internal Medicine
PROC: 5A1955Z Respiratory Ventilation, Greater than 96 Consecutive Hours (ICD-10-PCS; principal; 2020-04-30)
PROC: 0BH18EZ Insertion of Endotracheal Airway into Trachea, Via Natural or Artificial Opening Endoscopic (ICD-10-PCS; 2020-04-30)
PROC: 02HV33Z Insertion of Infusion Device into Superior Vena Cava, Percutaneous Approach (ICD-10-PCS; 2020-04-30)
DX: A41.9 Sepsis, unspecified organism (principal); U07.1 COVID-19; J12.9 Viral pneumonia, unspecified; I50.23 Acute on chronic systolic (congestive) heart failure; J96.01 Acute respiratory failure with hypoxia; J15.9 Unspecified bacterial pneumonia; N17.0 Acute kidney failure with tubular necrosis; E11.10 Type 2 diabetes mellitus with ketoacidosis without coma; I21.A1 Myocardial infarction type 2; R65.21 Severe sepsis with septic shock; Z99.11 Dependence on respirator [ventilator] status; N39.0 Urinary tract infection, site not specified; I48.92 Unspecified atrial flutter; I42.8 Other cardiomyopathies; I13.0 Hypertensive heart and chronic kidney disease with heart failure and stage 1 through stage 4 chronic kidney disease, or unspecified chronic kidney disease; I25.10 Atherosclerotic heart disease of native coronary artery without angina pectoris; Z95.5 Presence of coronary angioplasty implant and graft; E78.5 Hyperlipidemia, unspecified; K52.9 Noninfective gastroenteritis and colitis, unspecified; D64.9 Anemia, unspecified; E83.51 Hypocalcemia; R13.10 Dysphagia, unspecified; E66.01 Morbid (severe) obesity due to excess calories; Z68.39 Body mass index [BMI] 39.0-39.9, adult; K12.1 Other forms of stomatitis; G72.9 Myopathy, unspecified; R21 Rash and other nonspecific skin eruption; E11.22 Type 2 diabetes mellitus with diabetic chronic kidney disease; N18.9 Chronic kidney disease, unspecified; Z79.4 Long term (current) use of insulin
CPT/HCPCS: 31500; 36415; 36555; 36600; 51700; 70450; 71045; 71250; 74018; 74230; 80048; 80053; 80061; 81001; 82140; 82550; 82553; 82607; 82746; 82805; 82948; 83036; 83540; 83605; 83735; 83880; 84100; 84145; 84443; 84466; 84484; 85025; 85610; 85730; 86140; 87040; 87070; 87086; 87205; 87493; 93005; 93306; 93930; 93970; 94002; 94003; 94640; 94667; 94668; 96361; 96372; 97139; 99251; 99285; J0330; J0456; J0610; J0696; J1100; J1650; J1756; J1815; J1817; J1940; J2020; J2250; J3410; J3475; J3480; J7030; J7050; J7799; P9047; U0002

== ENCOUNTER 2020-10-03 11:56 | Inpatient (IN) | payer MEDICARE ==
[~2020-10-03] VITALS: Ht 157.5 cm; Wt 98.9 kg
[~2020-10-03 11:56] MED LIST changes: +ASCORBIC ACID500 MG PO; +CLARITIN10 MG PO; +DIFLUCAN100 MG PO; -ETOMIDATE 2 MG/ML 10 ML INJ IV ONE; +LOVENOX80 MG/0.8 SC; -MIDAZOLAM HCL 2 MG/2 ML VIAL ONE; +NYSTATIN100000 UNI PO; +PULMICORT90 MCG/AER INH; -SUCCINYLCHOLINE CHLORIDE 20 MG/ML 10ML VIAL ONE; +ZINC SULFATE220 M1 PO; +atarax PO; +duoneb INH; +vit d3 PO
[2020-10-03] MEDS ORDERED: ACETAMINOPHEN 325 MG TAB PO ONE (12:15)
[2020-10-03 12:30] LABS: BASOPHILS % 0.2 % (0.0-1.0); EOSINOPHILS # (AUTO) 0.1 (0.0-0.4); EOSINOPHILS % 1.2 % (0.0-6.0); HEMATOCRIT 45.6 % (34.2-44.1); HEMOGLOBIN 14.1 g/dL (12.0-16.0); LYMPHOCYTES % 8.8 % (18.0-39.1); MEAN CORPUSCULAR HEMOGLOBIN 29.1 pg (28-32); MEAN CORPUSCULAR HGB CONC 30.9 g/dL (31-35); MONOCYTES # (AUTO) 0.1 (0.2-0.8); MONOCYTES % 0.9 % (4.4-11.3); NEUTROPHILS # (AUTO) 9.5 (2.1-6.9); NEUTROPHILS % 88.2 % (38.7-80.0); PLATELET COUNT 147 x10e3/uL (140-360); RED BLOOD COUNT 4.85 x10e6/uL (3.6-5.1); RED CELL DISTRIBUTION WIDTH 14.3 % (11.7-14.4)
[2020-10-03 12:40] LABS: INR 0.96; PROTHROMBIN TIME 13.3 seconds (11.9-14.5)
[2020-10-03 12:50] LABS: ALBUMIN 3.8 g/dL (3.5-5.0); ALBUMIN/GLOBULIN RATIO 0.8 (0.8-2.0); ANION GAP 20.1 mmol/L (8-16); CALCIUM 8.9 mg/dL (8.4-10.2); CREATININE, SERUM 1.32 mg/dL (0.57-1.11); MAGNESIUM 1.9 MG/DL (1.3-2.1); POTASSIUM 5.1 mmol/L (3.5-5.1)
[2020-10-03 12:58] LABS: CREATINE KINASE MB 1.3 ng/mL (0-5.0)
[2020-10-03 13:17] LABS: BILIRUBIN,URINE NEGATIVE (NEGATIVE); CLARITY,URINE CLEAR (CLEAR); COLOR,URINE YELLOW (YELLOW); KETONES,URINE NEGATIVE (NEGATIVE); LEUKOCYTE ESTERASE ,URINE MODERATE (NEGATIVE); NITRITE,URINE POSITIVE (NEGATIVE); PROTEIN,URINE DIPSTICK NEGATIVE (NEGATIVE); URINE UROBILINOGEN 0.2 mg/dL (0.2 - 1)
[2020-10-03 13:39] LABS: BACTERIA,URINE MANY /HPF; RBC,URINE 0-5 /HPF (0-5)
[2020-10-03] MEDS ORDERED: FUROSEMIDE INJ 10 MG/ML 2 ML VIAL IV ONE (14:30)
[2020-10-03] MEDS ORDERED: AZITHROMYCIN 500MG/NS 250 ML 250 ML IV SCH (15:00)
[2020-10-03] MEDS: CEFTRIAXONE SOD 1 GM/NS 50 ML 50 ML IV SCH (15:06)
[2020-10-03] MEDS ORDERED: DEXTROSE 50% SYRINGE 50 ML IV PRN (15:15)
[2020-10-03] MEDS: INSULIN LISPRO 100 UNIT/1 ML 3ML VIAL SQ SCH ×2 (16:30→21:00)
[2020-10-03 17:07] VITALS: BP 94/50
[2020-10-03 17:27] VITALS: BP 94/50
[2020-10-03 20:00] VITALS: BP 100/48
[2020-10-03] MEDS: FUROSEMIDE INJ 10 MG/ML 4 ML VIAL IV SCH (20:27)
[2020-10-03 20:29] LABS: CREATINE KINASE MB 0.9 ng/mL (0-5.0)
[2020-10-03 22:04] VITALS: BP 94/50
[2020-10-04] VITALS (7 sets, daily range): BP systolic 113–131; BP diastolic 40–60
[2020-10-04 05:19] LABS: BASOPHILS % 0.4 % (0.0-1.0); EOSINOPHILS # (AUTO) 0.3 (0.0-0.4); EOSINOPHILS % 2.3 % (0.0-6.0); HEMATOCRIT 39.2 % (34.2-44.1); HEMOGLOBIN 12.2 g/dL (12.0-16.0); LYMPHOCYTES # (AUTO) 2.4 (1.0-3.2); LYMPHOCYTES % 21.3 % (18.0-39.1); MEAN CORPUSCULAR HEMOGLOBIN 29.3 pg (28-32); MEAN CORPUSCULAR HGB CONC 31.1 g/dL (31-35); MEAN CORPUSCULAR VOLUME 94.2 fL (81-99); MONOCYTES # (AUTO) 1.1 (0.2-0.8); NEUTROPHILS # (AUTO) 7.3 (2.1-6.9); NEUTROPHILS % 65.7 % (38.7-80.0); PLATELET COUNT 170 x10e3/uL (140-360); RED BLOOD COUNT 4.16 x10e6/uL (3.6-5.1)
[2020-10-04 05:49] LABS: ALBUMIN 3.2 g/dL (3.5-5.0); ALBUMIN/GLOBULIN RATIO 0.9 (0.8-2.0); ANION GAP 15.8 mmol/L (8-16); CALCIUM 8.3 mg/dL (8.4-10.2); CREATININE, SERUM 1.44 mg/dL (0.57-1.11); POTASSIUM 3.8 mmol/L (3.5-5.1)
[2020-10-04 06:12] LABS: CREATINE KINASE MB 0.9 ng/mL (0-5.0)
[2020-10-04] MEDS: INSULIN LISPRO 100 UNIT/1 ML 3ML VIAL SQ SCH ×4 (07:30→20:14)
[2020-10-04] MEDS ORDERED: POTASSIUM CHLORIDE 20 MEQ TAB CR PO PRN (11:15)
[2020-10-04] MEDS ORDERED: DOCUSATE SODIUM 100 MG CAP PO PRN (11:15)
[2020-10-04] MEDS ORDERED: GUAIFENESIN/CODEINE 10 ML CUP PO PRN (11:15)
[2020-10-04] MEDS ORDERED: HYDRALAZINE HCL 20 MG/ML VIAL IV PRN (11:15)
[2020-10-04] MEDS ORDERED: SIMETHICONE 80 MG CHEW PO PRN (11:15)
[2020-10-04] MEDS ORDERED: CHLORASEPTIC SPRAY 177 ML BTL MM PRN (11:15)
[2020-10-04] MEDS ORDERED: DEXTROSE 50% SYRINGE 50 ML IV PRN (11:15)
[2020-10-04] MEDS ORDERED: POLYETHYLENE GLYCOL 3350 17 GM PACK PO PRN (11:15)
[2020-10-04] MEDS ORDERED: ALBUTEROL/IPRATROPIUM 3 ML NEB NEB PRN (11:15)
[2020-10-04] MEDS ORDERED: TRAMADOL HCL 50 MG TAB PO PRN (11:15)
[2020-10-04] MEDS: FUROSEMIDE INJ 10 MG/ML 4 ML VIAL IV SCH ×2 (11:58→20:27)
[2020-10-04 13:29] LABS: CREATINE KINASE MB 1.1 ng/mL (0-5.0)
[2020-10-04] MEDS: CEFTRIAXONE SOD 1 GM/NS 50 ML 50 ML IV SCH (16:18)
[2020-10-04] MEDS: ASCORBIC ACID 500 MG TAB PO SCH (18:33)
[2020-10-04] MEDS: ZINC SULFATE 220 MG CAP PO SCH (18:34)
[2020-10-04] MEDS: ENOXAPARIN SOD INJ 40 MG/0.4 ML SYR SC SCH (18:34)
[2020-10-04] MEDS: ATORVASTATIN 20 MG TAB PO SCH (20:27)
[2020-10-05] VITALS (9 sets, daily range): BP systolic 96–144; BP diastolic 40–80
[2020-10-05 05:46] LABS: BASOPHILS % 0.2 % (0.0-1.0); EOSINOPHILS # (AUTO) 0.4 (0.0-0.4); EOSINOPHILS % 3.8 % (0.0-6.0); HEMATOCRIT 40.1 % (34.2-44.1); HEMOGLOBIN 12.5 g/dL (12.0-16.0); LYMPHOCYTES # (AUTO) 1.9 (1.0-3.2); LYMPHOCYTES % 19.3 % (18.0-39.1); MEAN CORPUSCULAR HEMOGLOBIN 29.1 pg (28-32); MEAN CORPUSCULAR HGB CONC 31.2 g/dL (31-35); MEAN CORPUSCULAR VOLUME 93.5 fL (81-99); MONOCYTES # (AUTO) 1.1 (0.2-0.8); MONOCYTES % 10.9 % (4.4-11.3); NEUTROPHILS # (AUTO) 6.5 (2.1-6.9); NEUTROPHILS % 65.5 % (38.7-80.0); PLATELET COUNT 163 x10e3/uL (140-360); RED BLOOD COUNT 4.29 x10e6/uL (3.6-5.1); RED CELL DISTRIBUTION WIDTH 13.9 % (11.7-14.4)
[2020-10-05 06:10] LABS: ALBUMIN 3.5 g/dL (3.5-5.0); ALBUMIN/GLOBULIN RATIO 0.9 (0.8-2.0); ANION GAP 15.5 mmol/L (8-16); CALCIUM 8.7 mg/dL (8.4-10.2); CREATININE, SERUM 1.44 mg/dL (0.57-1.11); POTASSIUM 3.5 mmol/L (3.5-5.1)
[2020-10-05 06:58] LABS: CHOL/HDL RATIO 4.3 (3.0-3.6)
[2020-10-05] MEDS: INSULIN LISPRO 100 UNIT/1 ML 3ML VIAL SQ SCH ×4 (07:30→21:00)
[2020-10-05] MEDS: PANTOPRAZOLE SOD 40 MG TABEC PO SCH (09:31)
[2020-10-05] MEDS: ASPIRIN 81 MG CHEW TAB PO SCH (09:32)
[2020-10-05] MEDS: LORATADINE 10 MG TAB PO SCH (09:32)
[2020-10-05] MEDS: FUROSEMIDE INJ 10 MG/ML 4 ML VIAL IV SCH ×2 (09:32→21:00)
[2020-10-05] MEDS: ASCORBIC ACID 500 MG TAB PO SCH ×2 (09:33→19:00)
[2020-10-05] MEDS: ZINC SULFATE 220 MG CAP PO SCH ×2 (09:33→19:00)
[2020-10-05] MEDS: CLOPIDOGREL BISULFATE 75 MG TAB PO SCH (09:33)
[2020-10-05] MEDS: METOPROLOL TARTRATE 50 MG TAB PO SCH (09:33)
[2020-10-05] MEDS: MEROPENEM 500MG/ NS 50ML 50 ML IV SCH ×2 (15:05→23:20)
[2020-10-05] MEDS: ENOXAPARIN SOD INJ 40 MG/0.4 ML SYR SC SCH (19:00)
[2020-10-05] MEDS ORDERED: DIPHENHYDRAMINE HCL ELIX 12.5 MG/5 ML UDC PO PRN (20:45)
[2020-10-05] MEDS: ONDANSETRON HCL INJ 2MG/ML 2ML 2 MG/ML VIAL IV PRN (21:33)
[2020-10-05] MEDS: ATORVASTATIN 20 MG TAB PO SCH (21:35)
[2020-10-06] VITALS (7 sets, daily range): BP systolic 91–124; BP diastolic 43–82
[2020-10-06] MEDS: MEROPENEM 500MG/ NS 50ML 50 ML IV SCH ×2 (06:00)
[2020-10-06] MEDS ORDERED: SODIUM CHLORIDE 0.9% 250ML 250 ML ONE (06:05)
[2020-10-06 06:08] LABS: BASOPHILS # (AUTO) 0.1 (0.0-0.1); BASOPHILS % 0.3 % (0.0-1.0); EOSINOPHILS # (AUTO) 0.1 (0.0-0.4); EOSINOPHILS % 0.6 % (0.0-6.0); HEMATOCRIT 45.4 % (34.2-44.1); HEMOGLOBIN 14.2 g/dL (12.0-16.0); LYMPHOCYTES # (AUTO) 0.3 (1.0-3.2); LYMPHOCYTES % 1.2 % (18.0-39.1); MEAN CORPUSCULAR HEMOGLOBIN 29.3 pg (28-32); MEAN CORPUSCULAR HGB CONC 31.3 g/dL (31-35); MEAN CORPUSCULAR VOLUME 93.6 fL (81-99); MONOCYTES # (AUTO) 0.2 (0.2-0.8); NEUTROPHILS # (AUTO) 21.1 (2.1-6.9); NEUTROPHILS % 96.2 % (38.7-80.0); PLATELET COUNT 177 x10e3/uL (140-360); RED BLOOD COUNT 4.85 x10e6/uL (3.6-5.1); RED CELL DISTRIBUTION WIDTH 14.2 % (11.7-14.4)
[2020-10-06 06:37] LABS: ANION GAP 20.4 mmol/L (8-16); CALCIUM 8.5 mg/dL (8.4-10.2)
[2020-10-06 06:54] LABS: CREATININE, SERUM 2.71 mg/dL (0.57-1.11); POTASSIUM 4.4 mmol/L (3.5-5.1)
[2020-10-06] MEDS: INSULIN LISPRO 100 UNIT/1 ML 3ML VIAL SQ SCH ×3 (07:40→20:35)
[2020-10-06] MEDS: CLOPIDOGREL BISULFATE 75 MG TAB PO SCH (08:02)
[2020-10-06] MEDS: ASPIRIN 81 MG CHEW TAB PO SCH (08:02)
[2020-10-06] MEDS: PANTOPRAZOLE SOD 40 MG TABEC PO SCH (08:02)
[2020-10-06] MEDS: ASCORBIC ACID 500 MG TAB PO SCH ×2 (08:02→17:23)
[2020-10-06] MEDS: METOPROLOL TARTRATE 50 MG TAB PO SCH (08:02)
[2020-10-06] MEDS: ZINC SULFATE 220 MG CAP PO SCH ×2 (08:02→17:23)
[2020-10-06] MEDS: LORATADINE 10 MG TAB PO SCH (08:08)
[2020-10-06] MEDS ORDERED: NON-FORMULARY MEDICATION IV SCH (15:00)
[2020-10-06] MEDS: ACETAMINOPHEN 325 MG TAB PO PRN (15:11)
[2020-10-06] MEDS: ENOXAPARIN SOD INJ 40 MG/0.4 ML SYR SC SCH (17:23)
[2020-10-06] MEDS ORDERED: SODIUM CHLORIDE 0.9% 1000ML 1,000 ML ONE (19:48)
[2020-10-06] MEDS: ONDANSETRON HCL INJ 2MG/ML 2ML 2 MG/ML VIAL IV PRN (19:52)
[2020-10-06] MEDS: ATORVASTATIN 20 MG TAB PO SCH (21:57)
[2020-10-07] VITALS (39 sets, daily range): BP systolic 51–133; BP diastolic 12–75
[2020-10-07] MEDS ORDERED: SODIUM CHLORIDE 0.9% 1000ML 1,000 ML IV ONE (05:15)
[2020-10-07] MEDS ORDERED: MIDODRINE 2.5 MG TAB PO SCH (05:15)
[2020-10-07] MEDS ORDERED: DIGOXIN INJ 0.25 MG/ML 2 ML AMP IV ONE (06:00)
[2020-10-07] MEDS ORDERED: AMIODARONE 900MG 500 ML IV ONE ×2 (06:32→07:29)
[2020-10-07] MEDS ORDERED: AMIODARONE HCL 100 ML IV ONE (06:32)
[2020-10-07] MEDS ORDERED: SODIUM CHLORIDE 0.9% 1000ML 1,000 ML ONE (06:51)
[2020-10-07] MEDS: INSULIN LISPRO 100 UNIT/1 ML 3ML VIAL SQ SCH ×4 (07:30→22:39)
[2020-10-07] MEDS: SODIUM CHLORIDE 0.9% 100 ML 100 ML IV SCH ×2 (07:49→16:46)
[2020-10-07] MEDS: PANTOPRAZOLE SOD 40 MG TABEC PO SCH (08:03)
[2020-10-07] MEDS: MIDODRINE 2.5 MG TAB PO SCH ×3 (08:03→16:12)
[2020-10-07 08:04] LABS: BASOPHILS # (AUTO) 0.2 (0.0-0.1); BASOPHILS % 0.7 % (0.0-1.0); EOSINOPHILS # (AUTO) 0.4 (0.0-0.4); EOSINOPHILS % 1.8 % (0.0-6.0); HEMATOCRIT 46.8 % (34.2-44.1); HEMOGLOBIN 14.3 g/dL (12.0-16.0); LYMPHOCYTES # (AUTO) 0.6 (1.0-3.2); LYMPHOCYTES % 2.4 % (18.0-39.1); MEAN CORPUSCULAR HEMOGLOBIN 29.8 pg (28-32); MEAN CORPUSCULAR HGB CONC 30.6 g/dL (31-35); MEAN CORPUSCULAR VOLUME 97.5 fL (81-99); MONOCYTES # (AUTO) 0.5 (0.2-0.8); MONOCYTES % 2.1 % (4.4-11.3); NEUTROPHILS # (AUTO) 21.9 (2.1-6.9); NEUTROPHILS % 90.6 % (38.7-80.0); PLATELET COUNT 126 x10e3/uL (140-360); RED CELL DISTRIBUTION WIDTH 14.6 % (11.7-14.4)
[2020-10-07] MEDS: ASPIRIN 81 MG CHEW TAB PO SCH (08:04)
[2020-10-07] MEDS: ASCORBIC ACID 500 MG TAB PO SCH ×2 (08:04→16:12)
[2020-10-07] MEDS: CLOPIDOGREL BISULFATE 75 MG TAB PO SCH (08:04)
[2020-10-07] MEDS: LORATADINE 10 MG TAB PO SCH (08:04)
[2020-10-07] MEDS: ZINC SULFATE 220 MG CAP PO SCH ×2 (08:04→16:12)
[2020-10-07] MEDS ORDERED: MEROPENEM 1GRAM 1 GM in SODIUM CHLORIDE 0.9% 100 ML 100 ML IV ONE (08:15)
[2020-10-07 08:21] LABS: ANION GAP 26.6 mmol/L (8-16); CALCIUM 7.9 mg/dL (8.4-10.2); POTASSIUM 4.6 mmol/L (3.5-5.1)
[2020-10-07 08:33] LABS: CREATININE, SERUM 5.22 mg/dL (0.57-1.11)
[2020-10-07] MEDS: METOPROLOL TARTRATE 50 MG TAB PO SCH (09:00)
[2020-10-07] MEDS: DIPHENHYDRAMINE HCL 25 MG CAP PO PRN (09:06)
[2020-10-07] MEDS ORDERED: DIPHENHYDRAMINE HCL 25 MG/10 ML CUP PO NR (09:15)
[2020-10-07] MEDS ORDERED: LIDOCAINE HCL 2% LOCAL 20 ML VIAL ONE (09:28)
[2020-10-07] MEDS ORDERED: NOREPINEPHRINE 8 MG/D5W 250 ML 250 ML ONE (10:07)
[2020-10-07] MEDS ORDERED: SODIUM BICARBONATE 8.4% SYRING 50 ML ONE (10:50)
[2020-10-07] MEDS ORDERED: SODIUM BICARBONATE 8.4% INJ 50 ML SYR IV NR ×2 (11:00)
[2020-10-07] MEDS ORDERED: SODIUM BICARBONATE 8.4% 150 ML in DEXTROSE 5% 1,000 ML IV SCH (11:00)
[2020-10-07] MEDS ORDERED: SODIUM CHLORIDE 0.9% 500ML 500 ML IV ONE ×2 (11:30)
[2020-10-07] MEDS: SODIUM BICARBONATE 8.4% 150 ML in DEXTROSE 5% 1,000 ML IV SCH ×2 (11:48→22:39)
[2020-10-07] MEDS: HYDROCORTISONE SOD SUCCINATE 100 MG VIAL IV SCH ×2 (12:02→16:46)
[2020-10-07] MEDS: ACETAMINOPHEN 325 MG TAB PO PRN (12:15)
[2020-10-07] MEDS ORDERED: HYDROCORTISONE SOD SUCCINATE 100 MG VIAL IV NR (12:15)
[2020-10-07 15:04] LABS: EOSINOPHILS # (AUTO) 0.2 (0.0-0.4); EOSINOPHILS % 0.6 % (0.0-6.0); HEMATOCRIT 40.3 % (34.2-44.1); HEMOGLOBIN 12.6 g/dL (12.0-16.0); LYMPHOCYTES # (AUTO) 0.3 (1.0-3.2); MEAN CORPUSCULAR HEMOGLOBIN 29.6 pg (28-32); MEAN CORPUSCULAR HGB CONC 31.3 g/dL (31-35); MEAN CORPUSCULAR VOLUME 94.8 fL (81-99); MONOCYTES # (AUTO) 0.8 (0.2-0.8); MONOCYTES % 2.4 % (4.4-11.3); NEUTROPHILS # (AUTO) 29.8 (2.1-6.9); NEUTROPHILS % 91.9 % (38.7-80.0); RED BLOOD COUNT 4.25 x10e6/uL (3.6-5.1); RED CELL DISTRIBUTION WIDTH 14.5 % (11.7-14.4)
[2020-10-07 15:09] LABS: PLATELET COUNT 172 x10e3/uL (140-360)
[2020-10-07 15:16] LABS: ANION GAP 25.5 mmol/L (8-16); CALCIUM 7.1 mg/dL (8.4-10.2); CREATININE, SERUM 5.55 mg/dL (0.57-1.11); POTASSIUM 4.5 mmol/L (3.5-5.1)
[2020-10-07 16:51] LABS: ABG HCO3 20 mmol/L (22-26); ABG PCO2 38 mmHg (35-45); ABG PH 7.32 (7.35-7.45); ABG PO2 82 mmHg (80-105); ABG TCO2 21
[2020-10-07 21:59] LABS: CLARITY,URINE SL CLOUDY (CLEAR); COLOR,URINE YELLOW (YELLOW); LEUKOCYTE ESTERASE ,URINE TRACE (NEGATIVE); NITRITE,URINE NEGATIVE (NEGATIVE)
[2020-10-07 22:00] LABS: BILIRUBIN,URINE SMALL (NEGATIVE); KETONES,URINE 1+ (NEGATIVE); PROTEIN,URINE DIPSTICK >=300 (NEGATIVE); URINE UROBILINOGEN 0.2 mg/dL (0.2 - 1)
[2020-10-07 22:14] LABS: RBC,URINE 21-50 /HPF (0-5)
[2020-10-07 22:16] LABS: BACTERIA,URINE RARE /HPF; EPITHELIAL CELLS,URINE FEW /LPF
[2020-10-07 22:26] LABS: CREATININE,URINE RANDOM 118.94 mg/dL (47-110); SODIUM,URINE 37 mmol/L
[2020-10-07] MEDS: ATORVASTATIN 20 MG TAB PO SCH (22:30)
[2020-10-08] VITALS (40 sets, daily range): BP systolic 87–135; BP diastolic 41–88
[2020-10-08] MEDS: HYDROCORTISONE SOD SUCCINATE 100 MG VIAL IV SCH ×5 (00:42→22:09)
[2020-10-08] MEDS: SODIUM BICARBONATE 8.4% 150 ML in DEXTROSE 5% 1,000 ML IV SCH ×3 (02:56→22:09)
[2020-10-08 05:51] LABS: BASOPHILS # (AUTO) 0.1 (0.0-0.1); BASOPHILS % 0.4 % (0.0-1.0); EOSINOPHILS # (AUTO) 0.3 (0.0-0.4); EOSINOPHILS % 1.4 % (0.0-6.0); HEMATOCRIT 34.9 % (34.2-44.1); HEMOGLOBIN 11.4 g/dL (12.0-16.0); LYMPHOCYTES # (AUTO) 0.4 (1.0-3.2); LYMPHOCYTES % 1.5 % (18.0-39.1); MEAN CORPUSCULAR HEMOGLOBIN 29.7 pg (28-32); MEAN CORPUSCULAR HGB CONC 32.7 g/dL (31-35); MEAN CORPUSCULAR VOLUME 90.9 fL (81-99); MONOCYTES # (AUTO) 0.3 (0.2-0.8); MONOCYTES % 1.4 % (4.4-11.3); NEUTROPHILS # (AUTO) 21.5 (2.1-6.9); NEUTROPHILS % 89.9 % (38.7-80.0); PLATELET COUNT 137 x10e3/uL (140-360); RED BLOOD COUNT 3.84 x10e6/uL (3.6-5.1); RED CELL DISTRIBUTION WIDTH 14.5 % (11.7-14.4)
[2020-10-08] MEDS: NOREPINEPHRINE 8 MG/D5W 250 ML 250 ML IV PRN (06:04)
[2020-10-08 06:15] LABS: ALBUMIN 2.1 g/dL (3.5-5.0); ALBUMIN/GLOBULIN RATIO 0.7 (0.8-2.0); CREATININE, SERUM 6.28 mg/dL (0.57-1.11)
[2020-10-08 06:24] LABS: CALCIUM 6.9 mg/dL (8.4-10.2)
[2020-10-08] MEDS: INSULIN LISPRO 100 UNIT/1 ML 3ML VIAL SQ SCH ×4 (07:30→22:10)
[2020-10-08] MEDS ORDERED: LIDOCAINE HCL 2% LOCAL 20 ML VIAL ONE (08:39)
[2020-10-08] MEDS ORDERED: METHYLPREDNISOLONE SOD SUCC 40 MG/ML VIAL 1ML IV SCH (09:00)
[2020-10-08] MEDS: CLOPIDOGREL BISULFATE 75 MG TAB PO SCH (09:00)
[2020-10-08] MEDS: METOPROLOL TARTRATE 50 MG TAB PO SCH (09:00)
[2020-10-08] MEDS ORDERED: FUROSEMIDE INJ 10 MG/ML 4 ML VIAL ONE (09:22)
[2020-10-08] MEDS: ZINC SULFATE 220 MG CAP PO SCH ×2 (09:25→16:33)
[2020-10-08] MEDS: ASCORBIC ACID 500 MG TAB PO SCH ×2 (09:25→16:33)
[2020-10-08] MEDS: PANTOPRAZOLE 40 MG 10ML VIAL IV SCH (09:26)
[2020-10-08] MEDS: ASPIRIN 81 MG CHEW TAB PO SCH (09:26)
[2020-10-08] MEDS: MIDODRINE 2.5 MG TAB PO SCH ×3 (09:27→16:32)
[2020-10-08] MEDS ORDERED: AMIODARONE HCL 200 MG TAB PO SCH (09:30)
[2020-10-08] MEDS ORDERED: FUROSEMIDE INJ 10 MG/ML 4 ML VIAL IV NR (09:30)
[2020-10-08] MEDS ORDERED: SODIUM CHLORIDE 0.9% 1000ML 2,000 ML ONE (14:06)
[2020-10-08] MEDS ORDERED: MANNITOL 25% 12.5GM/50ML 100 ML ONE (14:27)
[2020-10-08] MEDS ORDERED: MANNITOL 25% 12.5GM/50 ML VIAL IV PRN (15:45)
[2020-10-08] MEDS ORDERED: HEPARIN SOD (PORCINE) 1000 UNIT/ML SDV IV PRN (15:45)
[2020-10-08] MEDS ORDERED: SODIUM CHLORIDE 0.9% 1000ML 2,000 ML IV PRN (15:45)
[2020-10-08] MEDS: AMIODARONE HCL 200 MG TAB PO SCH (17:00)
[2020-10-08] MEDS: DIPHENHYDRAMINE HCL 25 MG CAP PO PRN (17:34)
[2020-10-08] MEDS: SODIUM CHLORIDE 0.9% 100 ML 100 ML IV SCH (17:43)
[2020-10-08] MEDS: ATORVASTATIN 20 MG TAB PO SCH (22:09)
[2020-10-09] VITALS (26 sets, daily range): BP systolic 101–149; BP diastolic 44–102
[2020-10-09 05:47] LABS: BASOPHILS # (AUTO) 0.1 (0.0-0.1); BASOPHILS % 0.5 % (0.0-1.0); EOSINOPHILS # (AUTO) 0.2 (0.0-0.4); EOSINOPHILS % 1.1 % (0.0-6.0); HEMATOCRIT 32.7 % (34.2-44.1); HEMOGLOBIN 10.6 g/dL (12.0-16.0); LYMPHOCYTES # (AUTO) 1.1 (1.0-3.2); LYMPHOCYTES % 5.4 % (18.0-39.1); MEAN CORPUSCULAR HEMOGLOBIN 29.3 pg (28-32); MEAN CORPUSCULAR HGB CONC 32.4 g/dL (31-35); MEAN CORPUSCULAR VOLUME 90.3 fL (81-99); MONOCYTES # (AUTO) 0.3 (0.2-0.8); MONOCYTES % 1.7 % (4.4-11.3); NEUTROPHILS # (AUTO) 17.5 (2.1-6.9); NEUTROPHILS % 90.5 % (38.7-80.0); PLATELET COUNT 103 x10e3/uL (140-360); RED BLOOD COUNT 3.62 x10e6/uL (3.6-5.1); RED CELL DISTRIBUTION WIDTH 14.2 % (11.7-14.4)
[2020-10-09 06:04] LABS: ALBUMIN/GLOBULIN RATIO 0.6 (0.8-2.0); ANION GAP 18.1 mmol/L (8-16); CALCIUM 7.1 mg/dL (8.4-10.2); CREATININE, SERUM 4.1 mg/dL (0.57-1.11); POTASSIUM 4.1 mmol/L (3.5-5.1)
[2020-10-09 06:15] LABS: MAGNESIUM 1.8 MG/DL (1.3-2.1); PHOSPHORUS 4.4 MG/DL (2.3-4.7)
[2020-10-09] MEDS: HYDROCORTISONE SOD SUCCINATE 100 MG VIAL IV SCH ×3 (06:47→22:45)
[2020-10-09] MEDS: PANTOPRAZOLE 40 MG 10ML VIAL IV SCH (08:27)
[2020-10-09] MEDS: AMIODARONE HCL 200 MG TAB PO SCH ×2 (08:27→16:41)
[2020-10-09] MEDS: ASCORBIC ACID 500 MG TAB PO SCH ×2 (08:27→16:41)
[2020-10-09] MEDS: CLOPIDOGREL BISULFATE 75 MG TAB PO SCH (08:27)
[2020-10-09] MEDS: ZINC SULFATE 220 MG CAP PO SCH ×2 (08:27→16:41)
[2020-10-09] MEDS: METOPROLOL TARTRATE 50 MG TAB PO SCH (08:27)
[2020-10-09] MEDS: MIDODRINE 2.5 MG TAB PO SCH (08:27)
[2020-10-09] MEDS: ASPIRIN 81 MG CHEW TAB PO SCH (08:27)
[2020-10-09] MEDS: INSULIN LISPRO 100 UNIT/1 ML 3ML VIAL SQ SCH ×4 (08:28→21:00)
[2020-10-09] MEDS: NOREPINEPHRINE 8 MG/D5W 250 ML 250 ML IV PRN (09:00)
[2020-10-09] MEDS ORDERED: SODIUM CHLORIDE 0.9% 1000ML 2,000 ML IV PRN (09:30)
[2020-10-09] MEDS ORDERED: SODIUM CHLORIDE 0.9% 250ML 500 ML IV PRN (09:30)
[2020-10-09] MEDS ORDERED: HEPARIN SOD (PORCINE) 1000 UNIT/ML SDV IV PRN (09:30)
[2020-10-09] MEDS ORDERED: ALBUMIN 25% 12.5GM 0.25 GM/ML BTL IV PRN (09:30)
[2020-10-09] MEDS ORDERED: MANNITOL 25% 12.5GM/50 ML VIAL IV PRN (09:30)
[2020-10-09] MEDS: MIDODRINE HCL 5 MG TABLET PO SCH ×2 (11:47→16:41)
[2020-10-09] MEDS ORDERED: MIDODRINE HCL 5 MG TABLET PO SCH (12:00)
[2020-10-09] MEDS: DIPHENHYDRAMINE HCL 25 MG CAP PO PRN (14:04)
[2020-10-09] MEDS: SODIUM CHLORIDE 0.9% 100 ML 100 ML IV SCH (15:20)
[2020-10-09] MEDS: ATORVASTATIN 20 MG TAB PO SCH (21:30)
[2020-10-09] MEDS: MELATONIN 5 MG TABLET PO PRN (22:45)
[2020-10-10] VITALS (27 sets, daily range): BP systolic 84–153; BP diastolic 40–90
[2020-10-10] MEDS ORDERED: QUETIAPINE FUMARATE 25 MG TAB PO PRN (03:45)
[2020-10-10] MEDS: HYDROCORTISONE SOD SUCCINATE 100 MG VIAL IV SCH ×3 (05:14→21:00)
[2020-10-10] MEDS ORDERED: LORAZEPAM INJ 2 MG/ML VIAL IV ONE (05:15)
[2020-10-10 06:08] LABS: ALBUMIN 2.6 g/dL (3.5-5.0); ALBUMIN/GLOBULIN RATIO 0.9 (0.8-2.0); CALCIUM 7.7 mg/dL (8.4-10.2); CREATININE, SERUM 3.67 mg/dL (0.57-1.11)
[2020-10-10 06:23] LABS: BASOPHILS # (AUTO) 0.1 (0.0-0.1); BASOPHILS % 0.4 % (0.0-1.0); EOSINOPHILS # (AUTO) 0.4 (0.0-0.4); EOSINOPHILS % 2.3 % (0.0-6.0); HEMATOCRIT 30.7 % (34.2-44.1); HEMOGLOBIN 9.6 g/dL (12.0-16.0); LYMPHOCYTES # (AUTO) 2.6 (1.0-3.2); LYMPHOCYTES % 15.8 % (18.0-39.1); MEAN CORPUSCULAR HEMOGLOBIN 28.7 pg (28-32); MEAN CORPUSCULAR HGB CONC 31.3 g/dL (31-35); MEAN CORPUSCULAR VOLUME 91.9 fL (81-99); MONOCYTES # (AUTO) 0.7 (0.2-0.8); MONOCYTES % 4.1 % (4.4-11.3); NEUTROPHILS # (AUTO) 12.6 (2.1-6.9); NEUTROPHILS % 76.6 % (38.7-80.0); RED BLOOD COUNT 3.34 x10e6/uL (3.6-5.1); RED CELL DISTRIBUTION WIDTH 14.3 % (11.7-14.4)
[2020-10-10 06:26] LABS: PLATELET COUNT 82 x10e3/uL (140-360)
[2020-10-10] MEDS: INSULIN LISPRO 100 UNIT/1 ML 3ML VIAL SQ SCH ×4 (07:30→23:50)
[2020-10-10] MEDS ORDERED: HYDROCORTISONE SOD SUCCINATE 100 MG VIAL IV SCH (07:45)
[2020-10-10] MEDS ORDERED: ZIPRASIDONE 20 MG VIAL IM NR (08:45)
[2020-10-10] MEDS: PANTOPRAZOLE 40 MG 10ML VIAL IV SCH (09:13)
[2020-10-10 09:46] LABS: EOSINOPHILS % (MANUAL) 1 % (0-7); LYMPHOCYTES % (MANUAL) 11 % (19-48); MONOCYTES % (MANUAL) 3 % (3.4-9.0); NEUTROPHILS % (MANUAL) 82 % (40-74); PLATELET ESTIMATE SLIGHTLY DECREASED; RBC MORPHOLOGY COMMENT NORMAL
[2020-10-10 09:47] LABS: PLATELET MORPHOLOGY COMMENT RARE EDTA CLUMPING
[2020-10-10] MEDS: ASPIRIN 81 MG CHEW TAB PO SCH (11:50)
[2020-10-10] MEDS: CLOPIDOGREL BISULFATE 75 MG TAB PO SCH (11:50)
[2020-10-10] MEDS: MIDODRINE HCL 5 MG TABLET PO SCH ×2 (11:50→18:00)
[2020-10-10] MEDS: ASCORBIC ACID 500 MG TAB PO SCH ×2 (11:50→18:00)
[2020-10-10] MEDS: ZINC SULFATE 220 MG CAP PO SCH ×2 (11:50→18:00)
[2020-10-10] MEDS: AMIODARONE HCL 200 MG TAB PO SCH (11:50)
[2020-10-10] MEDS ORDERED: ZINC OXIDE/ MENTHOL 113 GM TUBE TOP SCH (15:00)
[2020-10-10] MEDS: DIPHENHYDRAMINE HCL INJ 50 MG/ML VIAL IV PRN ×2 (17:34→18:00)
[2020-10-10] MEDS: SODIUM CHLORIDE 0.9% 100 ML 100 ML IV SCH (18:00)
[2020-10-10] MEDS ORDERED: ZIPRASIDONE 20 MG VIAL IM ONE (21:00)
[2020-10-10] MEDS: MELATONIN 5 MG TABLET PO PRN (21:00)
[2020-10-10] MEDS: ATORVASTATIN 20 MG TAB PO SCH (21:00)
[2020-10-11] VITALS (26 sets, daily range): BP systolic 84–162; BP diastolic 53–86
[2020-10-11 05:53] LABS: BASOPHILS # (AUTO) 0.1 (0.0-0.1); BASOPHILS % 0.5 % (0.0-1.0); EOSINOPHILS # (AUTO) 0.3 (0.0-0.4); EOSINOPHILS % 1.8 % (0.0-6.0); HEMOGLOBIN 10.3 g/dL (12.0-16.0); LYMPHOCYTES # (AUTO) 3.6 (1.0-3.2); LYMPHOCYTES % 23.1 % (18.0-39.1); MEAN CORPUSCULAR HGB CONC 32.2 g/dL (31-35); MEAN CORPUSCULAR VOLUME 90.1 fL (81-99); MONOCYTES # (AUTO) 1.7 (0.2-0.8); MONOCYTES % 11.2 % (4.4-11.3); NEUTROPHILS # (AUTO) 9.6 (2.1-6.9); NEUTROPHILS % 62.4 % (38.7-80.0); PLATELET COUNT 78 x10e3/uL (140-360); RED BLOOD COUNT 3.55 x10e6/uL (3.6-5.1); RED CELL DISTRIBUTION WIDTH 14.2 % (11.7-14.4)
[2020-10-11 06:13] LABS: ALBUMIN 3.1 g/dL (3.5-5.0); ALBUMIN/GLOBULIN RATIO 1.1 (0.8-2.0); ANION GAP 21.2 mmol/L (8-16); CALCIUM 8.2 mg/dL (8.4-10.2); CREATININE, SERUM 4.86 mg/dL (0.57-1.11); POTASSIUM 4.2 mmol/L (3.5-5.1)
[2020-10-11] MEDS: INSULIN LISPRO 100 UNIT/1 ML 3ML VIAL SQ SCH ×4 (06:45→17:31)
[2020-10-11] MEDS: HYDROCORTISONE SOD SUCCINATE 100 MG VIAL IV SCH (08:00)
[2020-10-11] MEDS: CLOPIDOGREL BISULFATE 75 MG TAB PO SCH (08:14)
[2020-10-11] MEDS: ASCORBIC ACID 500 MG TAB PO SCH ×2 (08:14→16:59)
[2020-10-11] MEDS: AMIODARONE HCL 200 MG TAB PO SCH (08:14)
[2020-10-11] MEDS: BALSAM PERU/CASTOR OIL 60 GM OINT...G. TP SCH (08:14)
[2020-10-11] MEDS: ZINC SULFATE 220 MG CAP PO SCH ×2 (08:14→16:59)
[2020-10-11] MEDS: PANTOPRAZOLE 40 MG 10ML VIAL IV SCH (08:14)
[2020-10-11] MEDS: ASPIRIN 81 MG CHEW TAB PO SCH (08:14)
[2020-10-11] MEDS ORDERED: QUETIAPINE FUMARATE 25 MG TAB PO PRN (08:30)
[2020-10-11] MEDS ORDERED: LORAZEPAM 0.5 MG TAB PO PRN (08:30)
[2020-10-11 08:49] LABS: BAND NEUTROPHILS % (MANUAL) 1 %; EOSINOPHILS % (MANUAL) 2 % (0-7); LYMPHOCYTES % (MANUAL) 20 % (19-48); MONOCYTES % (MANUAL) 5 % (3.4-9.0); NEUTROPHILS % (MANUAL) 72 % (40-74)
[2020-10-11 08:50] LABS: RBC MORPHOLOGY COMMENT NORMAL
[2020-10-11 08:51] LABS: PLATELET MORPHOLOGY COMMENT NORMAL
[2020-10-11 08:52] LABS: PLATELET ESTIMATE MODERATELY DECREASED
[2020-10-11] MEDS: RISPERIDONE 0.5 MG TAB PO SCH ×2 (10:19→16:59)
[2020-10-11] MEDS ORDERED: THIAMINE HCL INJ 100 MG/ML 2ML VIAL IV ONE (11:15)
[2020-10-11] MEDS: MIDODRINE HCL 5 MG TABLET PO SCH ×3 (12:17→22:09)
[2020-10-11] MEDS ORDERED: MIDODRINE HCL 5 MG TABLET PO SCH (12:45)
[2020-10-11] MEDS: ZINC OXIDE / BALSAM PERU 30 GM TUBE TOP PRN (13:51)
[2020-10-11] MEDS: DIPHENHYDRAMINE HCL INJ 50 MG/ML VIAL IV PRN (14:15)
[2020-10-11] MEDS: ERTAPENEM IV SCH (14:17)
[2020-10-11] MEDS: SODIUM CHLORIDE 0.9% IV SCH (14:17)
[2020-10-11] MEDS ORDERED: MIDODRINE HCL 5 MG TABLET PO ONE (18:15)
[2020-10-12] VITALS (24 sets, daily range): BP systolic 74–155; BP diastolic 39–71
[2020-10-12 05:03] LABS: BASOPHILS % 0.3 % (0.0-1.0); EOSINOPHILS # (AUTO) 1.4 (0.0-0.4); EOSINOPHILS % 9.3 % (0.0-6.0); HEMATOCRIT 34.4 % (34.2-44.1); HEMOGLOBIN 11.1 g/dL (12.0-16.0); LYMPHOCYTES # (AUTO) 4.4 (1.0-3.2); MEAN CORPUSCULAR HEMOGLOBIN 29.1 pg (28-32); MEAN CORPUSCULAR HGB CONC 32.3 g/dL (31-35); MEAN CORPUSCULAR VOLUME 90.3 fL (81-99); MONOCYTES # (AUTO) 0.7 (0.2-0.8); MONOCYTES % 4.7 % (4.4-11.3); NEUTROPHILS # (AUTO) 8.1 (2.1-6.9); NEUTROPHILS % 54.4 % (38.7-80.0); PLATELET COUNT 80 x10e3/uL (140-360); RED BLOOD COUNT 3.81 x10e6/uL (3.6-5.1)
[2020-10-12 05:19] LABS: ANION GAP 17.4 mmol/L (8-16); CALCIUM 8.4 mg/dL (8.4-10.2); CREATININE, SERUM 2.95 mg/dL (0.57-1.11); POTASSIUM 3.4 mmol/L (3.5-5.1)
[2020-10-12] MEDS: MIDODRINE HCL 5 MG TABLET PO SCH ×3 (05:46→17:07)
[2020-10-12] MEDS: INSULIN LISPRO 100 UNIT/1 ML 3ML VIAL SQ SCH ×4 (06:00→17:08)
[2020-10-12 06:36] LABS: EOSINOPHILS % (MANUAL) 8 % (0-7); LYMPHOCYTES % (MANUAL) 22 % (19-48); MONOCYTES % (MANUAL) 3 % (3.4-9.0); NEUTROPHILS % (MANUAL) 65 % (40-74); PLATELET ESTIMATE SLIGHTLY DECREASED; PLATELET MORPHOLOGY COMMENT FEW LARGE; RBC MORPHOLOGY COMMENT NORMAL
[2020-10-12] MEDS: PANTOPRAZOLE 40 MG 10ML VIAL IV SCH (08:32)
[2020-10-12] MEDS: HYDROCORTISONE SOD SUCCINATE 100 MG VIAL IV SCH (08:32)
[2020-10-12] MEDS: ASPIRIN 81 MG CHEW TAB PO SCH (08:32)
[2020-10-12] MEDS: AMIODARONE HCL 200 MG TAB PO SCH (08:32)
[2020-10-12] MEDS: BALSAM PERU/CASTOR OIL 60 GM OINT...G. TP SCH (08:33)
[2020-10-12] MEDS: CLOPIDOGREL BISULFATE 75 MG TAB PO SCH (08:33)
[2020-10-12] MEDS: RISPERIDONE 0.5 MG TAB PO SCH ×2 (08:33→16:25)
[2020-10-12] MEDS: ZINC SULFATE 220 MG CAP PO SCH ×2 (08:33→16:25)
[2020-10-12] MEDS: ASCORBIC ACID 500 MG TAB PO SCH ×2 (08:33→16:25)
[2020-10-12] MEDS ORDERED: VALPROATE SOD INJ 500 MG in SODIUM CHLORIDE 0.9% 100 ML 100 ML IV SCH (10:15)
[2020-10-12] MEDS: VALPROATE SOD INJ 250 MG in SODIUM CHLORIDE 0.9% 100 ML 100 ML IV SCH ×2 (11:00→23:00)
[2020-10-12] MEDS: ERTAPENEM IV SCH (14:37)
[2020-10-12] MEDS: DIPHENHYDRAMINE HCL INJ 50 MG/ML VIAL IV PRN (14:37)
[2020-10-12] MEDS: SODIUM CHLORIDE 0.9% IV SCH (14:37)
[2020-10-12] MEDS ORDERED: MIDODRINE 2.5 MG TAB PO SCH (16:00)
[2020-10-13] VITALS (28 sets, daily range): BP systolic 80–126; BP diastolic 46–96
[2020-10-13] MEDS: MIDODRINE HCL 5 MG TABLET PO SCH ×5 (00:13→23:26)
[2020-10-13] MEDS: INSULIN LISPRO 100 UNIT/1 ML 3ML VIAL SQ SCH ×5 (00:14→23:26)
[2020-10-13 06:20] LABS: BASOPHILS % 0.2 % (0.0-1.0); EOSINOPHILS # (AUTO) 1.4 (0.0-0.4); EOSINOPHILS % 9.3 % (0.0-6.0); HEMOGLOBIN 10.8 g/dL (12.0-16.0); LYMPHOCYTES # (AUTO) 3.6 (1.0-3.2); LYMPHOCYTES % 24.7 % (18.0-39.1); MEAN CORPUSCULAR HEMOGLOBIN 28.9 pg (28-32); MEAN CORPUSCULAR HGB CONC 31.8 g/dL (31-35); MEAN CORPUSCULAR VOLUME 90.9 fL (81-99); MONOCYTES # (AUTO) 0.9 (0.2-0.8); MONOCYTES % 5.8 % (4.4-11.3); NEUTROPHILS # (AUTO) 8.4 (2.1-6.9); NEUTROPHILS % 57.9 % (38.7-80.0); PLATELET COUNT 99 x10e3/uL (140-360); RED BLOOD COUNT 3.74 x10e6/uL (3.6-5.1); RED CELL DISTRIBUTION WIDTH 14.4 % (11.7-14.4)
[2020-10-13 07:09] LABS: ALBUMIN 2.9 g/dL (3.5-5.0); ALBUMIN/GLOBULIN RATIO 1.1 (0.8-2.0); ANION GAP 17.5 mmol/L (8-16); CALCIUM 8.3 mg/dL (8.4-10.2); CREATININE, SERUM 4.49 mg/dL (0.57-1.11); POTASSIUM 3.5 mmol/L (3.5-5.1)
[2020-10-13] MEDS: ZINC OXIDE / BALSAM PERU 30 GM TUBE TOP PRN (07:30)
[2020-10-13] MEDS: BALSAM PERU/CASTOR OIL 60 GM OINT...G. TP SCH (08:37)
[2020-10-13] MEDS: ASCORBIC ACID 500 MG TAB PO SCH ×2 (09:16→17:10)
[2020-10-13] MEDS: HYDROCORTISONE SOD SUCCINATE 100 MG VIAL IV SCH (09:16)
[2020-10-13] MEDS: ZINC SULFATE 220 MG CAP PO SCH ×2 (09:16→17:10)
[2020-10-13] MEDS: PANTOPRAZOLE 40 MG 10ML VIAL IV SCH (09:16)
[2020-10-13] MEDS: RISPERIDONE 0.5 MG TAB PO SCH (09:16)
[2020-10-13] MEDS: CLOPIDOGREL BISULFATE 75 MG TAB PO SCH (09:16)
[2020-10-13] MEDS: ASPIRIN 81 MG CHEW TAB PO SCH (09:16)
[2020-10-13] MEDS: AMIODARONE HCL 200 MG TAB PO SCH (09:16)
[2020-10-13] MEDS: VALPROATE SOD INJ 250 MG in SODIUM CHLORIDE 0.9% 100 ML 100 ML IV SCH ×2 (10:18→23:26)
[2020-10-13] MEDS: SODIUM CHLORIDE 0.9% IV SCH (14:54)
[2020-10-13] MEDS: ERTAPENEM IV SCH (14:54)
[2020-10-13] MEDS: DIPHENHYDRAMINE HCL INJ 50 MG/ML VIAL IV PRN (14:54)
[2020-10-14] VITALS (17 sets, daily range): BP systolic 88–157; BP diastolic 20–99
[2020-10-14 05:58] LABS: BASOPHILS % 0.2 % (0.0-1.0); EOSINOPHILS # (AUTO) 1.2 (0.0-0.4); EOSINOPHILS % 7.6 % (0.0-6.0); HEMATOCRIT 33.6 % (34.2-44.1); HEMOGLOBIN 10.6 g/dL (12.0-16.0); LYMPHOCYTES # (AUTO) 3.4 (1.0-3.2); LYMPHOCYTES % 22.4 % (18.0-39.1); MEAN CORPUSCULAR HEMOGLOBIN 29.1 pg (28-32); MEAN CORPUSCULAR HGB CONC 31.5 g/dL (31-35); MEAN CORPUSCULAR VOLUME 92.3 fL (81-99); MONOCYTES # (AUTO) 0.8 (0.2-0.8); MONOCYTES % 5.4 % (4.4-11.3); NEUTROPHILS # (AUTO) 9.6 (2.1-6.9); NEUTROPHILS % 62.3 % (38.7-80.0); PLATELET COUNT 114 x10e3/uL (140-360); RED BLOOD COUNT 3.64 x10e6/uL (3.6-5.1); RED CELL DISTRIBUTION WIDTH 14.3 % (11.7-14.4)
[2020-10-14] MEDS: INSULIN LISPRO 100 UNIT/1 ML 3ML VIAL SQ SCH ×4 (06:00→23:48)
[2020-10-14 06:23] LABS: ANION GAP 15.6 mmol/L (8-16); CALCIUM 8.5 mg/dL (8.4-10.2); CREATININE, SERUM 2.85 mg/dL (0.57-1.11); POTASSIUM 3.6 mmol/L (3.5-5.1)
[2020-10-14] MEDS: MIDODRINE HCL 5 MG TABLET PO SCH ×4 (06:29→22:11)
[2020-10-14] MEDS: PANTOPRAZOLE 40 MG 10ML VIAL IV SCH (08:21)
[2020-10-14] MEDS: ASPIRIN 81 MG CHEW TAB PO SCH (08:21)
[2020-10-14] MEDS: ASCORBIC ACID 500 MG TAB PO SCH ×2 (08:21→16:21)
[2020-10-14] MEDS: AMIODARONE HCL 200 MG TAB PO SCH (08:21)
[2020-10-14] MEDS: ZINC SULFATE 220 MG CAP PO SCH ×2 (08:21→16:21)
[2020-10-14] MEDS: BALSAM PERU/CASTOR OIL 60 GM OINT...G. TP SCH (08:21)
[2020-10-14] MEDS: CLOPIDOGREL BISULFATE 75 MG TAB PO SCH (08:21)
[2020-10-14] MEDS ORDERED: HYDROCORTISONE SOD SUCCINATE 100 MG VIAL IV SCH (09:00)
[2020-10-14] MEDS: DIPHENHYDRAMINE HCL INJ 50 MG/ML VIAL IV PRN (14:08)
[2020-10-14] MEDS: ERTAPENEM IV SCH (15:00)
[2020-10-14] MEDS: SODIUM CHLORIDE 0.9% IV SCH (15:00)
[2020-10-14] MEDS: APIXAB 2.5 MG TABLET PO SCH (17:23)
[2020-10-15] VITALS (25 sets, daily range): BP systolic 97–143; BP diastolic 31–96
[2020-10-15 05:43] LABS: BASOPHILS % 0.3 % (0.0-1.0); EOSINOPHILS # (AUTO) 1.4 (0.0-0.4); EOSINOPHILS % 9.8 % (0.0-6.0); HEMATOCRIT 32.3 % (34.2-44.1); LYMPHOCYTES # (AUTO) 2.4 (1.0-3.2); LYMPHOCYTES % 17.2 % (18.0-39.1); MEAN CORPUSCULAR HEMOGLOBIN 28.3 pg (28-32); MEAN CORPUSCULAR VOLUME 91.5 fL (81-99); MONOCYTES # (AUTO) 0.9 (0.2-0.8); MONOCYTES % 6.3 % (4.4-11.3); NEUTROPHILS # (AUTO) 9.1 (2.1-6.9); PLATELET COUNT 153 x10e3/uL (140-360); RED BLOOD COUNT 3.53 x10e6/uL (3.6-5.1); RED CELL DISTRIBUTION WIDTH 14.6 % (11.7-14.4)
[2020-10-15] MEDS: INSULIN LISPRO 100 UNIT/1 ML 3ML VIAL SQ SCH ×3 (06:00→17:51)
[2020-10-15 06:01] LABS: ANION GAP 17.7 mmol/L (8-16); CALCIUM 8.4 mg/dL (8.4-10.2); CREATININE, SERUM 4.02 mg/dL (0.57-1.11); POTASSIUM 3.7 mmol/L (3.5-5.1)
[2020-10-15] MEDS: MIDODRINE HCL 5 MG TABLET PO SCH ×3 (06:02→17:26)
[2020-10-15] MEDS: AMIODARONE HCL 200 MG TAB PO SCH (08:35)
[2020-10-15] MEDS: ASCORBIC ACID 500 MG TAB PO SCH ×2 (08:35→17:26)
[2020-10-15] MEDS: APIXAB 2.5 MG TABLET PO SCH ×2 (08:35→17:26)
[2020-10-15] MEDS: PANTOPRAZOLE 40 MG 10ML VIAL IV SCH (08:35)
[2020-10-15] MEDS: ASPIRIN 81 MG CHEW TAB PO SCH (08:35)
[2020-10-15] MEDS: ZINC SULFATE 220 MG CAP PO SCH ×2 (08:35→17:26)
[2020-10-15] MEDS: BALSAM PERU/CASTOR OIL 60 GM OINT...G. TP SCH (08:35)
[2020-10-15] MEDS: ERTAPENEM IV SCH (15:16)
[2020-10-15] MEDS: DIPHENHYDRAMINE HCL INJ 50 MG/ML VIAL IV PRN (15:16)
[2020-10-15] MEDS: SODIUM CHLORIDE 0.9% IV SCH (15:16)
[2020-10-15] MEDS ORDERED: ACETAMINOPHEN 1000 MG/100 ML 100 ML IV ONE (20:58)
[2020-10-16] VITALS (26 sets, daily range): BP systolic 91–135; BP diastolic 39–102
[2020-10-16] MEDS: INSULIN LISPRO 100 UNIT/1 ML 3ML VIAL SQ SCH ×4 (01:32→17:32)
[2020-10-16 05:45] LABS: BASOPHILS % 0.2 % (0.0-1.0); EOSINOPHILS # (AUTO) 1.6 (0.0-0.4); EOSINOPHILS % 10.5 % (0.0-6.0); HEMATOCRIT 32.1 % (34.2-44.1); HEMOGLOBIN 10.3 g/dL (12.0-16.0); LYMPHOCYTES % 13.4 % (18.0-39.1); MEAN CORPUSCULAR HEMOGLOBIN 29.6 pg (28-32); MEAN CORPUSCULAR HGB CONC 32.1 g/dL (31-35); MEAN CORPUSCULAR VOLUME 92.2 fL (81-99); MONOCYTES # (AUTO) 0.9 (0.2-0.8); MONOCYTES % 6.1 % (4.4-11.3); NEUTROPHILS # (AUTO) 10.2 (2.1-6.9); PLATELET COUNT 197 x10e3/uL (140-360); RED BLOOD COUNT 3.48 x10e6/uL (3.6-5.1); RED CELL DISTRIBUTION WIDTH 14.7 % (11.7-14.4)
[2020-10-16 06:16] LABS: ALBUMIN 2.9 g/dL (3.5-5.0); CALCIUM 8.2 mg/dL (8.4-10.2); CREATININE, SERUM 4.56 mg/dL (0.57-1.11)
[2020-10-16 06:40] LABS: POTASSIUM 3.8 mmol/L (3.5-5.1)
[2020-10-16 06:54] LABS: ANION GAP 16.8 mmol/L (8-16)
[2020-10-16] MEDS: ASPIRIN 81 MG CHEW TAB PO SCH (08:40)
[2020-10-16] MEDS: MIDODRINE HCL 5 MG TABLET PO SCH (08:40)
[2020-10-16] MEDS: ZINC SULFATE 220 MG CAP PO SCH ×2 (08:40→17:32)
[2020-10-16] MEDS: PANTOPRAZOLE 40 MG 10ML VIAL IV SCH (08:40)
[2020-10-16] MEDS: BALSAM PERU/CASTOR OIL 60 GM OINT...G. TP SCH (08:40)
[2020-10-16] MEDS: ASCORBIC ACID 500 MG TAB PO SCH ×2 (08:40→17:32)
[2020-10-16] MEDS: AMIODARONE HCL 200 MG TAB PO SCH (08:40)
[2020-10-16] MEDS: APIXAB 2.5 MG TABLET PO SCH ×2 (08:40→17:31)
[2020-10-16] MEDS ORDERED: HEPARIN SOD (PORCINE) 1000 UNIT/ML SDV IV PRN (11:15)
[2020-10-16] MEDS ORDERED: ALBUMIN 25% 12.5GM 0.25 GM/ML BTL IV PRN (11:15)
[2020-10-16] MEDS ORDERED: SODIUM CHLORIDE 0.9% 1000ML 2,000 ML IV PRN (11:15)
[2020-10-16] MEDS ORDERED: SODIUM CHLORIDE 0.9% 250ML 500 ML IV PRN (11:15)
[2020-10-16] MEDS ORDERED: MANNITOL 25% 12.5GM/50 ML VIAL IV PRN (11:15)
[2020-10-16] MEDS: DIPHENHYDRAMINE HCL INJ 50 MG/ML VIAL IV PRN (15:01)
[2020-10-16] MEDS: SODIUM CHLORIDE 0.9% IV SCH (15:02)
[2020-10-16] MEDS: ERTAPENEM IV SCH (15:02)
[2020-10-16] MEDS: MIDODRINE 2.5 MG TAB PO SCH (17:32)
[2020-10-17] VITALS (23 sets, daily range): BP systolic 85–140; BP diastolic 21–86
[2020-10-17 05:03] LABS: BASOPHILS % 0.3 % (0.0-1.0); EOSINOPHILS # (AUTO) 1.6 (0.0-0.4); EOSINOPHILS % 10.3 % (0.0-6.0); HEMATOCRIT 31.3 % (34.2-44.1); HEMOGLOBIN 9.7 g/dL (12.0-16.0); LYMPHOCYTES # (AUTO) 2.5 (1.0-3.2); LYMPHOCYTES % 16.5 % (18.0-39.1); MEAN CORPUSCULAR HEMOGLOBIN 28.6 pg (28-32); MEAN CORPUSCULAR VOLUME 92.3 fL (81-99); MONOCYTES # (AUTO) 1.1 (0.2-0.8); MONOCYTES % 7.5 % (4.4-11.3); NEUTROPHILS # (AUTO) 9.8 (2.1-6.9); NEUTROPHILS % 64.9 % (38.7-80.0); PLATELET COUNT 174 x10e3/uL (140-360); RED BLOOD COUNT 3.39 x10e6/uL (3.6-5.1); RED CELL DISTRIBUTION WIDTH 14.8 % (11.7-14.4)
[2020-10-17 05:19] LABS: CALCIUM 8.1 mg/dL (8.4-10.2); CREATININE, SERUM 2.92 mg/dL (0.57-1.11)
[2020-10-17] MEDS: INSULIN LISPRO 100 UNIT/1 ML 3ML VIAL SQ SCH ×5 (05:44→23:20)
[2020-10-17] MEDS: RIVASTIGMINE TARTRATE 1.5 MG CAP PO SCH ×2 (08:36→16:16)
[2020-10-17] MEDS: ASCORBIC ACID 500 MG TAB PO SCH ×2 (08:37→16:16)
[2020-10-17] MEDS: MIDODRINE 2.5 MG TAB PO SCH ×2 (08:39→16:16)
[2020-10-17] MEDS: ASPIRIN 81 MG CHEW TAB PO SCH (08:39)
[2020-10-17] MEDS: AMIODARONE HCL 200 MG TAB PO SCH (08:39)
[2020-10-17] MEDS: APIXAB 2.5 MG TABLET PO SCH ×2 (08:39→16:16)
[2020-10-17] MEDS: PANTOPRAZOLE 40 MG 10ML VIAL IV SCH (08:40)
[2020-10-17] MEDS: ZINC SULFATE 220 MG CAP PO SCH ×2 (08:41→16:16)
[2020-10-17] MEDS: BALSAM PERU/CASTOR OIL 60 GM OINT...G. TP SCH (08:41)
[2020-10-17] MEDS: SODIUM CHLORIDE 0.9% IV SCH (14:41)
[2020-10-17] MEDS: DIPHENHYDRAMINE HCL INJ 50 MG/ML VIAL IV PRN (14:41)
[2020-10-17] MEDS: ERTAPENEM IV SCH (14:41)
[2020-10-18] VITALS (11 sets, daily range): BP systolic 97–139; BP diastolic 34–55
[2020-10-18] MEDS: INSULIN LISPRO 100 UNIT/1 ML 3ML VIAL SQ SCH ×3 (06:00→18:00)
[2020-10-18 06:28] LABS: ANION GAP 13.8 mmol/L (8-16); CALCIUM 8.5 mg/dL (8.4-10.2); CREATININE, SERUM 3.73 mg/dL (0.57-1.11); PHOSPHORUS 5.3 MG/DL (2.3-4.7); POTASSIUM 3.8 mmol/L (3.5-5.1)
[2020-10-18 06:43] LABS: BASOPHILS # (AUTO) 0.1 (0.0-0.1); BASOPHILS % 0.4 % (0.0-1.0); EOSINOPHILS # (AUTO) 1.6 (0.0-0.4); EOSINOPHILS % 10.1 % (0.0-6.0); HEMATOCRIT 31.6 % (34.2-44.1); HEMOGLOBIN 9.9 g/dL (12.0-16.0); LYMPHOCYTES # (AUTO) 2.3 (1.0-3.2); LYMPHOCYTES % 14.4 % (18.0-39.1); MEAN CORPUSCULAR HEMOGLOBIN 29.2 pg (28-32); MEAN CORPUSCULAR HGB CONC 31.3 g/dL (31-35); MEAN CORPUSCULAR VOLUME 93.2 fL (81-99); MONOCYTES # (AUTO) 1.2 (0.2-0.8); MONOCYTES % 7.4 % (4.4-11.3); NEUTROPHILS # (AUTO) 10.8 (2.1-6.9); NEUTROPHILS % 67.3 % (38.7-80.0); PLATELET COUNT 184 x10e3/uL (140-360); RED BLOOD COUNT 3.39 x10e6/uL (3.6-5.1); RED CELL DISTRIBUTION WIDTH 14.8 % (11.7-14.4)
[2020-10-18] MEDS: PANTOPRAZOLE 40 MG 10ML VIAL IV SCH (08:42)
[2020-10-18] MEDS: AMIODARONE HCL 200 MG TAB PO SCH (08:42)
[2020-10-18] MEDS: RIVASTIGMINE TARTRATE 1.5 MG CAP PO SCH ×2 (08:42→16:10)
[2020-10-18] MEDS: APIXAB 2.5 MG TABLET PO SCH ×2 (08:42→16:10)
[2020-10-18] MEDS: ASPIRIN 81 MG CHEW TAB PO SCH (08:42)
[2020-10-18] MEDS: BALSAM PERU/CASTOR OIL 60 GM OINT...G. TP SCH (08:43)
[2020-10-18] MEDS: MIDODRINE 2.5 MG TAB PO SCH (08:43)
[2020-10-18] MEDS: ASCORBIC ACID 500 MG TAB PO SCH ×2 (08:43→16:10)
[2020-10-18] MEDS: ZINC SULFATE 220 MG CAP PO SCH ×2 (08:43→16:10)
[2020-10-18] MEDS: NYSTATIN 15 GM POWDER UD BTL TOP SCH ×2 (10:01→16:10)
[2020-10-18] MEDS: MODAFINIL 100 MG TAB PO SCH (10:14)
[2020-10-18] MEDS: DIPHENHYDRAMINE HCL INJ 50 MG/ML VIAL IV PRN (14:52)
[2020-10-18] MEDS: ERTAPENEM IV SCH (14:53)
[2020-10-18] MEDS: SODIUM CHLORIDE 0.9% IV SCH (14:53)
[2020-10-19] VITALS (8 sets, daily range): BP systolic 97–143; BP diastolic 50–86
[2020-10-19 04:58] LABS: BASOPHILS # (AUTO) 0.1 (0.0-0.1); BASOPHILS % 0.6 % (0.0-1.0); EOSINOPHILS # (AUTO) 1.7 (0.0-0.4); EOSINOPHILS % 11.9 % (0.0-6.0); HEMATOCRIT 33.8 % (34.2-44.1); HEMOGLOBIN 10.3 g/dL (12.0-16.0); LYMPHOCYTES # (AUTO) 2.2 (1.0-3.2); LYMPHOCYTES % 15.5 % (18.0-39.1); MEAN CORPUSCULAR HEMOGLOBIN 28.7 pg (28-32); MEAN CORPUSCULAR HGB CONC 30.5 g/dL (31-35); MEAN CORPUSCULAR VOLUME 94.2 fL (81-99); MONOCYTES % 6.8 % (4.4-11.3); NEUTROPHILS # (AUTO) 9.2 (2.1-6.9); NEUTROPHILS % 64.8 % (38.7-80.0); PLATELET COUNT 203 x10e3/uL (140-360); RED BLOOD COUNT 3.59 x10e6/uL (3.6-5.1); RED CELL DISTRIBUTION WIDTH 14.8 % (11.7-14.4)
[2020-10-19 05:15] LABS: CALCIUM 8.5 mg/dL (8.4-10.2); CREATININE, SERUM 3.8 mg/dL (0.57-1.11)
[2020-10-19] MEDS: INSULIN LISPRO 100 UNIT/1 ML 3ML VIAL SQ SCH ×4 (05:45→17:18)
[2020-10-19] MEDS: NYSTATIN 15 GM POWDER UD BTL TOP SCH ×2 (08:13→17:18)
[2020-10-19] MEDS: ASPIRIN 81 MG CHEW TAB PO SCH (08:13)
[2020-10-19] MEDS: ASCORBIC ACID 500 MG TAB PO SCH ×2 (08:13→17:18)
[2020-10-19] MEDS: RIVASTIGMINE TARTRATE 1.5 MG CAP PO SCH ×2 (08:13→17:17)
[2020-10-19] MEDS: ZINC SULFATE 220 MG CAP PO SCH ×2 (08:13→17:18)
[2020-10-19] MEDS: PANTOPRAZOLE 40 MG 10ML VIAL IV SCH (08:13)
[2020-10-19] MEDS: BALSAM PERU/CASTOR OIL 60 GM OINT...G. TP SCH (08:13)
[2020-10-19] MEDS: MIDODRINE 2.5 MG TAB PO SCH (08:13)
[2020-10-19] MEDS: MODAFINIL 100 MG TAB PO SCH (08:13)
[2020-10-19] MEDS: AMIODARONE HCL 200 MG TAB PO SCH (08:13)
[2020-10-19] MEDS: APIXAB 2.5 MG TABLET PO SCH ×2 (08:13→17:17)
[2020-10-19] MEDS ORDERED: FLUCONAZOLE 100 MG TAB PO ONE (12:45)
[2020-10-19] MEDS: DEXTROSE 5% 1,000 ML IV SCH (16:30)
[2020-10-20] VITALS (26 sets, daily range): BP systolic 90–142; BP diastolic 36–97
[2020-10-20] MEDS: DEXTROSE 5% 1,000 ML IV SCH ×3 (03:20→22:27)
[2020-10-20 05:03] LABS: BASOPHILS # (AUTO) 0.1 (0.0-0.1); BASOPHILS % 0.4 % (0.0-1.0); EOSINOPHILS # (AUTO) 1.8 (0.0-0.4); HEMATOCRIT 30.2 % (34.2-44.1); HEMOGLOBIN 9.3 g/dL (12.0-16.0); LYMPHOCYTES # (AUTO) 2.2 (1.0-3.2); LYMPHOCYTES % 15.8 % (18.0-39.1); MEAN CORPUSCULAR HEMOGLOBIN 29.4 pg (28-32); MEAN CORPUSCULAR HGB CONC 30.8 g/dL (31-35); MEAN CORPUSCULAR VOLUME 95.6 fL (81-99); MONOCYTES % 7.2 % (4.4-11.3); NEUTROPHILS # (AUTO) 8.6 (2.1-6.9); NEUTROPHILS % 63.2 % (38.7-80.0); PLATELET COUNT 210 x10e3/uL (140-360); RED BLOOD COUNT 3.16 x10e6/uL (3.6-5.1); RED CELL DISTRIBUTION WIDTH 14.8 % (11.7-14.4)
[2020-10-20 05:23] LABS: ANION GAP 15.7 mmol/L (8-16); CREATININE, SERUM 3.89 mg/dL (0.57-1.11); POTASSIUM 3.7 mmol/L (3.5-5.1)
[2020-10-20 05:24] LABS: ALBUMIN 2.7 g/dL (3.5-5.0); ALBUMIN/GLOBULIN RATIO 0.8 (0.8-2.0); CALCIUM 7.7 mg/dL (8.4-10.2)
[2020-10-20] MEDS: INSULIN LISPRO 100 UNIT/1 ML 3ML VIAL SQ SCH ×4 (06:00→16:22)
[2020-10-20] MEDS: ASPIRIN 81 MG CHEW TAB PO SCH (09:09)
[2020-10-20] MEDS: RIVASTIGMINE TARTRATE 1.5 MG CAP PO SCH ×2 (09:09→16:53)
[2020-10-20] MEDS: AMIODARONE HCL 200 MG TAB PO SCH (09:09)
[2020-10-20] MEDS: PANTOPRAZOLE 40 MG 10ML VIAL IV SCH (09:09)
[2020-10-20] MEDS: MIDODRINE 2.5 MG TAB PO SCH (09:10)
[2020-10-20] MEDS: ZINC SULFATE 220 MG CAP PO SCH ×2 (09:10→16:53)
[2020-10-20] MEDS: BALSAM PERU/CASTOR OIL 60 GM OINT...G. TP SCH (09:10)
[2020-10-20] MEDS: NYSTATIN 15 GM POWDER UD BTL TOP SCH ×2 (09:10→16:22)
[2020-10-20] MEDS: ASCORBIC ACID 500 MG TAB PO SCH ×2 (09:10→16:53)
[2020-10-20] MEDS: MODAFINIL 100 MG TAB PO SCH (09:10)
[2020-10-20] MEDS: APIXAB 2.5 MG TABLET PO SCH ×2 (09:10→16:53)
[2020-10-20] MEDS ORDERED: RISPERIDONE 0.5 MG TAB PO PRN (13:45)
[2020-10-21] VITALS (17 sets, daily range): BP systolic 82–145; BP diastolic 41–85
[2020-10-21 05:11] LABS: BASOPHILS # (AUTO) 0.1 (0.0-0.1); BASOPHILS % 0.5 % (0.0-1.0); EOSINOPHILS # (AUTO) 1.8 (0.0-0.4); EOSINOPHILS % 16.1 % (0.0-6.0); HEMATOCRIT 27.5 % (34.2-44.1); HEMOGLOBIN 8.5 g/dL (12.0-16.0); LYMPHOCYTES # (AUTO) 2.7 (1.0-3.2); LYMPHOCYTES % 24.2 % (18.0-39.1); MEAN CORPUSCULAR HEMOGLOBIN 29.3 pg (28-32); MEAN CORPUSCULAR HGB CONC 30.9 g/dL (31-35); MEAN CORPUSCULAR VOLUME 94.8 fL (81-99); MONOCYTES # (AUTO) 0.9 (0.2-0.8); MONOCYTES % 7.6 % (4.4-11.3); NEUTROPHILS # (AUTO) 5.7 (2.1-6.9); NEUTROPHILS % 51.3 % (38.7-80.0); PLATELET COUNT 195 x10e3/uL (140-360); RED CELL DISTRIBUTION WIDTH 14.6 % (11.7-14.4)
[2020-10-21 05:39] LABS: ALBUMIN 2.6 g/dL (3.5-5.0); ALBUMIN/GLOBULIN RATIO 0.8 (0.8-2.0); ANION GAP 13.8 mmol/L (8-16); CALCIUM 7.4 mg/dL (8.4-10.2); CREATININE, SERUM 3.44 mg/dL (0.57-1.11); MAGNESIUM 2.1 MG/DL (1.3-2.1); PHOSPHORUS 4.9 MG/DL (2.3-4.7); POTASSIUM 3.8 mmol/L (3.5-5.1)
[2020-10-21] MEDS: INSULIN LISPRO 100 UNIT/1 ML 3ML VIAL SQ SCH ×4 (06:00→15:45)
[2020-10-21] MEDS: RIVASTIGMINE TARTRATE 1.5 MG CAP PO SCH ×2 (09:13→17:43)
[2020-10-21] MEDS: AMIODARONE HCL 200 MG TAB PO SCH (09:13)
[2020-10-21] MEDS: MODAFINIL 100 MG TAB PO SCH (09:13)
[2020-10-21] MEDS: ASCORBIC ACID 500 MG TAB PO SCH ×2 (09:13→17:43)
[2020-10-21] MEDS: PANTOPRAZOLE 40 MG 10ML VIAL IV SCH (09:13)
[2020-10-21] MEDS: ZINC SULFATE 220 MG CAP PO SCH ×2 (09:13→17:43)
[2020-10-21] MEDS: ASPIRIN 81 MG CHEW TAB PO SCH (09:13)
[2020-10-21] MEDS: APIXAB 2.5 MG TABLET PO SCH (09:13)
[2020-10-21] MEDS: NYSTATIN 15 GM POWDER UD BTL TOP SCH ×2 (09:14→17:43)
[2020-10-21] MEDS: BALSAM PERU/CASTOR OIL 60 GM OINT...G. TP SCH (09:14)
[2020-10-21] MEDS: MIDODRINE 2.5 MG TAB PO SCH (11:05)
[2020-10-21] MEDS: DEXTROSE 5% 1,000 ML IV SCH ×3 (11:10→20:15)
[2020-10-21 21:23] LABS: CREATININE,URINE RANDOM 32.69 mg/dL (47-110)
[2020-10-22] VITALS: BP 129/61
[2020-10-22 04:00] VITALS: BP 102/64
[2020-10-22 04:55] LABS: ALBUMIN 2.5 g/dL (3.5-5.0); ALBUMIN/GLOBULIN RATIO 0.7 (0.8-2.0); ANION GAP 13.7 mmol/L (8-16); CALCIUM 7.5 mg/dL (8.4-10.2); CREATININE, SERUM 3.27 mg/dL (0.57-1.11); POTASSIUM 3.7 mmol/L (3.5-5.1)
[2020-10-22] MEDS: DEXTROSE 5% 1,000 ML IV SCH (05:33)
[2020-10-22] MEDS: INSULIN LISPRO 100 UNIT/1 ML 3ML VIAL SQ SCH ×4 (06:00→17:43)
[2020-10-22 08:00] VITALS: BP 102/68
[2020-10-22 08:04] LABS: BASOPHILS # (AUTO) 0.1 (0.0-0.1); BASOPHILS % 0.8 % (0.0-1.0); EOSINOPHILS # (AUTO) 1.5 (0.0-0.4); EOSINOPHILS % 14.5 % (0.0-6.0); HEMATOCRIT 29.3 % (34.2-44.1); HEMOGLOBIN 8.9 g/dL (12.0-16.0); LYMPHOCYTES # (AUTO) 2.8 (1.0-3.2); LYMPHOCYTES % 26.5 % (18.0-39.1); MEAN CORPUSCULAR HEMOGLOBIN 28.9 pg (28-32); MEAN CORPUSCULAR HGB CONC 30.4 g/dL (31-35); MEAN CORPUSCULAR VOLUME 95.1 fL (81-99); MONOCYTES # (AUTO) 0.9 (0.2-0.8); MONOCYTES % 8.5 % (4.4-11.3); NEUTROPHILS # (AUTO) 5.3 (2.1-6.9); NEUTROPHILS % 49.4 % (38.7-80.0); PLATELET COUNT 195 x10e3/uL (140-360); RED BLOOD COUNT 3.08 x10e6/uL (3.6-5.1); RED CELL DISTRIBUTION WIDTH 14.8 % (11.7-14.4)
[2020-10-22] MEDS: PANTOPRAZOLE 40 MG 10ML VIAL IV SCH (09:48)
[2020-10-22] MEDS: RIVASTIGMINE TARTRATE 1.5 MG CAP PO SCH ×2 (09:48→17:42)
[2020-10-22] MEDS: APIXAB 2.5 MG TABLET PO SCH ×2 (09:48→17:42)
[2020-10-22] MEDS: ASPIRIN 81 MG CHEW TAB PO SCH (09:48)
[2020-10-22] MEDS: AMIODARONE HCL 200 MG TAB PO SCH (09:48)
[2020-10-22] MEDS: ZINC SULFATE 220 MG CAP PO SCH ×2 (09:49→17:42)
[2020-10-22] MEDS: MODAFINIL 100 MG TAB PO SCH (09:49)
[2020-10-22] MEDS: ASCORBIC ACID 500 MG TAB PO SCH ×2 (09:49→17:42)
[2020-10-22 12:00] VITALS: BP 105/83
[2020-10-22] MEDS: NYSTATIN 15 GM POWDER UD BTL TOP SCH ×2 (12:15→17:42)
[2020-10-22] MEDS: BALSAM PERU/CASTOR OIL 60 GM OINT...G. TP SCH (12:15)
[2020-10-22 16:00] VITALS: BP 118/63
== END 2020-10-22 19:08 | disposition home health service (06) | DRG 871 ==
LOC: ER 12:03 → ERHOLD 15:20 → MED/SURG2 15:49 → ICU 10-07 06:21 → IMCU 10-21 19:30
PROVIDERS: ADMIT Internal Medicine; ATTEND Internal Medicine
PROC: 02HV33Z Insertion of Infusion Device into Superior Vena Cava, Percutaneous Approach (ICD-10-PCS; principal; 2020-10-07)
PROC: B548ZZA Ultrasonography of Superior Vena Cava, Guidance (ICD-10-PCS; 2020-10-07)
PROC: 3E043XZ Introduction of Vasopressor into Central Vein, Percutaneous Approach (ICD-10-PCS; 2020-10-07)
PROC: 02HV33Z Insertion of Infusion Device into Superior Vena Cava, Percutaneous Approach (ICD-10-PCS; 2020-10-08)
PROC: B548ZZA Ultrasonography of Superior Vena Cava, Guidance (ICD-10-PCS; 2020-10-08)
PROC: 5A1D70Z Performance of Urinary Filtration, Intermittent, Less than 6 Hours Per Day (ICD-10-PCS; 2020-10-08)
PROC: 5A1D70Z Performance of Urinary Filtration, Intermittent, Less than 6 Hours Per Day (ICD-10-PCS; 2020-10-09)
PROC: 5A1D70Z Performance of Urinary Filtration, Intermittent, Less than 6 Hours Per Day (ICD-10-PCS; 2020-10-10)
PROC: 5A1D70Z Performance of Urinary Filtration, Intermittent, Less than 6 Hours Per Day (ICD-10-PCS; 2020-10-11)
PROC: 5A1D70Z Performance of Urinary Filtration, Intermittent, Less than 6 Hours Per Day (ICD-10-PCS; 2020-10-13)
PROC: 5A1D70Z Performance of Urinary Filtration, Intermittent, Less than 6 Hours Per Day (ICD-10-PCS; 2020-10-16)
DX: A41.51 Sepsis due to Escherichia coli [E. coli] (principal); J15.6 Pneumonia due to other Gram-negative bacteria; N17.0 Acute kidney failure with tubular necrosis; G93.41 Metabolic encephalopathy; I50.23 Acute on chronic systolic (congestive) heart failure; R65.21 Severe sepsis with septic shock; Z16.12 Extended spectrum beta lactamase (ESBL) resistance; E87.2 Acidosis; N10 Acute pyelonephritis; Z68.39 Body mass index [BMI] 39.0-39.9, adult; I11.0 Hypertensive heart disease with heart failure; I25.2 Old myocardial infarction; I25.10 Atherosclerotic heart disease of native coronary artery without angina pectoris; E78.5 Hyperlipidemia, unspecified; E66.9 Obesity, unspecified; Z95.5 Presence of coronary angioplasty implant and graft; Z88.2 Allergy status to sulfonamides; Z88.8 Allergy status to other drugs, medicaments and biological substances; E66.01 Morbid (severe) obesity due to excess calories; Z91.14 Patient's other noncompliance with medication regimen; Z86.19 Personal history of other infectious and parasitic diseases; R09.02 Hypoxemia; B96.20 Unspecified Escherichia coli [E. coli] as the cause of diseases classified elsewhere; E11.9 Type 2 diabetes mellitus without complications; I48.0 Paroxysmal atrial fibrillation; Z95.810 Presence of automatic (implantable) cardiac defibrillator; Z83.3 Family history of diabetes mellitus; Z82.49 Family history of ischemic heart disease and other diseases of the circulatory system; T36.1X5A Adverse effect of cephalosporins and other beta-lactam antibiotics, initial encounter; Y92.230 Patient room in hospital as the place of occurrence of the external cause; D69.6 Thrombocytopenia, unspecified; R41.0 Disorientation, unspecified; R44.1 Visual hallucinations
CPT/HCPCS: 36415; 36600; 70450; 70551; 71045; 74018; 74230; 76770; 80048; 80053; 80061; 81001; 82140; 82550; 82553; 82570; 82575; 82607; 82805; 82948; 83605; 83615; 83735; 83880; 84100; 84300; 84484; 84550; 85025; 85610; 85730; 86022; 86704; 86707; 87040; 87071; 87086; 87186; 87205; 87340; 87400; 90962; 93005; 93306; 95812; 96360; 96372; 97139; 99251; 99284; J0456; J0696; J1160; J1200; J1335; J1644; J1650; J1720; J1940; J2001; J2060; J2150; J2185; J2405; J2920; J3411; J3486; J7030; J7040; J7050; J7070; Q0163; U0002

== ENCOUNTER 2021-01-10 11:40 | Emergency (ER) | payer MEDICARE ==
[~2021-01-10] VITALS: Ht 157.5 cm; Wt 98.9 kg
[2021-01-10] MEDS ORDERED: HYDROCODONE/APAP 7.5MG-325MG 1 EA TAB PO STA (13:54)
[2021-01-10] MEDS ORDERED: HYDROCODON-ACE1 EA11 PO (15:08)
== END 2021-01-10 15:32 | disposition home or self-care (01) ==
LOC: ER 11:50
DX: S42.292A Other displaced fracture of upper end of left humerus, initial encounter for closed fracture (principal); W01.0XXA Fall on same level from slipping, tripping and stumbling without subsequent striking against object, initial encounter; Y93.A1 Activity, exercise machines primarily for cardiorespiratory conditioning; Y92.531 Health care provider office as the place of occurrence of the external cause; I10 Essential (primary) hypertension; E11.9 Type 2 diabetes mellitus without complications; E78.5 Hyperlipidemia, unspecified; I25.10 Atherosclerotic heart disease of native coronary artery without angina pectoris; E66.9 Obesity, unspecified; I25.2 Old myocardial infarction
CPT/HCPCS: 70450; 71045; 72192; 99284

== ENCOUNTER 2021-03-16 08:54 | Emergency (ER) | payer MEDICARE ==
[~2021-03-16] VITALS: Ht 162.6 cm; Wt 99.8 kg
[~2021-03-16 08:54] MED LIST changes: +HYDROCODON-ACE1 EA11 PO
[2021-03-16] MEDS ORDERED: FUROSEMIDE INJ 10 MG/ML 4 ML VIAL IV ONE (11:00)
[2021-03-16 12:58] VITALS: BP 151/70
== END 2021-03-16 13:00 | disposition other institution (70) ==
LOC: FSED 09:35
DX: R09.02 Hypoxemia (principal); I50.9 Heart failure, unspecified; I10 Essential (primary) hypertension; E11.9 Type 2 diabetes mellitus without complications; E78.5 Hyperlipidemia, unspecified; I25.10 Atherosclerotic heart disease of native coronary artery without angina pectoris; E66.9 Obesity, unspecified; I25.2 Old myocardial infarction; Z95.5 Presence of coronary angioplasty implant and graft; Z20.822 Contact with and (suspected) exposure to COVID-19
CPT/HCPCS: 71045; 80053; 82553; 83880; 84484; 85025; 85610; 87400; 93005; 96374; 99284; J1940; U0002